=== PATIENT | female | born 1945 ===

== ENCOUNTER → 2020-05-08 14:45 | Outpatient (BNVA) | payer MEDICARE, OTHER, SELFPAY | PROVIDERS: PCP Internal Medicine; Visit Provider Physician Assistant | DX: K59.09 Other constipation (principal); Z78.9 Other specified health status | CPT/HCPCS: Q3014 ==

== ENCOUNTER 2020-07-05 09:37 | Day surgery (SDC) | payer MEDICARE, OTHER, SELFPAY ==
[2020-06-28 16:50] VITALS: BMI 30.9
--- NOTE | 2020-07-04 12:11 | HO.ANESPROP2 ---
Documented by User: Nellie Alvarado 07/04/20 12:12 HPI - Anesthesia Eval Consult details Narrative: 75yo F for Colonoscopy PMFSH Active Problems Active Problems: All Active Problems (Updated 06/28/20 @ 16:45 by Susan Cristina) Poor historian (Acute) Right shoulder pain (Acute) Left hip pain (Acute) Right elbow pain (Acute) Hypovitaminosis D (Acute) Chronic constipation (Acute) Past Medical History Medical History Abdominal gas pain Chronic constipation Headache Hypovitaminosis D Left hip pain Low back pain Right elbow pain Right shoulder pain Seasonal allergies Family History Family History Father Throat cancer Mother Cancer of unknown origin Surgical History Surgical History Hx of cataract extraction Hx of colonoscopy Social History Social History Smoking Status: Never smoker Use of substances other than those prescribed or required for medical reasons: No Advance Directives: No Advance Directives Information Provided: No Advance Directives on File: No Current occupational status: disabled Meds Allergies Allergy/AdvReac Type Severity Reaction Status Date / Time apple [Apple] Allergy Severe THROAT Verified 06/28/20 16:46 SWELLING pear [Pear] Allergy Severe THROAT Verified 06/28/20 16:46 SWELLING banana [BANANA] Allergy Unknown HIVES,THROAT Verified 06/28/20 16:46 SWELLING latex Allergy Rash Verified 06/28/20 16:46 fruits Allergy Unknown anaphylaxis Uncoded 06/28/20 16:46 nuts Allergy Unknown anaphylaxis Uncoded 06/28/20 16:46 Home Medications Medication Instructions Recorded Confirmed Last Taken Type acetaminophen 650 mg 650 mg PO Q8H PRN 05/22/20 06/28/20 Unknown History tablet,extended release cetirizine 10 mg tablet 10 mg PO DAILY PRN 05/22/20 06/28/20 Unknown History cholecalciferol (vitamin D3) 50 50 mcg PO DAILY 05/22/20 06/28/20 Unknown History mcg (2,000 unit) tablet clotrimazole-betamethasone 1 appl TOPICAL BID 05/22/20 05/22/20 Unknown History %-0.05 % topical cream conjugated estrogens 0.625 mg/gram 0 mg VAGINAL 05/22/20 05/22/20 Unknown History vaginal cream diclofenac sodium 1 % topical gel 2 g TOPICAL QID 05/22/20 05/22/20 Unknown History fknkxfsk-pzmikya-iwdw-lutein tablet 1 tab PO .once a day tab 05/22/20 06/28/20 Unknown History oxyquinoline 0.025 %-sodium lauryl ea VAGINAL 2XW 05/22/20 05/22/20 Unknown History sulfate 0.01 % vaginal gel Exam Exam Date and Time: July 04, 2020 121 Height,Weight and Vital Signs: Height 4 ft 9 in Weight 64.864 kg Assessment and Plan Assessment Anesthesia Assessment: Chart Reviewed Documented by User: Joie Gonzalez 07/05/20 10:20 [facility] Past Medical History Medical History Abdominal gas pain Chronic constipation Headache Hypovitaminosis D Left hip pain Low back pain Right elbow pain Right shoulder pain Seasonal allergies Family History Family History Father Throat cancer Mother Cancer of unknown origin Family history of problems with anesthesia: No Surgical History Surgical History Hx of cataract extraction Hx of colonoscopy History of Problems with Anesthesia: No Social History Social History Smoking Status: Never smoker Use of substances other than those prescribed or required for medical reasons: No Advance Directives: No Advance Directives Information Provided: No Advance Directives on File: No Current occupational status: disabled Meds Allergies Allergy/AdvReac Type Severity Reaction Status Date / Time apple [Apple] Allergy Severe THROAT Verified 06/28/20 16:46 SWELLING pear [Pear] Allergy Severe THROAT Verified 06/28/20 16:46 SWELLING banana [BANANA] Allergy Unknown HIVES,THROAT Verified 06/28/20 16:46 SWELLING latex Allergy Rash Verified 06/28/20 16:46 fruits Allergy Unknown anaphylaxis Uncoded 06/28/20 16:46 nuts Allergy Unknown anaphylaxis Uncoded 06/28/20 16:46 Home Medications Medication Instructions Recorded Confirmed Last Taken Type acetaminophen 650 mg 650 mg PO Q8H PRN 05/22/20 06/28/20 Unknown History tablet,extended release cetirizine 10 mg tablet 10 mg PO DAILY PRN 05/22/20 06/28/20 Unknown History cholecalciferol (vitamin D3) 50 50 mcg PO DAILY 05/22/20 06/28/20 Unknown History mcg (2,000 unit) tablet clotrimazole-betamethasone 1 appl TOPICAL BID 05/22/20 05/22/20 Unknown History %-0.05 % topical cream conjugated estrogens 0.625 mg/gram 0 mg VAGINAL 05/22/20 05/22/20 Unknown History vaginal cream diclofenac sodium 1 % topical gel 2 g TOPICAL QID 05/22/20 05/22/20 Unknown History bqlafdxf-leobfgr-koiq-lutein tablet 1 tab PO .once a day tab 05/22/20 06/28/20 Unknown History oxyquinoline 0.025 %-sodium lauryl ea VAGINAL 2XW 05/22/20 05/22/20 Unknown History sulfate 0.01 % vaginal gel Exam Height,Weight and Vital Signs: Vital Signs Temp Pulse Resp BP Pulse Ox 07/05/20 09:45 98.6 F 80 18 112/59 L 98 Airway Mallampati Class: II TM Dist: >3cm Neck ROM: Full Heart: RRR Lungs: CTAB Assessment and Plan Assessment Anesthesia Assessment: Anesthesia Plan Discussed and Chart Reviewed Final Anesthetic Review NPO: Yes ASA Class: II Final Preanesthetic Review: No Changes in Pt Med Stat, Meds/Allgs Chart Reviewed, Consent Obtained/Reviewed and Anes Risks/Benef Reviewed Patient Risk: Low Procedure Risk: Low Assessment/Block/Sedation in SS: Assess/Block/Sedation-SS Anesthetic Plan Anesthetic Plan: MAC: Disposition: Standard PACU
[2020-07-05 09:45] VITALS: BP 112/59; PULSE 80; RESP 18; TEMP 37; O2SAT 98
[2020-07-05] MEDS: Lactated Ringers 1,000 ML 100 ML IVCONT (10:02)
--- NOTE | 2020-07-05 10:18 | MHC.SHP ---
Pre-Procedural Eval Section B Chief Complaint: chronic constipation Relevant Family History (Specify if Yes): No Relevant Social History: None Present Medications: see Short Stay Collaborative assessment Medical History: Significant History (Abdominal gas pain Chronic constipation Headache Hypovitaminosis D Left hip pain Low back pain Right elbow pain Right shoulder pain Seasonal allergies) History of Previous Operations: Relevant previous surgery/procedure and date(s) (Hx of cataract extraction Hx of colonoscopy) Allergies: Allergies Allergy/AdvReac Type Severity Reaction Status Date / Time apple [Apple] Allergy Severe THROAT Verified 06/28/20 16:46 SWELLING pear [Pear] Allergy Severe THROAT Verified 06/28/20 16:46 SWELLING banana [BANANA] Allergy Unknown HIVES,THROAT Verified 06/28/20 16:46 SWELLING latex Allergy Rash Verified 06/28/20 16:46 fruits Allergy Unknown anaphylaxis Uncoded 06/28/20 16:46 nuts Allergy Unknown anaphylaxis Uncoded 06/28/20 16:46 Review of Systems Sugical H&P ROS: Negative: Constitution, Cardiovascular, Respiratory, Neurological, Psychiatric, Hem-Onc, Allergic/Immunologic, Gastrointestinal, Genitourinary, Musculoskeletal, Integumentary, Endocrine and Eyes/Ears/Nose/Throat Exam Surgical H&P Exam: Normal: HEENT, Normal: Heart, Normal: Lungs, Normal: Extremities, Normal: Abdomen, Normal: Skin and Normal: Neurological Plan Diagnosis/Plan: Unchanged I have reviewed the history and physical and performed a pertinent physical examination on my patient. No changes have occurred unless specified.
--- NOTE | 2020-07-05 10:18 | PM.OP ---
Brief Operative Note Date of Service: 07/05/20 Pre-op diagnosis: constipation, rectal bleeding Post-op diagnosis: same Procedure: see op note Surgeon: Dalton Trejo MD Anesthesia: MAC Estimated blood loss (mL): 0 Condition: stable Disposition: PACU
--- NOTE | 2020-07-05 10:19 | W.PM.OPN ---
Operative Note Operative Note Date of Service: 07/05/20 Narrative: Operative Information Procedure Description: Colonoscopy COLONOSCOPY Instrument: Olympus variable stiffness pediatric scope 190L Colonoscopy Monitoring: Vital signs and clinical assessment, continuous EKG monitoring, Pulse oximetry, Carbon Dioxide monitoring and blood pressure monitoring were done throughout the procedure. Colon withdrawal time was 10 minutes. Procedure: The patient was placed in the left lateral decubitis position and pre-procedure medications were administered. After a digital rectal examination of the ano-rectum, the video colonoscope was inserted into the rectum and advanced through the colon to the cecum/TI. The colonoscope was slowly withdrawn in a retrograde panoramic fashion and the colon mucosa was carefully examined including a retroflexed view of the rectum. Findings and interventions are described below. Procedure Difficulty: moderate due to tight colon Findings: Terminal Ileum-normal Cecum:normal Ascending Colon: normal Transverse Colon -normal Descending Colon:normal Sigmoid Colon: few small diverticula seen Rectum: Retroflexion with moderate sized internal hemorrhoids, grade I Anorectum - normal Colon preparation: Davison Bowel Preparation Scale Right colon; 3 Transverse colon: 3 Left colon; 3 (0 = Unprepared colon segment with mucosa not seen due to solid stool that cannot be cleared. 1 = Portion of mucosa of the colon segment seen, but other areas of the colon segment not well seen due to staining, residual stool and/or opaque liquid. 2 = Minor amount of residual staining, small fragments of stool and/or opaque liquid, but mucosa of colon segment seen well. 3 = Entire mucosa of colon segment seen well with no residual staining, small fragments of stool or opaque liquid) Impression and Post Procedure Diagnosis: internal hemorrhoids mild diverticulosis Plan: High fiber diet leaflet Avoid straining at stool, epsom salts and sitz bath, anusol supps or cream as needed Repeat Colonoscopy in 10 years if health allows or earlier if clinically indicated if constipation is ongoing then recommend sitz marker study to check for slow colonic transit and anal rectal manometry to r/o pelvic floor dysfunction Above findings were reviewed with the patient and relevant handouts were provided if indicated.
[2020-07-05 11:05] VITALS: BP 116/63; PULSE 88; RESP 22; TEMP 36.2; O2SAT 96
[2020-07-05 11:33] VITALS: BP 119/56; PULSE 81; RESP 17; TEMP 36.2; O2SAT 96
== END 2020-07-05 12:00 | disposition home or self-care (01) ==
PROVIDERS: PCP Internal Medicine; Visit Provider Internal Medicine Gastroenterology
PROC: 0DJD8ZZ Inspection of Lower Intestinal Tract, Via Natural or Artificial Opening Endoscopic (ICD-10-PCS; CPT 45378; principal; 2020-07-05 10:20)
DX: K59.09 Other constipation (principal); K57.30 Diverticulosis of large intestine without perforation or abscess without bleeding; K64.0 First degree hemorrhoids; R10.9 Unspecified abdominal pain; E55.9 Vitamin D deficiency, unspecified; Z79.899 Other long term (current) drug therapy; Z87.891 Personal history of nicotine dependence
CPT/HCPCS: 45378

== ENCOUNTER 2020-07-17 10:03 | Outpatient (REF) | payer MEDICARE, OTHER, SELFPAY ==
--- NOTE | ~2020-07-17 | XR_ITS ---
EXAMINATION: RIGHT SHOULDER AND LEFT HIP X-RAYS CLINICAL INFORMATION: Pain COMPARISON: None TECHNIQUE: 4 views of the right shoulder and 2 views of the left hip FINDINGS: Right shoulder: Bone alignment is normal. No fracture or dislocation is seen. The glenohumeral joint is normal. There is arthritis at the acromioclavicular joint. Soft tissues are unremarkable. Left hip: Bone alignment is normal. No fracture or dislocation is seen. There is arthritis at the left hip joint with joint space narrowing and osteophyte formation. Soft tissues are unremarkable. XR/XR hip LT min 2V IMPRESSION: Right shoulder: Arthritis at the acromioclavicular joint. Left hip: Arthritis.
--- NOTE | ~2020-07-17 | XR_ITS ---
EXAMINATION: XR ELBOW, RIGHT CLINICAL INFORMATION: Pain COMPARISON: None TECHNIQUE: AP, lateral, and oblique views of the right elbow. FINDINGS: Bone alignment is normal. No fracture or dislocation is seen. The joint spaces are normal. There is are small soft tissue calcifications or ossifications adjacent to the medial and lateral humeral epicondyles. XR/XR elbow RT 2V IMPRESSION: No fracture, dislocation or acute joint effusion seen. Small soft tissue calcifications or ossifications adjacent to the posterolateral humeral epicondyles.
--- NOTE | ~2020-07-17 | XR_ITS ---
EXAMINATION: RIGHT SHOULDER AND LEFT HIP X-RAYS CLINICAL INFORMATION: Pain COMPARISON: None TECHNIQUE: 4 views of the right shoulder and 2 views of the left hip FINDINGS: Right shoulder: Bone alignment is normal. No fracture or dislocation is seen. The glenohumeral joint is normal. There is arthritis at the acromioclavicular joint. Soft tissues are unremarkable. Left hip: Bone alignment is normal. No fracture or dislocation is seen. There is arthritis at the left hip joint with joint space narrowing and osteophyte formation. Soft tissues are unremarkable. XR/XR shoulder RT min 2V IMPRESSION: Right shoulder: Arthritis at the acromioclavicular joint. Left hip: Arthritis.
[2020-07-21 13:31] LABS: Vitamin D 25-OH, D2 8 ng/mL; Vitamin D 25-OH, D3 21 ng/mL; Vitamin D 25-OH, Total 29 ng/mL (30-100)
== END 2020-07-17 10:04 | disposition home or self-care (01) ==
LOC: HO.LAB 10:03
PROVIDERS: PCP Internal Medicine; Visit Provider Internal Medicine
DX: M25.521 Pain in right elbow (principal); M25.552 Pain in left hip; M25.511 Pain in right shoulder; E55.9 Vitamin D deficiency, unspecified
CPT/HCPCS: 36415; 73030; 73070; 73502; 82306

== ENCOUNTER 2021-01-10 10:07 | Outpatient (REF) | payer MEDICARE, OTHER, SELFPAY | END 2021-01-10 10:08 | disposition home or self-care (01) | LOC: HO.LAB 10:07 | PROVIDERS: PCP Internal Medicine; Visit Provider Internal Medicine | DX: Z20.822 Contact with and (suspected) exposure to COVID-19 (principal) | CPT/HCPCS: C9803; U0003; U0005 ==

== ENCOUNTER 2021-02-14 11:32 | Outpatient (REF) | payer MEDICARE, OTHER, SELFPAY ==
--- NOTE | ~2021-02-14 | MM_ITS ---
EXAMINATION: MM SCREENING DIGITAL BREAST TOMOSYNTHESIS, BILATERAL CLINICAL INFORMATION: Screening. Asymptomatic. The lifetime risk of breast cancer based on the Tyrer-Cuzick Model is 2.0%. COMPARISON: Mammography: January 11, 2020 and studies dating back to April 15, 2012 TECHNIQUE: Digital breast tomosynthesis is performed in both the craniocaudal and mediolateral oblique views along with computer-aided detection (CAD). Synthesized 2D images are generated from the tomosynthesis. FINDINGS: There are scattered areas of fibroglandular density (ACR BI-RADS breast composition Category b). There are no significant masses, abnormal calcifications, or other abnormalities. MM/MM tomosynthesis screening BI IMPRESSION: There are no significant changes from prior study. ASSESSMENT: BI-RADS 1: Negative RECOMMENDATION: Routine annual mammography screening. This patient's information was entered into a reminder system with a target due date for their next mammogram.
== END 2021-02-14 11:33 | disposition home or self-care (01) ==
LOC: HO.MAMMO 11:32
PROVIDERS: Visit Provider Internal Medicine
DX: Z12.31 Encounter for screening mammogram for malignant neoplasm of breast (principal)
CPT/HCPCS: 77063; 77067

== ENCOUNTER 2021-04-17 12:39 | Outpatient (REF) | payer MEDICARE, MEDICAID, SELFPAY ==
[2021-04-17 16:16] LABS: COVID-19 Test Negative (Negative); IDNOW Serial# 55D5AD1C
== END 2021-04-17 12:40 | disposition home or self-care (01) ==
LOC: HO.LAB 12:39
PROVIDERS: Visit Provider Internal Medicine
DX: Z20.822 Contact with and (suspected) exposure to COVID-19 (principal)
CPT/HCPCS: 36415; 87635; C9803

== ENCOUNTER 2021-05-27 10:23 | Outpatient (REF) | payer MEDICARE, SELFPAY ==
[2021-05-27 12:15] LABS: Alanine Aminotransferase 13 U/L (0-31); Alkaline Phosphatase 99 U/L (39-117); Anion Gap 10 (12-20); Aspartate Amino Transferase 17 U/L (5-31); Bilirubin Total 0.7 mg/dL (0.0-1.0); Blood Urea Nitrogen 13 mg/dL (9-16); Calcium 9.6 mg/dL (8.4-10.2); Carbon Dioxide 28 mmol/L (22-29); Chloride 107 mmol/L (96-108); Cholesterol 196 mg/dL; Estimated Glomerular Filt Rate > 60; Glucose Fasting 107 mg/dL (60-99); HDL Cholesterol 42 mg/dL; LDL Cholesterol Calculated 110 mg/dl; Potassium 4.4 mmol/L (3.3-5.1); Sodium 141 mmol/L (135-145); Total Protein 7.5 g/dL (6.5-8.0); Triglycerides 220 mg/dL
== END 2021-05-27 10:24 | disposition home or self-care (01) ==
LOC: HO.LAB 10:23
PROVIDERS: PCP Internal Medicine; Visit Provider Internal Medicine
DX: Z00.00 Encounter for general adult medical examination without abnormal findings (principal); E78.5 Hyperlipidemia, unspecified
CPT/HCPCS: 36415; 80053; 80061

== ENCOUNTER 2021-06-12 08:29 | Outpatient (REF) | payer MEDICARE, SELFPAY ==
--- NOTE | ~2021-06-12 | MM_ITS ---
EXAMINATION: BONE DENSITOMETRY CLINICAL INDICATION: Menopause. COMPARISON: Previous BD dated 05/25/2018 and baseline BD dated 10/30/2006. TECHNIQUE: Using a [employer] DXA System (software version: 13.1) manufactured by [employer], dual-energy x-ray absorptiometry was performed of the lumbar spine and left hip. The images are of good technical quality. Summary results are attached. FINDINGS: AP SPINE L1-L4: Current: BMD 1.042 g/cm2, Z-score 0.6, T-score -1.1, osteopenia, 0.5% increase from previous, 0.4% increase from baseline (<5% change is not significant). Prior: BMD 1.037 g/cm2. Baseline: BMD 1.038 g/cm2. LEFT FEMUR, NECK: Current: BMD 0.741 g/cm2, Z-score -0.3, T-score -2.1, osteopenia. Prior: BMD 0.799 g/cm2. Baseline: BMD 0.788 g/cm2. LEFT FEMUR, TOTAL: Current: BMD 0.881 g/cm2, Z-score 0.7, T-score -1.0, normal, 3.5% decrease from previous, 3.6% decrease from baseline (<5% change is not significant). Prior: BMD 0.913 g/cm2. Baseline: BMD 0.914 g/cm2. IDENTIFIED RISK FACTORS: Menopause. HISTORY OF FRACTURE: None listed. MEDICATIONS: Calcium, vitamin D. MM/XR DEXA axial skeleton IMPRESSION: 1. DIAGNOSIS: Osteopenia based on the lowest T-score value of -2.1 in the femoral neck applying World Health Organization criteria. 2. 10-YEAR FRACTURE RISK PREDICTION, FRAX: Major osteoporotic fracture (clinical spine, forearm, hip or shoulder) 7.7%. Hip fracture 2.0%. 3. Treatment Recommendations: NOF guidelines recommend consideration for treatment in postmenopausal women and men age 50 and older presenting with the following: -A hip or vertebral (clinical or morphometric) fracture. -T-score less than or equal to -2.5 at the femoral neck or spine after appropriate evaluation to exclude secondary causes. -Low bone mass at the hip or spine and a 10-year fracture probability by FRAX of greater than or equal to 3% for hip fracture or greater than or equal to 20% for major osteoporotic fracture based on the [place] adapted WHO algorithm. 4. Other Recommendations: All treatment decisions require clinical judgment and consideration of individual patient factors, including patient preferences, comorbidities, previous drug use, risk factors not captured in the FRAX model (e.g. frailty, falls, vitamin D deficiency, increased bone turnover, interval significant decline in bone density) and possible under or overestimation of fracture risk by FRAX. Additional medical evaluation for secondary cause of low bone mineral density may be appropriate. FUTURE SCAN RECOMMENDATION: People with diagnosed cases of osteoporosis or at high risk for fracture should have regular bone mineral density tests. For patients eligible for Medicare, routine testing is allowed once every 2 years. The testing frequency can be increased to one year for patients who have rapidly progressing disease, those who are receiving or discontinuing medical therapy to restore bone mass, or have additional risk factors.
== END 2021-06-12 08:30 | disposition home or self-care (01) ==
LOC: HO.MAMMO 08:29
PROVIDERS: PCP Internal Medicine; Visit Provider Internal Medicine
DX: Z13.820 Encounter for screening for osteoporosis (principal); M85.80 Other specified disorders of bone density and structure, unspecified site; Z78.0 Asymptomatic menopausal state; Z79.899 Other long term (current) drug therapy
CPT/HCPCS: 77080

== ENCOUNTER 2022-02-07 10:12 | Outpatient (REF) | payer MEDICARE, SELFPAY ==
[2022-02-07 11:32] LABS: Alanine Aminotransferase 12 U/L (0-31); Albumin Level 4.1 g/dL (3.5-5.0); Alkaline Phosphatase 94 U/L (39-117); Anion Gap 15 (12-20); Aspartate Amino Transferase 19 U/L (5-31); Bilirubin Total 0.6 mg/dL (0.0-1.0); Blood Urea Nitrogen 18 mg/dL (9-16); Calcium 9.6 mg/dL (8.4-10.2); Carbon Dioxide 26 mmol/L (22-29); Chloride 107 mmol/L (96-108); Cholesterol 191 mg/dL; Estimated Glomerular Filt Rate > 60; Glucose Fasting 127 mg/dL (60-99); HDL Cholesterol 46 mg/dL; LDL Cholesterol Calculated 110 mg/dl; Potassium 4.2 mmol/L (3.3-5.1); Sodium 144 mmol/L (135-145); Total Protein 7.4 g/dL (6.5-8.0); Triglycerides 176 mg/dL
== END 2022-02-07 10:13 | disposition home or self-care (01) ==
LOC: HO.LAB 10:12
PROVIDERS: PCP Internal Medicine; Visit Provider Internal Medicine
DX: E78.5 Hyperlipidemia, unspecified (principal); L98.9 Disorder of the skin and subcutaneous tissue, unspecified; E55.9 Vitamin D deficiency, unspecified
CPT/HCPCS: 36415; 80053; 80061; 82306

== ENCOUNTER 2022-02-17 12:03 | Outpatient (REF) | payer MEDICARE, SELFPAY ==
--- NOTE | ~2022-02-17 | MM_ITS ---
EXAMINATION: MM SCREENING DIGITAL BREAST TOMOSYNTHESIS, BILATERAL CLINICAL INFORMATION: Screening. Asymptomatic. The lifetime risk of breast cancer based on the Tyrer-Cuzick Model is under 3%. COMPARISON: Mammography: 02/14/2021, 01/11/2020, 01/05/2019, 01/07/2018 TECHNIQUE: Digital breast tomosynthesis is performed in both the craniocaudal and mediolateral oblique views along with computer-aided detection (CAD). Synthesized 2D images are generated from the tomosynthesis. FINDINGS: There are scattered areas of fibroglandular density (ACR BI-RADS breast composition Category b). Parenchymal pattern is similar to prior studies. Scattered asymmetries are stable including the posterior outer right breast. There is no developing density or interval architectural abnormality or mass or abnormal calcifications. The axilla and skin contours are unremarkable. No significant changes. MM/MM tomosynthesis screening BI IMPRESSION: No mammographic evidence of malignancy. ASSESSMENT: BI-RADS 2: Benign RECOMMENDATION: Routine annual mammography screening. This patient's information was entered into a reminder system with a target due date for their next mammogram.
== END 2022-02-17 12:04 | disposition home or self-care (01) ==
LOC: HO.MAMMO 12:03
PROVIDERS: PCP Internal Medicine; Visit Provider Internal Medicine
DX: Z12.31 Encounter for screening mammogram for malignant neoplasm of breast (principal)
CPT/HCPCS: 77063; 77067

== ENCOUNTER 2022-05-06 08:00 | Outpatient (REF) | payer OTHER, SELFPAY ==
[2022-05-06 09:19] LABS: Alanine Aminotransferase 16 U/L (0-31); Albumin Level 3.9 g/dL (3.5-5.0); Alkaline Phosphatase 106 U/L (39-117); Anion Gap 12 (12-20); Aspartate Amino Transferase 16 U/L (5-31); Bilirubin Total 0.3 mg/dL (0.0-1.0); Blood Urea Nitrogen 18 mg/dL (9-16); Calcium 9.2 mg/dL (8.4-10.2); Carbon Dioxide 26 mmol/L (22-29); Chloride 109 mmol/L (96-108); Cholesterol 166 mg/dL; Estimated Glomerular Filt Rate > 60; Glucose Fasting 103 mg/dL (60-99); HDL Cholesterol 37 mg/dL; LDL Cholesterol Calculated 85 mg/dl; Potassium 4.2 mmol/L (3.3-5.1); Sodium 143 mmol/L (135-145); Total Protein 7.2 g/dL (6.5-8.0); Triglycerides 220 mg/dL
[2022-05-06 09:35] LABS: Vitamin D 25-OH Total 31.6 ng/mL (>30)
== END 2022-05-06 08:01 | disposition home or self-care (01) ==
LOC: HO.LAB 08:00
PROVIDERS: PCP Internal Medicine; Visit Provider Internal Medicine
DX: E55.9 Vitamin D deficiency, unspecified (principal); M85.80 Other specified disorders of bone density and structure, unspecified site; E78.2 Mixed hyperlipidemia
CPT/HCPCS: 36415; 80053; 80061; 82306

== ENCOUNTER 2022-08-28 10:16 | Outpatient (REF) | payer MEDICARE, SELFPAY | END 2022-08-28 10:17 | disposition home or self-care (01) | LOC: HO.SH 10:16 | PROVIDERS: Visit Provider Internal Medicine | DX: Z01.118 Encounter for examination of ears and hearing with other abnormal findings (principal); H90.3 Sensorineural hearing loss, bilateral | CPT/HCPCS: 92557; 92567 ==

== ENCOUNTER 2022-12-24 08:05 | Outpatient (AMB) | payer MEDICARE, SELFPAY ==
[2022-12-24 08:14] VITALS: BP 118/62; BMI 29.6
--- NOTE | 2022-12-24 08:14 | MHC.PC.OV ---
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 Accompanied by: Self / Same As Patient Allergies apple [Apple] Allergy (Severe, Verified 12/24/22 08:31) THROAT SWELLING pear [Pear] Allergy (Severe, Verified 12/24/22 08:31) THROAT SWELLING banana [BANANA] Allergy (Intermediate, Verified 12/24/22 08:31) HIVES,THROAT SWELLING latex Allergy (Intermediate, Verified 12/24/22 08:31) Rash nystatin Allergy (Intermediate, Verified 12/24/22 08:31) swelling nuts Allergy (Severe, Uncoded 12/24/22 08:31) anaphylaxis fruits Allergy (Intermediate, Uncoded 12/24/22 08:31) anaphylaxis Medication List - Last Reconciled 12/24/22 by Chela Mansfield MD acetaminophen ER 650 mg PO Q8H PRN 30 days calcium carbonate 1,200 mg (2 x 600 mg calcium (1,500 mg)) PO DAILY 90 days cetirizine 10 mg PO DAILY PRN 90 days cholecalciferol (vitamin D3) 25 mcg PO DAILY 90 days clotrimazole-betamethasone 1-0.05 % 1 appl topical BID diclofenac sodium 1% 2 grams topical QID 30 days docusate sodium (Colace) 200 mg (2 x 100 mg) PO BEDTIME hydroxyzine HCl 25 mg PO BEDTIME 30 days magnesium 250 mg PO DAILY 90 days melatonin 5 mg PO BEDTIME PRN 90 days mirabegron ER (Myrbetriq) 25 mg PO DAILY 90 days ucucjrfs-uezkajm-morx-lutein 1 tab PO .once a day nystatin 1 appl topical DAILY 2 weeks oxyquinoline-sod.lauryl sulfat 0.025-0.01 % 1 ea vaginal 2XW 30 days polyethylene glycol 3350 (Miralax) 17 grams PO DAILY Tobacco use date assessed: 05/28/22 Fall risk assessment: No Falls in past year Last assessed Fall Risk: 12/24/22 Dental Screening Dental Screen Date: 12/24/22 Did you have a dental visit in the last 12 months?: No Did you have a dental problem in the last 6 months where you did not have access to dental care?: No Was dental information given to patient?: Patient has dentist HPI HPI Comments History of Present Illness Details This is a 77-year-old female with chronic constipation that complains of lumbar pain, left knee pain and voice tremor that has been present for years. Chronic constipation stable with medications. She denies any fever, bowel or bladder incontinence. Lumbar pain does not radiate to the legs. Left knee pain aggravated by standing up and walking. Has full active range of motion. No chest pain or shortness of breath. [facility] Medical History (Updated 12/24/22 @ 09:27 by Chela Mansfield MD) Abdominal gas pain Chronic constipation Headache Hypovitaminosis D Left hip pain Low back pain Physical exam Postmenopausal Right elbow pain Right shoulder pain Seasonal allergies Surgical History Hx of cataract extraction Hx of colonoscopy Family History Father Throat cancer Mother Cancer of unknown origin Social History Household Members Other:: alone Housing: Apartment Alcohol intake: current Alcohol intake frequency: holidays/special occasions only Alcohol type: wine and hard liquor Patient Tobacco Use Status: Never used Tobacco e-Cigarette/Vaping Use: Never Used Second Hand Smoke Exposure: No service: No Current occupational status: disabled Cognitive needs: No Hearing needs: Yes Vision needs: Yes Questionnaire Thrive Questionnaire Date Thrive assessed: 05/28/22 SUSI-7 AMB Questionnaire SUSI-7 Date SUSI - 7 assessed: 05/28/22 Source: Developed by Drs. Jeronimo De Leon, Joy Dominguez, Adonis Seth and colleagues, with an educational kristal from [employer]. Review of Systems Const All systems reviewed & are unremarkable except as noted in HPI and below Eyes Reports no additional complaints, Denies change in vision and Denies other visual disturbances Card Denies chest pain at rest, Denies chest pain with activity, Denies edema, Denies irregular heart rhythm, Denies claudication, Denies dyspnea, Denies dyspnea on exertion, Denies orthopnea, Denies paroxysmal nocturnal dyspnea and Denies slow heart rate Resp Denies cough, Denies dyspnea and Denies dyspnea on exertion GI Denies abdominal pain, Denies change in bowel habits, Denies excessive flatus, Denies nausea and Denies vomiting Denies urinary incontinence, Denies urinary hesitancy and Denies urinary urgency Musc Denies abnormal gait, Denies atrophy, Denies deformity and Denies limited range of motion Skin/Breast Denies bleeding lesions, Denies changing lesions and Denies rash Neuro Denies abnormal gait and Denies lack of coordination Physical exam (Primary Care) Vital Signs: Last Vital Signs BP 118/62 12/24/22 08:14 BMI result Body Mass Index 29.6 Tobacco/Smoking Status: Tobacco use Status Tobacco use date assessed 05/28/22 12/24/22 08:21 Patient Tobacco Use Status Never used Tobacco 12/24/22 08:21 e-Cigarette/Vaping Use Never Used 12/24/22 08:21 Thrive Assessment: Date of Thrive Assessment Date Thrive assessed 05/28/22 12/24/22 08:21 Eyes General: appearance normal, both eyes and all related structures Eyelids: Yes eyelids normal Conjunctivae: conjunctivae normal Neck Neck: Yes normal visual inspection and Yes supple Resp Effort & Inspection: normal respiratory effort Auscultation: clear to auscultation bilaterally Cardio Jugular venous distension: no JVD Rate: regular rate Rhythm: regular rhythm Heart sounds: S1 normal heart sound present and S2 normal heart sound present Extrem General: Yes full ROM Assessment and Plan Assessment & Plan (1) Chronic constipation: Comment: Pleasant 75-year-old female follows up after recent colonoscopy no polyps. She is very happy. Reinforced importance of High-fiber diet, as well as consistent bowel regimen colace q.h.s., MiraLax We reviewed procedure report avoid straining. hemorrhoidal cream that has been effective. Asymptomatic screening colonoscopy 10 years Encouraged to call questions or concerns Code(s): K59.09 - Other constipation Plan: Continue docusate as needed. (2) Voice tremor: Code(s): R49.8 - Other voice and resonance disorders Plan: Referred to speech therapy. Or ready saw ENT which did laryngoscopy and was normal. (3) Lumbar pain: Code(s): M54.50 - Low back pain, unspecified Plan: X-ray ordered. (4) Left knee pain: Code(s): M25.562 - Pain in left knee Plan: X-ray of the knee order. Orders: Orders XR knee LT 2V Today M25.562 - Pain in left knee XR lumbar spine 2-3V Today M54.50 - Low back pain, unspecified XR KUB Today N23 - Unspecified renal colic Referrals Speech and Hearing Referral R49.8 - Other voice and resonance disorders Medications: New carbamide peroxide 6.5% (Murine Ear) 5 drps otic (ear) left DAILY 4 days 15 mL 0RF Changed From bquzyzpj-xlnnwtu-irii-lutein 1 tab PO .once a day To cxrwicvj-xjffgkd-uvzk-lutein 1 tab PO .once a day 90 days 90 tabs 3RF Refilled acetaminophen ER 650 mg PO Q8H 30 days PRN 90 tabs 1RF Pain cetirizine 10 mg PO DAILY 90 days PRN 90 tabs 0RF Allergy Symptoms cholecalciferol (vitamin D3) 25 mcg PO DAILY 90 days 90 caps 1RF M85.80 - Other specified disorders of bone density and structure, unspecified site docusate sodium (Colace) 200 mg (2 x 100 mg) PO BEDTIME 60 caps 5RF magnesium 250 mg PO DAILY 90 days 90 tabs 0RF melatonin 5 mg PO BEDTIME 90 days PRN 90 tabs 0RF sleep mirabegron ER (Myrbetriq) 25 mg PO DAILY 90 days 90 tabs 1RF polyethylene glycol 3350 (Miralax) 17 grams PO DAILY 510 grams 2RF Coding Level of Care Code Est Pt Level 4 (63525) Diagnoses Chronic constipation K59.09 Voice tremor R49.8 Lumbar pain M54.50 Left knee pain M25.562 Time Spent (min) 21
== END 2022-12-24 08:50 | disposition home or self-care (01) ==
PROVIDERS: PCP Internal Medicine; Visit Provider Internal Medicine
DX: K59.09 Other constipation (principal); R49.8 Other voice and resonance disorders; M54.50 Low back pain, unspecified; M25.562 Pain in left knee
CPT/HCPCS: 99214

== ENCOUNTER 2022-12-24 08:57 | Outpatient (REF) | payer OTHER, SELFPAY ==
--- NOTE | ~2022-12-24 | XR_ITS ---
EXAMINATION: XR LUMBAR SPINE XR KIDNEY, URETER AND BLADDER XR LEFT KNEE CLINICAL INDICATION: Low back pain, abdominal pain and left knee pain. COMPARISON: Left knee 05/25/2018. TECHNIQUE: Lumbar spine 3 views. Kidney, ureter and bladder 2 views. Left knee 2 views. FINDINGS: LUMBAR SPINE: There is normal lumbar lordosis. The vertebral heights, alignment and the disc heights are normal. There is no visible acute fracture, dislocation or lytic process seen. There is mild ventral spondylosis of the superior endplate L3 and L4 vertebra. No aggressive lytic or sclerotic process seen. SI joints are symmetrical and normal. KIDNEY, URETER AND BLADDER: No radiopaque calculi seen. The bowel gas pattern is nonspecific. No organomegaly. No gross bony abnormality. LEFT KNEE: There is mild loss of medial and patellofemoral compartment joint space. No loose bodies, joint effusion or bony erosive changes. No fracture or dislocation. XR/XR lumbar spine 2-3V IMPRESSION: 1. Unremarkable lumbar spine exam except for mild ventral spondylosis at L3 and L4 vertebra. No visible acute fracture, dislocation or lytic process seen. 2. Unremarkable left knee exam. 3. Unremarkable kidney, ureter and bladder.
--- NOTE | ~2022-12-24 | XR_ITS ---
EXAMINATION: XR LUMBAR SPINE XR KIDNEY, URETER AND BLADDER XR LEFT KNEE CLINICAL INDICATION: Low back pain, abdominal pain and left knee pain. COMPARISON: Left knee 05/25/2018. TECHNIQUE: Lumbar spine 3 views. Kidney, ureter and bladder 2 views. Left knee 2 views. FINDINGS: LUMBAR SPINE: There is normal lumbar lordosis. The vertebral heights, alignment and the disc heights are normal. There is no visible acute fracture, dislocation or lytic process seen. There is mild ventral spondylosis of the superior endplate L3 and L4 vertebra. No aggressive lytic or sclerotic process seen. SI joints are symmetrical and normal. KIDNEY, URETER AND BLADDER: No radiopaque calculi seen. The bowel gas pattern is nonspecific. No organomegaly. No gross bony abnormality. LEFT KNEE: There is mild loss of medial and patellofemoral compartment joint space. No loose bodies, joint effusion or bony erosive changes. No fracture or dislocation. XR/XR knee LT 2V IMPRESSION: 1. Unremarkable lumbar spine exam except for mild ventral spondylosis at L3 and L4 vertebra. No visible acute fracture, dislocation or lytic process seen. 2. Unremarkable left knee exam. 3. Unremarkable kidney, ureter and bladder.
--- NOTE | ~2022-12-24 | XR_ITS ---
EXAMINATION: XR LUMBAR SPINE XR KIDNEY, URETER AND BLADDER XR LEFT KNEE CLINICAL INDICATION: Low back pain, abdominal pain and left knee pain. COMPARISON: Left knee 05/25/2018. TECHNIQUE: Lumbar spine 3 views. Kidney, ureter and bladder 2 views. Left knee 2 views. FINDINGS: LUMBAR SPINE: There is normal lumbar lordosis. The vertebral heights, alignment and the disc heights are normal. There is no visible acute fracture, dislocation or lytic process seen. There is mild ventral spondylosis of the superior endplate L3 and L4 vertebra. No aggressive lytic or sclerotic process seen. SI joints are symmetrical and normal. KIDNEY, URETER AND BLADDER: No radiopaque calculi seen. The bowel gas pattern is nonspecific. No organomegaly. No gross bony abnormality. LEFT KNEE: There is mild loss of medial and patellofemoral compartment joint space. No loose bodies, joint effusion or bony erosive changes. No fracture or dislocation. XR/XR KUB IMPRESSION: 1. Unremarkable lumbar spine exam except for mild ventral spondylosis at L3 and L4 vertebra. No visible acute fracture, dislocation or lytic process seen. 2. Unremarkable left knee exam. 3. Unremarkable kidney, ureter and bladder.
== END 2022-12-24 08:58 | disposition home or self-care (01) ==
LOC: HO.XRAY 08:57
PROVIDERS: PCP Internal Medicine; Visit Provider Internal Medicine
DX: M54.50 Low back pain, unspecified (principal); M25.562 Pain in left knee; N23 Unspecified renal colic
CPT/HCPCS: 72100; 73560; 74018

== ENCOUNTER 2023-01-08 15:47 | Outpatient (AMB) | payer OTHER, SELFPAY ==
--- NOTE | 2023-01-08 15:55 | MHC.PC.OV ---
Vital Signs 01/08/23 15:58 Height 4 ft 9 in Weight 137 lb BMI 29.6 BP 120/58 L Blood Pressure Location Lt brachial Position Sitting Intake Visit Reasons: hoarse voice Intake Note: Patient here for follow up Hoarse voice, cough, phlegm, left side low back pain, ? 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 Accompanied by: Self / Same As Patient Allergies apple [Apple] Allergy (Severe, Verified 01/08/23 16:12) THROAT SWELLING pear [Pear] Allergy (Severe, Verified 01/08/23 16:12) THROAT SWELLING banana [BANANA] Allergy (Intermediate, Verified 01/08/23 16:12) HIVES,THROAT SWELLING latex Allergy (Intermediate, Verified 01/08/23 16:12) Rash nystatin Allergy (Intermediate, Verified 01/08/23 16:12) swelling nuts Allergy (Severe, Uncoded 01/08/23 16:12) anaphylaxis fruits Allergy (Intermediate, Uncoded 01/08/23 16:12) anaphylaxis Medication List - Last Reconciled 01/08/23 by Chela Mansfield MD acetaminophen ER 650 mg PO Q8H PRN 30 days calcium carbonate 1,200 mg (2 x 600 mg calcium (1,500 mg)) PO DAILY 90 days carbamide peroxide 6.5% (Murine Ear) 5 drps otic (ear) left DAILY 4 days cetirizine 10 mg PO DAILY PRN 90 days cholecalciferol (vitamin D3) 25 mcg PO DAILY 90 days clotrimazole-betamethasone 1-0.05 % 1 appl topical BID diclofenac sodium 1% 2 grams topical QID 30 days docusate sodium (Colace) 200 mg (2 x 100 mg) PO BEDTIME hydroxyzine HCl 25 mg PO BEDTIME 30 days magnesium 250 mg PO DAILY 90 days melatonin 5 mg PO BEDTIME PRN 90 days mirabegron ER (Myrbetriq) 25 mg PO DAILY 90 days dxqvlmgc-anadyqs-gvay-lutein 1 tab PO .once a day 90 days nystatin 1 appl topical DAILY 2 weeks oxyquinoline-sod.lauryl sulfat 0.025-0.01 % 1 ea vaginal 2XW 30 days polyethylene glycol 3350 (Miralax) 17 grams PO DAILY Tobacco use date assessed: 05/28/22 Fall risk assessment: No Falls in past year Last assessed Fall Risk: 01/08/23 Dental Screening Dental Screen Date: 01/08/23 Did you have a dental visit in the last 12 months?: No Did you have a dental problem in the last 6 months where you did not have access to dental care?: No Was dental information given to patient?: Patient has dentist HPI HPI Comments History of Present Illness Details This is a 77-year-old female with chronic constipation, urge urinary incontinence and chronic lumbar pain that comes today complaining of productive cough that has been present for about 10 days. Started with a common cold and cough persisted. Feels markedly improved. Constipation stable with medications. Incontinence well controlled with [employer]. On Tylenol for lumbar pain as needed. [facility] Medical History (Updated 01/08/23 @ 16:30 by Chela Mansfield MD) Postmenopausal Physical exam Headache Low back pain Seasonal allergies Abdominal gas pain Right shoulder pain Left hip pain Right elbow pain Hypovitaminosis D Chronic constipation Surgical History Hx of colonoscopy Hx of cataract extraction Family History Father Throat cancer Mother Cancer of unknown origin Social History Household Members Other:: alone Housing: Apartment Alcohol intake: current Alcohol intake frequency: holidays/special occasions only Alcohol type: wine and hard liquor Patient Tobacco Use Status: Never used Tobacco e-Cigarette/Vaping Use: Never Used Second Hand Smoke Exposure: No service: No Current occupational status: disabled Cognitive needs: No Hearing needs: Yes Vision needs: Yes Questionnaire Thrive Questionnaire Date Thrive assessed: 05/28/22 SUSI-7 AMB Questionnaire SUSI-7 Date SUSI - 7 assessed: 05/28/22 Source: Developed by Drs. Jeronimo De Leon, Joy Dominguez, Adonis Seth and colleagues, with an educational kristal from [employer]. Review of Systems Const All systems reviewed & are unremarkable except as noted in HPI and below Eyes Reports no additional complaints, Denies change in vision and Denies other visual disturbances Card Denies chest pain at rest, Denies chest pain with activity, Denies edema, Denies irregular heart rhythm, Denies claudication, Denies dyspnea, Denies dyspnea on exertion, Denies orthopnea, Denies paroxysmal nocturnal dyspnea and Denies slow heart rate Resp Denies cough, Denies dyspnea and Denies dyspnea on exertion GI Denies abdominal pain, Denies change in bowel habits, Reports constipation, Denies excessive flatus, Denies nausea and Denies vomiting Reports urinary incontinence, Denies urinary hesitancy and Denies urinary urgency Musc Denies abnormal gait, Reports back pain, Denies atrophy, Denies deformity and Denies limited range of motion Skin/Breast Denies bleeding lesions, Denies changing lesions and Denies rash Neuro Denies abnormal gait and Denies lack of coordination Physical exam (Primary Care) Vital Signs: Last Vital Signs BP 120/58 L 01/08/23 15:58 BMI result Body Mass Index 29.6 Tobacco/Smoking Status: Tobacco use Status Tobacco use date assessed 05/28/22 01/08/23 15:57 Patient Tobacco Use Status Never used Tobacco 01/08/23 15:57 e-Cigarette/Vaping Use Never Used 01/08/23 15:57 Thrive Assessment: Date of Thrive Assessment Date Thrive assessed 05/28/22 01/08/23 15:57 Eyes General: appearance normal, both eyes and all related structures Eyelids: Yes eyelids normal Conjunctivae: conjunctivae normal Neck Neck: Yes normal visual inspection and Yes supple Resp Effort & Inspection: normal respiratory effort Auscultation: clear to auscultation bilaterally Cardio Jugular venous distension: no JVD Rate: regular rate Rhythm: regular rhythm Heart sounds: S1 normal heart sound present and S2 normal heart sound present Extrem General: Yes full ROM Assessment and Plan Assessment & Plan (1) Common cold: Code(s): J00 - Acute nasopharyngitis [common cold] Plan: Start benzonatate (2) Urge urinary incontinence: Code(s): N39.41 - Urge incontinence Plan: Continue Myrbetriq. (3) Chronic constipation: Comment: Pleasant 75-year-old female follows up after recent colonoscopy no polyps. She is very happy. Reinforced importance of High-fiber diet, as well as consistent bowel regimen colace q.h.s., MiraLax We reviewed procedure report avoid straining. hemorrhoidal cream that has been effective. Asymptomatic screening colonoscopy 10 years Encouraged to call questions or concerns Code(s): K59.09 - Other constipation Plan: Continue Colace as needed. (4) Lumbar pain: Code(s): M54.50 - Low back pain, unspecified Plan: Continue Tylenol as needed. Medications: New benzonatate 100 mg PO BID 5 days PRN 10 caps 0RF cough Discontinued hydroxyzine HCl Discontinued Reason: Patient Completed Course 25 mg PO BEDTIME 30 days 30 tabs 0RF Coding Level of Care Code Est Pt Level 4 (63478) Diagnoses Common cold J00 Urge urinary incontinence N39.41 Chronic constipation K59.09 Lumbar pain M54.50 Time Spent (min) 24
[2023-01-08 15:58] VITALS: BP 120/58; BMI 29.6
== END 2023-01-08 16:22 | disposition home or self-care (01) ==
PROVIDERS: PCP Internal Medicine; Visit Provider Internal Medicine
DX: J00 Acute nasopharyngitis [common cold] (principal); N39.41 Urge incontinence; K59.09 Other constipation; M54.50 Low back pain, unspecified
CPT/HCPCS: 99214

== ENCOUNTER 2023-03-02 10:21 | Outpatient (REF) | payer OTHER, SELFPAY | END 2023-03-02 10:22 | disposition home or self-care (01) | LOC: HO.MAMMO 10:21 | PROVIDERS: PCP Internal Medicine; Visit Provider Internal Medicine | DX: Z12.31 Encounter for screening mammogram for malignant neoplasm of breast (principal) | CPT/HCPCS: 77063; 77067 ==

== ENCOUNTER → 2023-03-02 11:15 | Outpatient (BNV) | payer OTHER, SELFPAY | PROVIDERS: PCP Internal Medicine; Visit Provider Radiology Diagnostic Radiology | DX: Z12.31 Encounter for screening mammogram for malignant neoplasm of breast (principal) | CPT/HCPCS: 77063; 77067 ==

== ENCOUNTER 2023-06-29 08:19 | Outpatient (AMB) | payer MEDICARE, SELFPAY ==
--- NOTE | 2023-06-29 08:25 | A.OFFPC_ITS ---
Vital Signs 06/29/23 08:28 Height 4 ft 9 in Weight 140 lb BMI 30.3 BP 120/68 Blood Pressure Location Lt brachial Position Sitting Intake Visit Reasons: Annual Exam Intake Note: Patient here for an annual physical exam, c/o toe pain right foot, ? 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 Accompanied by: Self / Same As Patient Allergies apple [Apple] Allergy (Severe, Verified 06/29/23 08:41) THROAT SWELLING pear [Pear] Allergy (Severe, Verified 06/29/23 08:41) THROAT SWELLING banana [BANANA] Allergy (Intermediate, Verified 06/29/23 08:41) HIVES,THROAT SWELLING latex Allergy (Intermediate, Verified 06/29/23 08:41) Rash nystatin Allergy (Intermediate, Verified 06/29/23 08:41) swelling nuts Allergy (Severe, Uncoded 06/29/23 08:41) anaphylaxis fruits Allergy (Intermediate, Uncoded 06/29/23 08:41) anaphylaxis Medication List - Last Reconciled 06/29/23 by Chela Mansfield MD acetaminophen ER 650 mg PO Q8H PRN 30 days benzonatate 100 mg PO BID PRN 5 days calcium carbonate 1,200 mg (2 x 600 mg calcium (1,500 mg)) PO DAILY 90 days cetirizine 10 mg PO DAILY PRN 90 days cholecalciferol (vitamin D3) 25 mcg PO DAILY 90 days clotrimazole-betamethasone 1-0.05 % 1 appl topical BID diclofenac sodium 1% 2 grams topical QID 30 days docusate sodium (Colace) 200 mg (2 x 100 mg) PO BEDTIME epinephrine (EpiPen) 0.3 mg (0.3 mL) IM Q4H PRN 30 days magnesium 250 mg PO DAILY 90 days melatonin 5 mg PO BEDTIME PRN 90 days mirabegron ER (Myrbetriq) 25 mg PO DAILY 90 days cjgtvzdw-vnxbsfm-dgot-lutein 1 tab PO .once a day 90 days nystatin 1 appl topical DAILY 2 weeks oxyquinoline-sod.lauryl sulfat 0.025-0.01 % 1 ea vaginal 2XW 30 days polyethylene glycol 3350 (Miralax) 17 grams PO DAILY Tobacco use date assessed: 06/29/23 Fall risk assessment: No Falls in past year Last assessed Fall Risk: 06/29/23 Dental Screening Dental Screen Date: 06/29/23 Did you have a dental visit in the last 12 months?: Yes Did you have a dental problem in the last 6 months where you did not have access to dental care?: No Was dental information given to patient?: Patient has dentist HPI HPI Comments History of Present Illness Details This is a 78-year-old female that comes for her physical exam. Last mammogram was 2022. Last bone density was 2021 and will be repeated. Complains of bilateral leg pain aggravated by activity. Had an ankle brachial index done by healthcare workers from her insurance that was 0.71 and will be referred to vascular surgery. Also has external hemorrhoids that are bothering her. [facility] Medical History Postmenopausal Physical exam Headache Low back pain Seasonal allergies Abdominal gas pain Right shoulder pain Left hip pain Right elbow pain Hypovitaminosis D Chronic constipation Surgical History History of tooth extraction Hx of colonoscopy Hx of cataract extraction Family History Father Throat cancer Mother Cancer of unknown origin Social History Household Members Other:: alone Housing: Apartment Alcohol intake: current Alcohol intake frequency: holidays/special occasions only Alcohol type: wine and hard liquor Patient Tobacco Use Status: Never used Tobacco e-Cigarette/Vaping Use: Never Used Second Hand Smoke Exposure: No service: No Current occupational status: disabled Cognitive needs: No Hearing needs: Yes Vision needs: Yes Questionnaire PHQ-9 Over the last 2 weeks, how often have you been bothered by any of the following problems? 1. Little interest or pleasure in doing things: not at all 2. Feeling down, depressed, or hopeless: not at all 3. Trouble falling or staying asleep, or sleeping too much: not at all 4. Feeling tired or having little energy: not at all 5. Poor appetite or overeating: not at all 6. Feeling bad about yourself - or that you are a failure or have let yourself or your family down: not at all 7. Trouble concentrating on things, such as reading the newspaper or watching television: not at all 8. Moving or speaking so slowly that other people could have noticed. Or the opposite - being so fidgety or restless that you have been moving around a lot more than usual: not at all 9. Thoughts that you would be better off or of hurting yourself in some way: not at all Total score: 0 Depression Screening Interpretation: Negative Depression Screening Done: Yes 10403 - PHQ-9 Billing: Yes Source: Developed by Drs. Jeronimo De Leon, Joy Dominguez, Adonis Seth and colleagues, with an educational kristal from [employer]. Thrive Questionnaire Date Thrive assessed: 06/29/23 I am a: Patient What is your living situation today?: I have a steady place to live Within the past 12 months, did the food you bought not last and you didn't have the money to get more?: Never true Within the past 12 months, did you worry whether your food would run out before you got money to buy more?: Never true Do you have trouble paying for medicines?: No Do you have trouble getting transportation to medical appointments?: No Do you have trouble paying your heating and electricity bill?: No Do you have trouble taking care of your child, family member or friend?: No Do you have trouble with day-to-day activities such as bathing, preparing meals, shopping, managing finances, etc.?: No Are you currently unemployed and looking for a job?: No Are you interested in more education?: No Please select the resources that you would like help with: None Currently or been in a relationship where the following occur: no concerns reported THRIVE Score: 0 AUDIT C Alcohol Use Questionnaire (AUDIT-C) 1. How often do you have a drink containing alcohol?: Monthly or less 2. How many drinks containing alcohol do you have on a typical day when you are drinking?: 1 or 2 3. How often do you have six or more drinks on one occasion?: Never Total Score: 1 Score Reviewed/Action Taken: No SUSI-7 AMB Questionnaire SUSI-7 Date SUSI - 7 assessed: 06/29/23 Feeling nervous, anxious, or on edge: 0 = Not at all Not being able to stop or control worryin = Not at all Worrying too much about different things: 0 = Not at all Trouble relaxin = Not at all Being so restless that it is hard to sit still: 0 = Not at all Becoming easily annoyed or irritable: 0 = Not at all Feeling afraid as if something awful might happen: 0 = Not at all Total SUSI-7 score (0-4 normal; 5-9 mild; 10-14 moderate; 15-21 severe): 0 Source: Developed by Drs. Jeronimo De Leon, Joy Dominguez, Adonis Seth and colleagues, with an educational kristal from [employer]. SUSI-7 Assessment Billing SUSI-7 Assessment Tool: SUSI-7 Assessment 68290 Review of Systems Const All systems reviewed & are unremarkable except as noted in HPI and below Eyes Reports no additional complaints, Denies change in vision and Denies other visual disturbances Card Denies chest pain at rest, Denies chest pain with activity, Denies edema, Denies irregular heart rhythm, Denies claudication, Denies dyspnea, Denies dyspnea on exertion, Denies orthopnea, Denies paroxysmal nocturnal dyspnea and Denies slow heart rate Resp Denies cough, Denies dyspnea and Denies dyspnea on exertion GI Denies abdominal pain, Denies change in bowel habits, Denies excessive flatus, Denies nausea and Denies vomiting Denies urinary incontinence, Denies urinary hesitancy and Denies urinary urgency Musc Denies abnormal gait, Denies atrophy, Denies deformity and Denies limited range of motion Skin/Breast Denies bleeding lesions, Denies changing lesions and Denies rash Neuro Denies abnormal gait and Denies lack of coordination Physical exam (Primary Care) Vital Signs: Last Vital Signs BP 120/68 06/29/23 08:28 BMI result Body Mass Index 30.3 Tobacco/Smoking Status: Tobacco use Status Tobacco use date assessed 06/29/23 06/29/23 08:38 Patient Tobacco Use Status Never used Tobacco 06/29/23 08:38 e-Cigarette/Vaping Use Never Used 06/29/23 08:38 PHQ-9: PHQ-9 Score PHQ-9: Total score 0 06/29/23 08:38 Depression Screening Interpretation: Negative Thrive Assessment: Date of Thrive Assessment Date Thrive assessed 06/29/23 06/29/23 08:38 Currently or been in a relationship where the following occur: no concerns reported Const Orientation/consciousness: patient oriented x3 HENMT Head: Yes normal to inspection, Yes normocephalic and Yes atraumatic Ears: external ears normal Eyes General: appearance normal, both eyes and all related structures Eyelids: Yes eyelids normal Conjunctivae: conjunctivae normal Neck Neck: Yes normal visual inspection and Yes supple Resp Effort & Inspection: normal respiratory effort Auscultation: clear to auscultation bilaterally Cardio Jugular venous distension: no JVD Rate: regular rate Rhythm: regular rhythm Heart sounds: S1 normal heart sound present and S2 normal heart sound present GI Inspection: Yes normal to inspection Palpation (GI): Soft to palpation and nontender Auscultation: normal bowel sounds Rectal Exam - Female: External hemorrhoid(s) present Skin General skin exam: no rashes or lesions noted Neuro General: patient oriented x3 and no focal motor deficits Extrem General: Yes full ROM Psych Appearance: grossly normal Assessment and Plan Assessment & Plan (1) Physical exam: Code(s): Z00.00 - Encounter for general adult medical examination without abnormal findings Plan: Repeat in a year. Orders: Orders XR DEXA axial skeleton Today M85.80 - Other specified disorders of bone density and structure, unspecified site, N95.9 - Unspecified menopausal and perimenopausal disorder Lipid Panel Today E78.2 - Mixed hyperlipidemia, E78.5 - Hyperlipidemia, unspecified Comprehensive [place]. Panel Fast Today Z00.00 - Encounter for general adult medical examination without abnormal findings Referrals General Surgery Referral K64.9 - Unspecified hemorrhoids Vascular Surgery Referral R09.89 - Other specified symptoms and signs involving the circulatory and respiratory systems Coding Level of Care Code Est Pt Prev Care >65y(61773) Diagnoses Physical exam Z00.00 Additional Codes SUSI-7 Assessment Billing - SUSI-7 Assessment Tool: SUSI-7 Assessment 01642 ([id number]) Time Spent (min) 32
[2023-06-29 08:28] VITALS: BP 120/68; BMI 30.3
== END 2023-06-29 08:59 | disposition home or self-care (01) ==
PROVIDERS: Visit Provider Internal Medicine
DX: Z00.00 Encounter for general adult medical examination without abnormal findings (principal)
CPT/HCPCS: 99397

== ENCOUNTER 2023-06-29 09:16 | Outpatient (REF) | payer OTHER, SELFPAY ==
[2023-06-29 10:37] LABS: Appearance Urine Cloudy; Color Urine Dark Yellow; Glucose Urine UA Negative (Negative); Leukocyte Esterase Urine Small (1+) (Negative); Nitrite Urine Negative (Negative); PH 5.5 (5.0-9.0); Specific Gravity - Urine 1.025 (1.005-1.025); UMIC TRIGGER UACC YES; Urine Blood Negative (Negative); Urine Ketones Negative (Negative); Urine Protein Negative (Neg-Trace)
[2023-06-29 10:53] LABS: Bacteria Urine Trace (None Seen); Hyaline Casts Urine 0-2 /LPF (0-2); RBC Urine 0-2 /HPF (0-2); UACC Culture Trigger YES
[2023-06-29 11:42] LABS: Alanine Aminotransferase 15 U/L (0-31); Albumin Level 3.9 g/dL (3.5-5.0); Alkaline Phosphatase 100 U/L (39-117); Anion Gap 13 (12-20); Aspartate Amino Transferase 19 U/L (5-31); Bilirubin Total 0.5 mg/dL (0.0-1.0); Blood Urea Nitrogen 17 mg/dL (9-16); Calcium 9.3 mg/dL (8.4-10.2); Carbon Dioxide 26 mmol/L (22-29); Chloride 107 mmol/L (96-108); Cholesterol 178 mg/dL (<200); Estimated Glomerular Filt Rate > 60; Glucose Fasting 104 mg/dL (60-99); HDL Cholesterol 47 mg/dL (>40); LDL Cholesterol Calculated 94 mg/dL (<100); Potassium 3.7 mmol/L (3.3-5.1); Sodium 142 mmol/L (135-145); Total Protein 7.3 g/dL (6.5-8.0); Triglycerides 189 mg/dL (<150)
== END 2023-06-29 09:17 | disposition home or self-care (01) ==
LOC: HO.LAB 09:16
PROVIDERS: PCP Internal Medicine; Visit Provider Internal Medicine
DX: Z00.00 Encounter for general adult medical examination without abnormal findings (principal); E78.2 Mixed hyperlipidemia; R30.0 Dysuria
CPT/HCPCS: 36415; 80053; 80061; 81001; 87086

== ENCOUNTER 2023-07-09 08:53 | Outpatient (AMB) | payer OTHER, SELFPAY ==
--- NOTE | 2023-07-09 09:00 | MHC.OFFVIS ---
Intake Vital Signs 07/09/23 09:08 Height 4 ft 9 in Weight 141 lb BMI 30.5 BP 124/60 Blood Pressure Location Lt brachial Position Sitting Pulse 82 Intake Visit Reasons: Hemorrhoids Intake Note: Patient referred by PCP Dr. Gustavo Mansfield for external hemorrhoids. Patient c/o: starting to become bothersome. Constipation under control with colace, miralax. Patient not sure when last colonoscopy. 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 Accompanied by: daughter Mattie Resendez Allergies apple [Apple] Allergy (Severe, Verified 07/09/23 09:02) THROAT SWELLING pear [Pear] Allergy (Severe, Verified 07/09/23 09:02) THROAT SWELLING banana [BANANA] Allergy (Intermediate, Verified 07/09/23 09:02) HIVES,THROAT SWELLING latex Allergy (Intermediate, Verified 07/09/23 09:02) Rash nystatin Allergy (Intermediate, Verified 07/09/23 09:02) swelling nuts Allergy (Severe, Uncoded 07/09/23 09:02) anaphylaxis fruits Allergy (Intermediate, Uncoded 07/09/23 09:02) anaphylaxis Medication List - Last Reconciled 07/09/23 by Idris Carey MD acetaminophen ER 650 mg PO Q8H PRN 30 days calcium carbonate 1,200 mg (2 x 600 mg calcium (1,500 mg)) PO DAILY 90 days cetirizine 10 mg PO DAILY PRN 90 days cholecalciferol (vitamin D3) 25 mcg PO DAILY 90 days clotrimazole-betamethasone 1-0.05 % 1 appl topical BID diclofenac sodium 1% 2 grams topical QID 30 days docusate sodium (Colace) 200 mg (2 x 100 mg) PO BEDTIME epinephrine (EpiPen) 0.3 mg (0.3 mL) IM Q4H PRN 30 days magnesium 250 mg PO DAILY 90 days melatonin 5 mg PO BEDTIME PRN 90 days mirabegron ER (Myrbetriq) 25 mg PO DAILY 90 days ohkzevjl-cgrigmc-dqao-lutein 1 tab PO .once a day 90 days nystatin 1 appl topical DAILY 2 weeks oxyquinoline-sod.lauryl sulfat 0.025-0.01 % 1 ea vaginal 2XW 30 days polyethylene glycol 3350 (Miralax) 17 grams PO DAILY HPI Hemorrhoids HPI Details 78F referred for hemorrhoids. She says she has known that she has hemorrhoids for years now. However, the past few weeks, she felt that her hemorrhoids seemed to be bigger. She denies any bleeding, pain or swelling but states that these can be uncomfortable. She admits to being chronically constipated. She was seen recently by her primary care physician and was referred to me. [facility] Medical History (Updated 07/09/23 @ 09:36 by Idris Carey MD) Internal and external thrombosed hemorrhoids Postmenopausal Physical exam Headache Low back pain Seasonal allergies Abdominal gas pain Right shoulder pain Left hip pain Right elbow pain Hypovitaminosis D Chronic constipation Surgical History History of tooth extraction Hx of colonoscopy Hx of cataract extraction Family History Father Throat cancer Mother Cancer of unknown origin Social History Household Members Other:: alone Housing: Apartment Alcohol intake: current Alcohol intake frequency: holidays/special occasions only Alcohol type: wine and hard liquor Patient Tobacco Use Status: Never used Tobacco e-Cigarette/Vaping Use: Never Used Second Hand Smoke Exposure: No service: No Current occupational status: disabled Cognitive needs: No Hearing needs: Yes Vision needs: Yes Review of Systems Const Denies chills and Denies fever(s) Card Denies chest pain, Denies dyspnea and Denies dyspnea on exertion Resp Denies cough, Denies dyspnea and Denies dyspnea on exertion GI Denies hematochezia, Denies change in bowel habits and Reports constipation Denies hematuria Musc Denies back pain and Denies limited range of motion Neuro Denies focal weakness and Denies convulsions Psych Denies depression and Denies mood swings Physical Exam Vital Signs: Last Vital Signs Pulse 82 07/09/23 09:08 BP 124/60 07/09/23 09:08 BMI result Body Mass Index 30.5 Const General: comfortable and no acute distress Orientation/consciousness: patient oriented x3 Neck Neck: Yes no lymphadenopathy Resp Auscultation: clear to auscultation bilaterally Cardio Rhythm: regular rhythm GI Other: Rectal exam shows external hemorrhoids, left and right, non bulky but moderate-sized, 1 external hemorrhoidal column on the left seems to have recent thrombosis, nontender, anoscopy done Palpation (GI): Soft to palpation, nontender and no guarding Neuro General: patient oriented x3 Office Procedures Anoscopy She was in jacknife position. The anoscope was gently inserted. A full exam of the anal canal was done. She had mixed internal and external hemorrhoids on the left and right. One external hemorrhoid appears rto have a recent thrombosis. There was no fissure or ulcer; no induration or bleeding or any lesion seen [id number] Assessment & Plan Assessment & Plan (1) Internal and external thrombosed hemorrhoids: Code(s): K64.5 - Perianal venous thrombosis; K64.8 - Other hemorrhoids Plan: She has internal and external hemorrhoids. One of these appears to have been recently thrombosed. I did offer her the option of hemorrhoidectomy. I explained the technique of the procedure as well as the risks, benefits and alternatives. She says she is not interested in surgery. She does not feel the hemorrhoids are significantly symptomatic. I will prescibe her Colace and Metamucil for constipation. She is welcome to [facility] as needed. Coding Level of Care Code New Pt Level 3 (70417) Diagnoses Internal and external thrombosed hemorrhoids K64.5; K64.8 CPT Codes Details - CPT: 11790-Hnxkevkt ([id number])
[2023-07-09 09:08] VITALS: BP 124/60; PULSE 82; BMI 30.5
== END 2023-07-09 09:14 | disposition home or self-care (01) ==
PROVIDERS: PCP Internal Medicine; Referring Provider Internal Medicine; Visit Provider Surgery
DX: K64.5 Perianal venous thrombosis (principal); K64.8 Other hemorrhoids
CPT/HCPCS: 46600; 99203

== ENCOUNTER → 2023-07-09 08:53 | Outpatient (BNVA) | payer OTHER, SELFPAY | PROVIDERS: PCP Internal Medicine; Referring Provider Internal Medicine; Visit Provider Surgery | DX: K64.5 Perianal venous thrombosis (principal); K64.8 Other hemorrhoids | CPT/HCPCS: 46600; 99202 ==

== ENCOUNTER 2023-08-20 09:09 | Outpatient (AMB) | payer OTHER, MEDICAID, SELFPAY ==
--- NOTE | 2023-08-20 09:10 | A.OFFVIS_ITS ---
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 States she has swelling and cramping in both her legs. States she had a nurse come to her home who checked her pulses in her feet. States when they were touching the heels of her feet she did not feel anything. Dr Chen's notes states the patient had an ROMAIN of 0.71. She is not diabetic and is not a smoker. Accompanied by: Self / Same As Patient Allergies apple [Apple] Allergy (Severe, Verified 08/20/23 09:18) THROAT SWELLING pear [Pear] Allergy (Severe, Verified 08/20/23 09:18) THROAT SWELLING banana [BANANA] Allergy (Intermediate, Verified 08/20/23 09:18) HIVES,THROAT SWELLING latex Allergy (Intermediate, Verified 08/20/23 09:18) Rash nystatin Allergy (Intermediate, Verified 08/20/23 09:18) swelling nuts Allergy (Severe, Uncoded 07/09/23 09:02) anaphylaxis fruits Allergy (Intermediate, Uncoded 07/09/23 09:02) anaphylaxis HPI HPI RUG CLEANER HAND Claudication: Details: Very pleasant 78-year-old female presents for evaluation regarding peripheral vascular disease. She has been complaining of lower extremity pain and it has been more of a persistent pain. It is not related to ambulation. She also does have complaints of back pain and lower extremity pain that has been persistent throughout the day. She now presents for evaluation. Of note she has had an insurance evaluation which was performed and demonstrated an ankle-brachial index of 0.71. She was concerned about that and now presents to us for evaluation. Of note she has a nonsmoker nondiabetic. [facility] Medical History Internal and external thrombosed hemorrhoids Postmenopausal Physical exam Headache Low back pain Seasonal allergies Abdominal gas pain Right shoulder pain Left hip pain Right elbow pain Hypovitaminosis D Chronic constipation Surgical History History of tooth extraction Hx of colonoscopy Hx of cataract extraction Family History Father Throat cancer Mother Cancer of unknown origin Social History Household Members Other:: alone Housing: Apartment Alcohol intake: current Alcohol intake frequency: holidays/special occasions only Alcohol type: wine and hard liquor Patient Tobacco Use Status: Never used Tobacco e-Cigarette/Vaping Use: Never Used Second Hand Smoke Exposure: No service: No Current occupational status: disabled Cognitive needs: No Hearing needs: Yes Vision needs: Yes Review of Systems Const All systems reviewed & are unremarkable except as noted in HPI and below Reports no additional complaints ENT Reports Normal hearing present Card Denies chest pain, Denies chest pain at rest, Denies chest pain with activity and Denies pedal edema Resp Denies cough GI Denies abdominal pain Musc Denies abnormal gait, Denies muscle cramps and Denies radiating pain into limb Skin/Breast Denies skin ulcer and Denies wounds Neuro Reports Normal hearing present and Denies abnormal gait Psych Reports no additional complaints Physical Exam Const General: cooperative, healthy appearing and comfortable Orientation/consciousness: oriented to person, oriented to place and oriented to time HEENT Head: Yes normal to inspection Neck Neck: Yes normal visual inspection Carotids: no bruits Chest Chest palpation & inspection: normal inspection of the chest Resp Effort & Inspection: normal respiratory effort and able to speak in complete sentences Auscultation: clear to auscultation bilaterally, no crackles, no rales, no rhonchi and no wheezes Cardio Other: Palpable bilateral dorsalis pedis pulse Rate: regular rate Rhythm: regular rhythm Heart sounds: S1 normal heart sound present and S2 normal heart sound present Bruits: no carotid bruits Peripheral pulses: Peripheral pulses 2+ throughout GI Inspection: Yes normal to inspection Skin Wounds: no wounds Hair: normal Neuro General: oriented to person, oriented to place and oriented to time Cranial nerves: Yes CN's II-XII intact bilaterally and Yes Normal hearing present Cognition (Neuro): normal cognition Motor exam (neuro): 5/5 motor strength present throughout Extrem Other: venous exam: No significant superficial varicosities or spider telangiectasias, minimal edema General: No clubbing, No cyanosis and No edema Psych Appearance: grossly normal Mental Status: mental status grossly normal Speech and movement: Normal speech and movement present Assessment & Plan Assessment & Plan (1) PAD (peripheral artery disease): Code(s): I73.9 - Peripheral vascular disease, unspecified Category: Medical Plan: In short patient has lower extremity pain. Unclear what the true etiology of this is. She does have palpable arterial pulses but with this ankle-brachial index I would like to reconfirm this. I have taken the liberty of ordering noninvasive testing. 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 I do believe there is a neurogenic component of this. We will ensure that this is negative from a vascular standpoint and if so may benefit from a pain management evaluation. Thank you for allowing us to assist in her care. Orders: Orders US arterial duplex LE 1 Week I73.9 - Peripheral vascular disease, unspecified Coding Level of Care Code New Pt Level 4 (37814) Diagnoses PAD (peripheral artery disease) I73.9
== END 2023-08-20 09:37 | disposition home or self-care (01) ==
PROVIDERS: PCP Internal Medicine; Visit Provider Surgery Vascular Surgery
DX: I73.9 Peripheral vascular disease, unspecified (principal)
CPT/HCPCS: 99203; 99213

== ENCOUNTER → 2023-08-20 09:09 | Outpatient (BNVA) | payer OTHER, MEDICAID, SELFPAY | PROVIDERS: PCP Internal Medicine; Visit Provider Surgery Vascular Surgery | DX: I73.9 Peripheral vascular disease, unspecified (principal) | CPT/HCPCS: 99202 ==

== ENCOUNTER 2023-09-03 10:43 | Outpatient (REF) | payer OTHER, SELFPAY ==
--- NOTE | ~2023-09-03 | US_ITS ---
EXAMINATION: NONINVASIVE ASSESSMENT OF THE ARTERIES OF BOTH LOWER EXTREMITIES INCLUDING PVR EXAM AND BILATERAL LOWER EXTREMITY DUPLEX CLINICAL INFORMATION: Peripheral vascular disease COMPARISON: None TECHNIQUE: Ankle pulse volume recordings, ankle pressure measurements and ankle brachial indices were obtained of the lower extremity arterial system bilaterally in addition to duplex Doppler techniques with wave form analysis and measurement of velocities in the common femoral, profunda femoral, superficial femoral, popliteal, tibial and peroneal arteries. The study was performed only at rest. FINDINGS: RIGHT LEG 1. Right Ankle-Brachial Index: 1.15 (higher of the DP/PT) >0.97-1.25 = normal - no significant arterial disease 0.75-0.96 = mild peripheral arterial disease 0.5-0.74 = moderate peripheral arterial disease <0.50 = severe peripheral arterial disease <0.30 = critical arterial disease 2. Segmental Pressures (mmHg): Brachial: 124 Ankle: PT 143, DP 142 3. PVR Waveforms: Ankle: Unremarkable 4. Direct Duplex: Common femoral artery: 108.7 cm/s, Multiphasic Profunda femoris artery: 58.8 cm/s, Multiphasic Superficial femoral artery (proximal): 94.4 cm/s, Multiphasic Superficial femoral artery (mid): 90.8 cm/s, Multiphasic Superficial femoral artery (distal): 91.4 cm/s, Multiphasic Proximal Popliteal artery: 64.8 cm/s, Multiphasic Distal popliteal artery: 82 cm/s, Multiphasic Mid posterior tibial artery: 110.1 cm/s, Multiphasic. Waveform distally is monophasic with peak systolic velocity 19.4 cm/s. Peroneal artery: 41.3 cm/s, Multiphasic LEFT LE. Left Ankle-Brachial Index: 1.08 (higher of the DP/PT) >0.97-1.25 = normal - no significant arterial disease 0.75-0.96 = mild peripheral arterial disease 0.5-0.74 = moderate peripheral arterial disease <0.50 = severe peripheral arterial disease <0.30 = critical arterial disease 2. Segmental Pressures: Brachial: 113 Ankle: PT 134, DP 134 3. PVR Waveforms: Ankle: Unremarkable 4. Direct Duplex: Common femoral artery: 118.6 cm/s, Multiphasic Profunda femoris artery: 54.3 cm/s, Multiphasic Superficial femoral artery (proximal): 83.6 cm/s, Multiphasic Superficial femoral artery (mid): 93.1 cm/s, Multiphasic Superficial femoral artery (distal): 88 cm/s, Multiphasic Proximal Popliteal artery: 67 cm/s, Multiphasic Distal popliteal artery: 70.3 cm/s, Multiphasic Mid posterior tibial artery: The vessels quite small and difficult to obtain Doppler waveforms. At the proximal aspect of the posterior tibial artery peak systolic velocity is 16.9 cm/s and the waveform is multiphasic. At the midportion of the vessel the waveform becomes monophasic. There is a collateral vessel at this level with a multiphasic waveform. Peroneal artery: 30.3 cm/s, Multiphasic US/US arterial duplex LE BI IMPRESSION: Ankle-brachial index is 1.15 on the right. There is monophasic waveform within the distal aspect of the right posterior tibial artery, though otherwise there is normal multiphasic flow throughout the lower extremity. Ankle-brachial index is 1.08 on the left. On ultrasound evaluation of the posterior tibial artery is somewhat limited and there are monophasic waveforms distally, otherwise there is normal multiphasic flow throughout the lower extremity.
== END 2023-09-03 10:44 | disposition home or self-care (01) ==
LOC: HO.US 10:43
PROVIDERS: PCP Internal Medicine; Visit Provider Surgery Vascular Surgery
DX: I73.9 Peripheral vascular disease, unspecified (principal)
CPT/HCPCS: 93923; 93925

== ENCOUNTER 2023-09-29 09:48 | Outpatient (AMB) | payer OTHER, SELFPAY ==
--- NOTE | 2023-09-29 09:56 | MHC.OFFVIS ---
Intake Visit Reasons: f/u s/p ART US BLE 09/03/23 Intake Note: Patient presents for follow up arterial US performed on 09/03/23. Patient states she is experiencing some tingling in her feet , especially at night. Patient also adeline her legs have been getting tired. Accompanied by: Self / Same As Patient Allergies apple [Apple] Allergy (Severe, Verified 09/29/23 09:58) THROAT SWELLING pear [Pear] Allergy (Severe, Verified 09/29/23 09:58) THROAT SWELLING banana [BANANA] Allergy (Intermediate, Verified 09/29/23 09:58) HIVES,THROAT SWELLING latex Allergy (Intermediate, Verified 09/29/23 09:58) Rash nystatin Allergy (Intermediate, Verified 09/29/23 09:58) swelling nuts Allergy (Severe, Uncoded 07/09/23 09:02) anaphylaxis fruits Allergy (Intermediate, Uncoded 07/09/23 09:02) anaphylaxis HPI HPI f/u s/p ART US BLE 09/03/23: Details: Very pleasant 78-year-old female presents for follow-up regarding peripheral vascular disease. Workup began after a insurance and evaluation demonstrated an ROMAIN of 0.71. She has been complaining of lower extremity pain but she reports that it may be related to her back issues. She is a nonsmoker nondiabetic. She now presents for follow-up with noninvasive testing. [facility] Medical History Internal and external thrombosed hemorrhoids Postmenopausal Physical exam Headache Low back pain Seasonal allergies Abdominal gas pain Right shoulder pain Left hip pain Right elbow pain Hypovitaminosis D Chronic constipation Surgical History History of tooth extraction Hx of colonoscopy Hx of cataract extraction Family History Father Throat cancer Mother Cancer of unknown origin Social History Household Members Other:: alone Housing: Apartment Alcohol intake: current Alcohol intake frequency: holidays/special occasions only Alcohol type: wine and hard liquor Patient Tobacco Use Status: Never used Tobacco e-Cigarette/Vaping Use: Never Used Second Hand Smoke Exposure: No service: No Current occupational status: disabled Cognitive needs: No Hearing needs: Yes Vision needs: Yes Review of Systems Const All systems reviewed & are unremarkable except as noted in HPI and below Reports no additional complaints ENT Reports Normal hearing present Card Denies chest pain, Denies chest pain at rest, Denies chest pain with activity and Denies pedal edema Resp Denies cough GI Denies abdominal pain Musc Denies abnormal gait, Denies muscle cramps and Denies radiating pain into limb Skin/Breast Denies skin ulcer and Denies wounds Neuro Reports Normal hearing present and Denies abnormal gait Psych Reports no additional complaints Physical Exam Const General: cooperative, healthy appearing and comfortable Orientation/consciousness: oriented to person, oriented to place and oriented to time HEENT Head: Yes normal to inspection Neck Neck: Yes normal visual inspection Carotids: no bruits Chest Chest palpation & inspection: normal inspection of the chest Resp Effort & Inspection: normal respiratory effort and able to speak in complete sentences Auscultation: clear to auscultation bilaterally, no crackles, no rales, no rhonchi and no wheezes Cardio Other: Bilateral palpable dorsalis pedis pulse Rate: regular rate Rhythm: regular rhythm Heart sounds: S1 normal heart sound present and S2 normal heart sound present Bruits: no carotid bruits Peripheral pulses: Peripheral pulses 2+ throughout GI Inspection: Yes normal to inspection Skin Wounds: no wounds Hair: normal Neuro General: oriented to person, oriented to place and oriented to time Cranial nerves: Yes CN's II-XII intact bilaterally and Yes Normal hearing present Cognition (Neuro): normal cognition Motor exam (neuro): 5/5 motor strength present throughout Extrem Other: venous exam: No significant superficial varicosities or spider telangiectasias, minimal edema General: No clubbing, No cyanosis and No edema Psych Appearance: grossly normal Mental Status: mental status grossly normal Speech and movement: Normal speech and movement present Results Reviewed Results Reviewed: Noninvasive arterial testing dated 09/03/2023 demonstrates ROMAIN on the right of 1.15 and on the left of 1.08. Written report and images were reviewed. Assessment & Plan Assessment & Plan (1) PAD (peripheral artery disease): Code(s): I73.9 - Peripheral vascular disease, unspecified Category: Medical Plan: In short patient has normal arterial status. She does have palpable pulses and arterial testing was within normal limits. I do believe that insurance testing was a bit of an over read. We did discuss routine risk factor modification and she will follow up with us on an as-needed basis. Thank you for allowing us to assist in her care Coding Level of Care Code Est Pt Level 4 (34961) Diagnoses PAD (peripheral artery disease) I73.9
== END 2023-09-29 10:19 | disposition home or self-care (01) ==
PROVIDERS: PCP Internal Medicine; Visit Provider Surgery Vascular Surgery
DX: I73.9 Peripheral vascular disease, unspecified (principal)
CPT/HCPCS: 99213

== ENCOUNTER → 2023-09-29 09:48 | Outpatient (BNVA) | payer OTHER, SELFPAY | PROVIDERS: PCP Internal Medicine; Visit Provider Surgery Vascular Surgery | DX: I73.9 Peripheral vascular disease, unspecified (principal) | CPT/HCPCS: 99212 ==

== ENCOUNTER 2023-11-04 08:00 | Outpatient (REF) | payer OTHER, SELFPAY | END 2023-11-04 08:01 | disposition home or self-care (01) | LOC: HO.SH 08:00 | PROVIDERS: Visit Provider Internal Medicine | DX: Z01.118 Encounter for examination of ears and hearing with other abnormal findings (principal); H90.3 Sensorineural hearing loss, bilateral | CPT/HCPCS: 92552; 92556 ==

== ENCOUNTER 2023-11-04 08:48 | Outpatient (AMB) | payer OTHER, SELFPAY ==
[2023-11-04 08:49] VITALS: BP 126/70; BMI 29.6
--- NOTE | 2023-11-04 08:49 | A.OFFPC_ITS ---
Vital Signs 11/04/23 08:49 Height 4 ft 9 in Weight 137 lb BMI 29.6 BP 126/70 Blood Pressure Location Lt brachial Position Sitting Intake Visit Reasons: pain left leg Intake Note: Patient here c/o left side abdominal/ flank pain, left leg pain Epic Willow Analyst Required: No Accompanied by: Self / Same As Patient Allergies apple [Apple] Allergy (Severe, Verified 11/04/23 08:59) THROAT SWELLING pear [Pear] Allergy (Severe, Verified 11/04/23 08:59) THROAT SWELLING banana [BANANA] Allergy (Intermediate, Verified 11/04/23 08:59) HIVES,THROAT SWELLING latex Allergy (Intermediate, Verified 11/04/23 08:59) Rash nystatin Allergy (Intermediate, Verified 11/04/23 08:59) swelling nuts Allergy (Severe, Uncoded 11/04/23 08:59) anaphylaxis fruits Allergy (Intermediate, Uncoded 11/04/23 08:59) anaphylaxis Medication List - Last Reconciled 11/04/23 by Chela Mansfield MD acetaminophen ER 650 mg PO Q8H PRN 30 days calcium carbonate 1,200 mg (2 x 600 mg calcium (1,500 mg)) PO DAILY 90 days cetirizine 10 mg PO DAILY PRN 90 days cholecalciferol (vitamin D3) 25 mcg PO DAILY 90 days clotrimazole-betamethasone 1-0.05 % 1 appl topical BID diclofenac sodium 1% 2 grams topical QID 30 days docusate sodium (Colace) 200 mg (2 x 100 mg) PO BEDTIME epinephrine (EpiPen) 0.3 mg (0.3 mL) IM Q4H PRN 30 days magnesium 250 mg PO DAILY 90 days melatonin 5 mg PO BEDTIME PRN 90 days mirabegron ER (Myrbetriq) 25 mg PO DAILY 90 days xtvucgwb-kbgitpk-ffir-lutein 1 tab PO .once a day 90 days nirmatrelvir-ritonavir 300 mg (150 mg x 2)-100 mg (Paxlovid) 3 ea PO PER PKG DIR 5 days nystatin 1 appl topical DAILY 2 weeks oxyquinoline-sod.lauryl sulfat 0.025-0.01 % 1 ea vaginal 2XW 30 days polyethylene glycol 3350 (Miralax) 17 grams PO DAILY psyllium husk (Metamucil) 1 tbsp PO DAILY Tobacco use date assessed: 06/29/23 Fall risk assessment: No Falls in past year Last assessed Fall Risk: 11/04/23 Dental Screening Dental Screen Date: 06/29/23 HPI HPI Comments History of Present Illness Details This is a 78 year old female with chronic constipation and low vitamin D that comes today complaining of left leg pain that started 2 weeks ago while she was walking. The pain is still present. She also has left sciatica and would like referral to pain management. Constipation stable with medications. On Vitamin D supplements for his low vitamin D. [facility] Medical History (Updated 11/04/23 @ 09:08 by Chela Mansfield MD) Internal and external thrombosed hemorrhoids Postmenopausal Physical exam Headache Low back pain Seasonal allergies Abdominal gas pain Right shoulder pain Left hip pain Right elbow pain Hypovitaminosis D Chronic constipation Surgical History History of tooth extraction Hx of colonoscopy Hx of cataract extraction Family History Father Throat cancer Mother Cancer of unknown origin Social History Household Members Other:: alone Housing: Apartment Alcohol intake: current Alcohol intake frequency: holidays/special occasions only Alcohol type: wine and hard liquor Patient Tobacco Use Status: Never used Tobacco e-Cigarette/Vaping Use: Never Used Second Hand Smoke Exposure: No service: No Current occupational status: disabled Cognitive needs: No Hearing needs: Yes Vision needs: Yes Questionnaire Thrive Questionnaire Date Thrive assessed: 06/29/23 SUSI-7 AMB Questionnaire SUSI-7 Date SUSI - 7 assessed: 06/29/23 Source: Developed by Drs. Jeronimo De Leon, Joy Dominguez, Adonis Seth and colleagues, with an educational kristal from [employer]. Review of Systems Const All systems reviewed & are unremarkable except as noted in HPI and below Card Denies chest pain at rest, Denies chest pain with activity, Denies edema, Denies irregular heart rhythm, Denies claudication, Denies dyspnea, Denies dyspnea on exertion, Denies orthopnea, Denies paroxysmal nocturnal dyspnea and Denies slow heart rate Resp Denies cough, Denies dyspnea and Denies dyspnea on exertion GI Denies abdominal pain, Denies change in bowel habits, Denies excessive flatus, Denies nausea and Denies vomiting Denies urinary incontinence, Denies urinary hesitancy and Denies urinary urgency Neuro Denies behavioral changes and Denies lack of coordination Psych Denies behavioral changes Physical exam (Primary Care) Vital Signs: Last Vital Signs BP 126/70 11/04/23 08:49 BMI result Body Mass Index 29.6 BMI Assessment/Plan discussion: High BMI High, discussed plan: lifestyle, weight reduction, dietary and physical activity Tobacco/Smoking Status: Tobacco use Status Tobacco use date assessed 06/29/23 11/04/23 08:53 Patient Tobacco Use Status Never used Tobacco 11/04/23 08:53 e-Cigarette/Vaping Use Never Used 11/04/23 08:53 Thrive Assessment: Date of Thrive Assessment Date Thrive assessed 06/29/23 11/04/23 08:53 Resp Effort & Inspection: normal respiratory effort Auscultation: clear to auscultation bilaterally Cardio Jugular venous distension: no JVD Rate: regular rate Rhythm: regular rhythm Heart sounds: S1 normal heart sound present and S2 normal heart sound present Back/Spine/Pelvis Thoracic/Lumbar Spine: straight leg raise positive left at 60 degrees Extrem General: Yes full ROM Assessment and Plan Assessment & Plan (1) Left sided sciatica: Code(s): M54.32 - Sciatica, left side Plan: Referred to pain management. (2) Left leg pain: Code(s): M79.605 - Pain in left leg Plan: Ultrasound ordered to rule out DVT. (3) Chronic constipation: Comment: Pleasant 75-year-old female follows up after recent colonoscopy no polyps. She is very happy. Reinforced importance of High-fiber diet, as well as consistent bowel regimen colace q.h.s., MiraLax We reviewed procedure report avoid straining. hemorrhoidal cream that has been effective. Asymptomatic screening colonoscopy 10 years Encouraged to call questions or concerns Code(s): K59.09 - Other constipation Plan: Continue MiraLax as needed. (4) Hypovitaminosis D: Code(s): E55.9 - Vitamin D deficiency, unspecified Plan: Continue vitamin-D supplements. Orders: Orders US venous duplex LE LT Today M79.605 - Pain in left leg Referrals Pain Management Referral M54.32 - Sciatica, left side Medications: New aspirin 81 mg PO DAILY 90 tabs 0RF 90 days Refilled nirmatrelvir-ritonavir 300 mg (150 mg x 2)-100 mg (Paxlovid) 3 ea PO PER PKG DIR 30 ea 0RF 5 days Coding Level of Care Code Est Pt Level 4 (71071) Complex EM visit Add On G2211 Diagnoses Left sided sciatica M54.32 Left leg pain M79.605 Chronic constipation K59.09 Hypovitaminosis D E55.9 Time Spent (min) 22
== END 2023-11-04 09:10 | disposition home or self-care (01) ==
PROVIDERS: PCP Internal Medicine; Visit Provider Internal Medicine
DX: M54.32 Sciatica, left side (principal); M79.605 Pain in left leg; K59.09 Other constipation; E55.9 Vitamin D deficiency, unspecified
CPT/HCPCS: 99214; G2211

== ENCOUNTER 2023-11-04 09:37 | Outpatient (REF) | payer OTHER, SELFPAY ==
--- NOTE | ~2023-11-04 | US_ITS ---
EXAMINATION: US VENOUS ULTRASOUND WITH DOPPLER LOWER EXTREMITY, LEFT CLINICAL INFORMATION: Left lower extremity pain. COMPARISON: None available. TECHNIQUE: Ultrasound of the deep veins is performed from the hip to the calf with compression sonography and color and pulse Doppler assessment. Spectral analysis with color-flow imaging is performed. FINDINGS: There is normal venous compression and respiratory variation and augmented flow. The visualized common femoral vein, superficial femoral vein, profunda femoral vein, popliteal vein, and the trifurcation region shows no evidence of deep venous thrombosis. If the patient's symptoms persist, followup ultrasound in 5 days 7 days might be of value to exclude proximal propagation from a non-visualized calf vein. Benign-appearing left groin lymph node measures 1.7 x 0.7 x 2.2 cm. US/US venous duplex LE LT IMPRESSION: No DVT demonstrated in the left lower extremity.
== END 2023-11-04 09:38 | disposition home or self-care (01) ==
LOC: HO.US 09:37
PROVIDERS: PCP Internal Medicine; Visit Provider Internal Medicine
DX: M79.605 Pain in left leg (principal)
CPT/HCPCS: 93971

== ENCOUNTER 2023-11-11 10:08 | Outpatient (AMB) | payer OTHER, SELFPAY ==
--- NOTE | 2023-11-11 10:12 | MHC.OFFVIS ---
Vital Signs 11/11/23 10:13 Height 4 ft 9 in Weight 137 lb BMI 29.6 BP 112/56 L Blood Pressure Location Rt brachial Position Sitting Pulse 82 Pulse Source Pulse Oximeter Pulse Oximetry (%) 97 Oxygen Delivery Method Room Air Intake Visit Reasons: Left Sciatica Allergies apple [Apple] Allergy (Severe, Verified 11/11/23 10:16) THROAT SWELLING pear [Pear] Allergy (Severe, Verified 11/11/23 10:16) THROAT SWELLING banana [BANANA] Allergy (Intermediate, Verified 11/11/23 10:16) HIVES,THROAT SWELLING latex Allergy (Intermediate, Verified 11/11/23 10:16) Rash nystatin Allergy (Intermediate, Verified 11/11/23 10:16) swelling nuts Allergy (Severe, Uncoded 11/11/23 10:16) anaphylaxis fruits Allergy (Intermediate, Uncoded 11/11/23 10:16) anaphylaxis Medication List - Last Reconciled 11/11/23 by Paris Serna acetaminophen ER 650 mg PO Q8H PRN 30 days aspirin 81 mg PO DAILY 90 days calcium carbonate 1,200 mg (2 x 600 mg calcium (1,500 mg)) PO DAILY 90 days cetirizine 10 mg PO DAILY PRN 90 days cholecalciferol (vitamin D3) 25 mcg PO DAILY 90 days clotrimazole-betamethasone 1-0.05 % 1 appl topical BID diclofenac sodium 1% 2 grams topical QID 30 days docusate sodium (Colace) 200 mg (2 x 100 mg) PO BEDTIME epinephrine (EpiPen) 0.3 mg (0.3 mL) IM Q4H PRN 30 days magnesium 250 mg PO DAILY 90 days melatonin 5 mg PO BEDTIME PRN 90 days mirabegron ER (Myrbetriq) 25 mg PO DAILY 90 days dkbxeznl-deijfeg-pbnp-lutein 1 tab PO .once a day 90 days nirmatrelvir-ritonavir 300 mg (150 mg x 2)-100 mg (Paxlovid) 3 ea PO PER PKG DIR 5 days nystatin 1 appl topical DAILY 2 weeks oxyquinoline-sod.lauryl sulfat 0.025-0.01 % 1 ea vaginal 2XW 30 days polyethylene glycol 3350 (Miralax) 17 grams PO DAILY psyllium husk (Metamucil) 1 tbsp PO DAILY HPI Comments Details: Jennifer is a very pleasant 78-year-old female who presents to the office today for evaluation and management of her chronic lower back pain Reports she has been suffering with this pain for many years. Denies injury, trauma, fall. Bilateral lower back pain with radiation down the left leg to the level of the foot Pain is worse with forward flexion. Exacerbated by activity, though she is unable to detail specific activities that worsen her pain Pain today is rated as an 8/10, constant. She has been taking Tylenol as prescribed by her primary care doctor also using topical nonsteroidal anti-inflammatory cream. Endorses some improvement with Tylenol but that is short lived and then the pain returns. No recent attempts at physical therapy, chiropractor, acupuncture, massage or injections. She had an x-ray December of 2022, results as per below. This was reviewed with the patient today Denies red flag symptoms including new loss of bowel, bladder or saddle anesthesia In terms of muscle damage condition is described as aching, throbbing, shooting Pain is negatively impacting patient's enjoyment of life, general activity, sleep, ability to perform activities of daily living Denies current use of alcohol, tobacco, nicotine or illicit substances. Denies implantable devices, pacemaker defibrillator Denies current use of anticoagulants PFSH Medical History Internal and external thrombosed hemorrhoids Postmenopausal Physical exam Headache Low back pain Seasonal allergies Abdominal gas pain Right shoulder pain Left hip pain Right elbow pain Hypovitaminosis D Chronic constipation Surgical History History of tooth extraction Hx of colonoscopy Hx of cataract extraction Family History Father Throat cancer Mother Cancer of unknown origin Social History Household Members Other:: alone Housing: Apartment Alcohol intake: current Alcohol intake frequency: holidays/special occasions only Alcohol type: wine and hard liquor Patient Tobacco Use Status: Never used Tobacco e-Cigarette/Vaping Use: Never Used Second Hand Smoke Exposure: No service: No Current occupational status: disabled Cognitive needs: No Hearing needs: Yes Vision needs: Yes Review of Systems Const All systems reviewed & are unremarkable except as noted in HPI and below Physical Exam Vital Signs: Last Vital Signs Pulse 82 11/11/23 10:13 BP 112/56 L 11/11/23 10:13 Pulse Ox 97 11/11/23 10:13 Oxygen Delivery Method Room Air 11/11/23 10:13 BMI result Body Mass Index 29.6 General: awake, alert, oriented. Answers questions appropriately. Fully engaged in examination. Skin: warm, dry, intact HEENT: Normocephalic. Hearing intact. Cardiac: External chest normal in appearance. Respiratory: No cough, audible wheezing or stridor. Abdomen: without gross distension. MS: No obvious swelling or deformities. Able to stand on bilateral tiptoes and bilateral heels.? Able to transition from sit to stand unassisted. Ambulates with bilaterally normal heel strike and toe off Limited range of motion, pain with flexion to 60 degrees, extension to 10 degrees Bilateral lower extremity strength 5/5 SLR positive on the left Negative footdrop, negative clonus Nontender over bilateral PSIS Tenderness to palpation over midline lumbar vertebrae and lumbar paraspinal muscles Facet loading positive Neurological: Oriented to person, place, time and situation. Thought process intact. No gait abnormalities appreciated. Psychiatric: Appropriate mood and affect. Good judgment and insight. Results Reviewed Results Reviewed: 12/24/2022 XR/XR lumbar spine 2-3V LUMBAR SPINE: There is normal lumbar lordosis. The vertebral heights, alignment and the disc heights are normal. There is no visible acute fracture, dislocation or lytic process seen. There is mild ventral spondylosis of the superior endplate L3 and L4 vertebra. No aggressive lytic or sclerotic process seen. SI joints are symmetrical and normal. KIDNEY, URETER AND BLADDER: No radiopaque calculi seen. The bowel gas pattern is nonspecific. No organomegaly. No gross bony abnormality. LEFT KNEE: There is mild loss of medial and patellofemoral compartment joint space. No loose bodies, joint effusion or bony erosive changes. No fracture or dislocation. IMPRESSION: 1. Unremarkable lumbar spine exam except for mild ventral spondylosis at L3 and L4 vertebra. No visible acute fracture, dislocation or lytic process seen. 2. Unremarkable left knee exam. 3. Unremarkable kidney, ureter and bladder. Assessment & Plan Assessment & Plan (1) Lumbar pain: Code(s): M54.50 - Low back pain, unspecified Category: Medical (2) Lumbar radiculopathy: Code(s): M54.16 - Radiculopathy, lumbar region Category: Medical Plan Jennifer is a very pleasant 78-year-old female who presented to the office today for evaluation management of her chronic lower back pain History, physical exam provocative testing consistent with lumbar spondylosis and lumbar radiculopathy Order placed for PT and treat MRI ordered to evaluate for neural compromise Continue with Tylenol as prescribed by PCP All questions and concerns were answered, patient agrees with the plan. Follow up after PT/MRI, sooner if needed Orders: Orders PT Evaluation and Treatment Today M54.50 - Low back pain, unspecified MR lumbar spine wo con Today M54.16 - Radiculopathy, lumbar region Coding Level of Care Code New Pt Level 4 (20088) Diagnoses Lumbar pain M54.50 Lumbar radiculopathy M54.16
[2023-11-11 10:13] VITALS: BP 112/56; PULSE 82; O2SAT 97; BMI 29.6
== END 2023-11-11 10:51 | disposition home or self-care (01) ==
PROVIDERS: PCP Internal Medicine; Visit Provider Registered Nurse Emergency
DX: M54.50 Low back pain, unspecified (principal); M54.16 Radiculopathy, lumbar region
CPT/HCPCS: 99203

== ENCOUNTER → 2023-11-11 10:08 | Outpatient (BNVA) | payer OTHER, SELFPAY | PROVIDERS: PCP Internal Medicine; Visit Provider Registered Nurse Emergency | DX: M54.50 Low back pain, unspecified (principal); M54.16 Radiculopathy, lumbar region | CPT/HCPCS: 99202 ==

== ENCOUNTER 2023-12-16 15:59 | Outpatient (REF) | payer OTHER, SELFPAY ==
--- NOTE | ~2023-12-16 | MR_ITS ---
EXAMINATION: MR LUMBAR SPINE WITHOUT CONTRAST CLINICAL INFORMATION: Lumbar radiculopathy. Bilateral lower extremity pain and numbness. COMPARISON: Lumbar spine radiographs 12/24/2022. TECHNIQUE: MRI of the lumbar spine was obtained using routine sequences without contrast. FINDINGS: Alignment is normal. Vertebral body heights are preserved. No acute bone marrow signal changes. There is disc desiccation at multiple levels without substantial loss of intervertebral disc height. The tip of the conus medullaris is located at L1. No mass effect on the conus. Visualized distal cord signal intensity is normal. At L1-L2 the annular contour is normal. No canal stenosis. No mass effect on the traversing or foraminal nerve root. At L2-L3 there is a bulging disc. Bilateral facet degenerative changes. No canal stenosis. No mass effect on the traversing or foraminal nerve roots. At L3-L4 there is a bulging disc. Bilateral facet degenerative change. No canal stenosis. No mass effect on the traversing or foraminal nerve roots. At L4-L5 there is a bulging disc. Bilateral facet degenerative change. Mild canal stenosis. Subarticular zone narrowing causes displacement and possible compression of the left traversing L5 nerve roots. No foraminal nerve root compression. At L5-S1 there is a slightly bulging disc. Bilateral facet degenerative changes. No mass effect on the traversing or foraminal nerve roots. Limited visualization of the retroperitoneal anatomy reveals no abnormal finding. Psoas and paraspinal muscle groups are symmetric. MR/MR lumbar spine wo con IMPRESSION: There is multilevel degenerative spondylosis of the lumbar spine. Mild canal stenosis at L4-L5. Subarticular zone narrowing at this level causes displacement and possible compression of the left traversing L5 nerve roots. Otherwise no substantial mass effect on the traversing or foraminal nerve roots elsewhere within the lumbar spine. Electronically signed by: Jeronimo Franco MD 12/31/2023 05:33 PM EDT RP
== END 2023-12-16 16:00 | disposition home or self-care (01) ==
LOC: HO.MRI 15:59
PROVIDERS: PCP Internal Medicine; Visit Provider Registered Nurse Emergency
DX: M54.16 Radiculopathy, lumbar region (principal)
CPT/HCPCS: 72148

== ENCOUNTER 2024-01-11 09:19 | Outpatient (AMB) | payer OTHER, SELFPAY ==
--- NOTE | 2024-01-11 09:51 | HO.SPINEOV ---
Intake Visit Reasons: Back pain Intake Note: Ms. Elvin Welch is here today c/o low back pain radiating down left hip, abdomen and leg. MRI done @ [facility]. Religion Instructor Required: Yes Allergies apple [Apple] Allergy (Severe, Verified 11/11/23 10:16) THROAT SWELLING pear [Pear] Allergy (Severe, Verified 11/11/23 10:16) THROAT SWELLING banana [BANANA] Allergy (Intermediate, Verified 11/11/23 10:16) HIVES,THROAT SWELLING latex Allergy (Intermediate, Verified 11/11/23 10:16) Rash nystatin Allergy (Intermediate, Verified 11/11/23 10:16) swelling nuts Allergy (Severe, Uncoded 11/11/23 10:16) anaphylaxis fruits Allergy (Intermediate, Uncoded 11/11/23 10:16) anaphylaxis Assessment & Plan Assessment & Plan (1) Lumbar spinal stenosis: Code(s): M48.061 - Spinal stenosis, lumbar region without neurogenic claudication Category: Medical Plan Dear colleague, Thank you for referring Jennifer to our office today. She is a pleasant 78-year-old female comes in today with a chief complaint of low back pain and intermittent shooting pains into her bilateral lower extremities. She states that her left lower extremity is worse than her right. When describing the shooting pain she states that it starts in her left hip, goes over her left lateral thigh, into the left anterior knee, and terminates near her left anterior calf. She reports that this has been ongoing for the last 10 years, but seems to have worsened over the course of the last year. She reports that this pain is worse when walking, and rarely occurs when sitting. She denies any burning/numbness/tingling associated with this pain. She reports that she is still fairly functional and is able to go out to the store, complete her grocery shopping, and walk unassisted. She does feel that her overall ability to ambulate is somewhat limited, and finds herself stopping to rest due to pain more often than she previously has. She has not attempted physical therapy, has not seen a chiropractor, has not attempted acupuncture, and has not had cortisone injections as of yet. She does take [id number] Tylenol / ibuprofen, and has attempted pain gels/creams. PMH: Peripheral artery disease, hemorrhoids, presbycusis, chronic constipation, impaired glucose tolerance, bilateral cataracts. Social hx: The patient does not smoke, reports no substance use. Medications: Metamucil, MiraLax, Myrbetriq, melatonin, magnesium, docusate, diclofenac gel, vitamin D3, cetirizine calcium carbonate, aspirin, Tylenol. Allergies: Apples, pears, bananas, latex, nystatin, nuts. Physical exam: The patient has 5/5 strength in her upper and lower extremities. She has no significant sensational deficits on exam. She is able to ambulate well and rises from a seated position with the assistance of her chair. (-) bilateral straight leg raise, (-) clonus, (-) Parsons's. Imaging review: MRI of the lumbar spine completed here at [facility] shows moderate bilateral foraminal stenosis at L4-5. Impression: Jennifer is a pleasant 78-year-old female who comes in today with a chief complaint of low back pain with intermittent shooting pains into her bilateral lower extremities, left worse than right. She reports this has been ongoing for the past 10 years and she has not attempted much conservative treatment for it. I would recommend she attempt a course of physical therapy and see if that is able to work out some of the mobility related issue she is currently having. Her next step after physical therapy would be to see someone from pain management to discuss the possibility of further conservative measures. Only if this were to significantly worsened to the point where she is having his sincerely difficult time with ambulation and needing extra support such as a shopping cart and/or walker/cane in order to ambulate with this become a neurosurgical issue requiring intervention. At this time I believe she should continue to pursue conservative measures. Thank you for allowing us to care for your patient. The total time spent with this visit with this patient was 45 minutes reviewing history, physical exam, MRI imaging review, and implementation of treatment plan or further diagnostic testing Ernesto Polanco MD,PhD [facility] Orders: Orders PT Evaluation and Treatment Today M48.061 - Spinal stenosis, lumbar region without neurogenic claudication Coding Level of Care Code New Pt Level 4 (35969) Diagnoses Lumbar spinal stenosis M48.061
== END 2024-01-11 10:39 | disposition home or self-care (01) ==
PROVIDERS: PCP Internal Medicine; Referring Provider Internal Medicine; Visit Provider Physician Assistant
DX: M48.061 Spinal stenosis, lumbar region without neurogenic claudication (principal)
CPT/HCPCS: 99204

== ENCOUNTER → 2024-01-11 09:19 | Outpatient (BNVA) | payer OTHER, SELFPAY | PROVIDERS: PCP Internal Medicine; Visit Provider Physician Assistant | DX: M48.061 Spinal stenosis, lumbar region without neurogenic claudication (principal) | CPT/HCPCS: 99202 ==

== ENCOUNTER 2024-01-15 09:29 | Outpatient (AMB) | payer OTHER, SELFPAY ==
[2024-01-15 09:35] VITALS: BP 115/58; PULSE 81; O2SAT 98; BMI 29.2
--- NOTE | 2024-01-15 09:35 | MHC.OFFVIS ---
Vital Signs 01/15/24 09:35 Height 4 ft 9 in Weight 135 lb BMI 29.2 BP 115/58 L Blood Pressure Location Lt brachial Position Sitting Pulse 81 Pulse Source Pulse Oximeter Pulse Oximetry (%) 98 Oxygen Delivery Method Room Air Intake Visit Reasons: Discuss MRI results Allergies apple [Apple] Allergy (Severe, Verified 11/11/23 10:16) THROAT SWELLING pear [Pear] Allergy (Severe, Verified 11/11/23 10:16) THROAT SWELLING banana [BANANA] Allergy (Intermediate, Verified 11/11/23 10:16) HIVES,THROAT SWELLING latex Allergy (Intermediate, Verified 11/11/23 10:16) Rash nystatin Allergy (Intermediate, Verified 11/11/23 10:16) swelling nuts Allergy (Severe, Uncoded 11/11/23 10:16) anaphylaxis fruits Allergy (Intermediate, Uncoded 11/11/23 10:16) anaphylaxis HPI Comments Details: Jennifer presents back to the office today for follow-up, review recent MRI. Visit was completed with physical therapy manager Lauren #[id number] MRI reviewed, results as per below Continues with left lower back pain with radiation down the left leg Pain today is rated as a 1/10. She does state that it gets worse at times and last night was a 6/10 Currently taking Tylenol with minimal improvement She has just started physical therapy Prior: Jennifer is a very pleasant 78-year-old female who presents to the office today for evaluation and management of her chronic lower back pain Reports she has been suffering with this pain for many years. Denies injury, trauma, fall. Bilateral lower back pain with radiation down the left leg to the level of the foot Pain is worse with forward flexion. Exacerbated by activity, though she is unable to detail specific activities that worsen her pain Pain today is rated as an 8/10, constant. She has been taking Tylenol as prescribed by her primary care doctor also using topical nonsteroidal anti-inflammatory cream. Endorses some improvement with Tylenol but that is short lived and then the pain returns. No recent attempts at physical therapy, chiropractor, acupuncture, massage or injections. She had an x-ray December of 2022, results as per below. This was reviewed with the patient today Denies red flag symptoms including new loss of bowel, bladder or saddle anesthesia In terms of muscle damage condition is described as aching, throbbing, shooting Pain is negatively impacting patient's enjoyment of life, general activity, sleep, ability to perform activities of daily living Denies current use of alcohol, tobacco, nicotine or illicit substances. Denies implantable devices, pacemaker defibrillator Denies current use of anticoagulants [facility] Medical History Internal and external thrombosed hemorrhoids Postmenopausal Physical exam Headache Low back pain Seasonal allergies Abdominal gas pain Right shoulder pain Left hip pain Right elbow pain Hypovitaminosis D Chronic constipation Surgical History History of tooth extraction Hx of colonoscopy Hx of cataract extraction Family History Father Throat cancer Mother Cancer of unknown origin Social History Household Members Other:: alone Housing: Apartment Alcohol intake: current Alcohol intake frequency: holidays/special occasions only Alcohol type: wine and hard liquor Patient Tobacco Use Status: Never used Tobacco e-Cigarette/Vaping Use: Never Used Second Hand Smoke Exposure: No service: No Current occupational status: disabled Cognitive needs: No Hearing needs: Yes Vision needs: Yes Review of Systems Const All systems reviewed & are unremarkable except as noted in HPI and below Physical Exam Vital Signs: Last Vital Signs Pulse 81 01/15/24 09:35 BP 115/58 L 01/15/24 09:35 Pulse Ox 98 01/15/24 09:35 Oxygen Delivery Method Room Air 01/15/24 09:35 BMI result Body Mass Index 29.2 General: awake, alert, oriented. Answers questions appropriately. Fully engaged in examination. Skin: warm, dry, intact HEENT: Normocephalic. Hearing intact. Cardiac: External chest normal in appearance. Respiratory: No cough, audible wheezing or stridor. Abdomen: without gross distension. MS: No obvious swelling or deformities. Able to stand on bilateral tiptoes and bilateral heels.? Able to transition from sit to stand unassisted. Ambulates with bilaterally normal heel strike and toe off Bilateral lower extremity strength 5/5 SLR positive on the left Negative footdrop, negative clonus Neurological: Oriented to person, place, time and situation. Thought process intact. No gait abnormalities appreciated. Psychiatric: Appropriate mood and affect. Good judgment and insight. Results Reviewed Results Reviewed: 11/2023 MR/MR lumbar spine wo con FINDINGS: Alignment is normal. Vertebral body heights are preserved. No acute bone marrow signal changes. There is disc desiccation at multiple levels without substantial loss of intervertebral disc height. The tip of the conus medullaris is located at L1. No mass effect on the conus. Visualized distal cord signal intensity is normal. At L1-L2 the annular contour is normal. No canal stenosis. No mass effect on the traversing or foraminal nerve root. At L2-L3 there is a bulging disc. Bilateral facet degenerative changes. No canal stenosis. No mass effect on the traversing or foraminal nerve roots. At L3-L4 there is a bulging disc. Bilateral facet degenerative change. No canal stenosis. No mass effect on the traversing or foraminal nerve roots. At L4-L5 there is a bulging disc. Bilateral facet degenerative change. Mild canal stenosis. Subarticular zone narrowing causes displacement and possible compression of the left traversing L5 nerve roots. No foraminal nerve root compression. At L5-S1 there is a slightly bulging disc. Bilateral facet degenerative changes. No mass effect on the traversing or foraminal nerve roots. Limited visualization of the retroperitoneal anatomy reveals no abnormal finding. Psoas and paraspinal muscle groups are symmetric. IMPRESSION: There is multilevel degenerative spondylosis of the lumbar spine. Mild canal stenosis at L4-L5. Subarticular zone narrowing at this level causes displacement and possible compression of the left traversing L5 nerve roots. Otherwise no substantial mass effect on the traversing or foraminal nerve roots elsewhere within the lumbar spine. 12/24/2022 XR/XR lumbar spine 2-3V LUMBAR SPINE: There is normal lumbar lordosis. The vertebral heights, alignment and the disc heights are normal. There is no visible acute fracture, dislocation or lytic process seen. There is mild ventral spondylosis of the superior endplate L3 and L4 vertebra. No aggressive lytic or sclerotic process seen. SI joints are symmetrical and normal. KIDNEY, URETER AND BLADDER: No radiopaque calculi seen. The bowel gas pattern is nonspecific. No organomegaly. No gross bony abnormality. LEFT KNEE: There is mild loss of medial and patellofemoral compartment joint space. No loose bodies, joint effusion or bony erosive changes. No fracture or dislocation. IMPRESSION: 1. Unremarkable lumbar spine exam except for mild ventral spondylosis at L3 and L4 vertebra. No visible acute fracture, dislocation or lytic process seen. 2. Unremarkable left knee exam. 3. Unremarkable kidney, ureter and bladder. Assessment & Plan Assessment & Plan (1) Lumbar pain: Code(s): M54.50 - Low back pain, unspecified Category: Medical (2) Lumbar radiculopathy: Code(s): M54.16 - Radiculopathy, lumbar region Category: Medical Plan Jennifer is a very pleasant 78-year-old female who presented to the office today for follow up, reviewed recent MRI MRI reviewed, results as per above Continue with plan for physical therapy Continue with Tylenol as prescribed. New prescription for methocarbamol 500 mg p.o. twice daily as needed. Patient advised on cautions for use Patient will try physical therapy, if no improvement will plan for fluoroscopy guided left L4-5 transforaminal epidural steroid injection with local anesthetic. All questions and concerns were answered, patient agrees with the plan. Follow up after PT, sooner if needed Medications: New methocarbamol No driving while taking this medication. Do no take with alcohol or other [employer] Depressants 500 mg PO BID PRN 60 tabs 0RF muscle spasm Coding Level of Care Code Est Pt Level 3 (09019) Complex EM visit Add On G2211 Diagnoses Lumbar pain M54.50 Lumbar radiculopathy M54.16
== END 2024-01-15 09:59 | disposition home or self-care (01) ==
PROVIDERS: PCP Internal Medicine; Visit Provider Registered Nurse Emergency
DX: M54.50 Low back pain, unspecified (principal); M54.16 Radiculopathy, lumbar region
CPT/HCPCS: 99213; G2211

== ENCOUNTER → 2024-01-15 09:29 | Outpatient (BNVA) | payer OTHER, SELFPAY | PROVIDERS: PCP Internal Medicine; Visit Provider Registered Nurse Emergency | DX: M54.50 Low back pain, unspecified (principal); M54.16 Radiculopathy, lumbar region | CPT/HCPCS: 99212 ==

== ENCOUNTER 2024-01-18 13:04 | Emergency (ER) | payer OTHER, SELFPAY ==
--- NOTE | ~2024-01-18 | CT_ITS ---
EXAMINATION: CT HEAD WITHOUT CONTRAST CT CERVICAL SPINE WITHOUT CONTRAST CLINICAL INFORMATION: Head strike. COMPARISON: CT head March 01, 2014 TECHNIQUE: Imaging was performed from the skull base to vertex without intravenous administration of contrast. In addition, helical noncontrast CT imaging was acquired through the cervical spine and source images were reviewed along with axial reconstructions and sagittal and coronal MPRs. [This CT examination was performed using dose optimization techniques as appropriate, variously including the following: *Automated exposure control *Adjustment of mA and/or kV according to patient size (this includes techniques or standardized protocols for targeted exams where dose is matched to indication/reason for exam; i.e. extremities or head) *Use of iterative reconstruction technique] DLP: 1003 mGy-cm FINDINGS: HEAD: No intracranial mass, hemorrhage, or midline shift is visualized. The ventricles and sulci are proportional. No extra-axial collections are identified. The paranasal sinuses and mastoid air cells are well aerated. CERVICAL SPINE: There is no evidence of acute cervical spine fracture. Vertebral bodies remain normal in height. Cervical vertebrae have normal alignment. There is multilevel degenerative spondylosis of the cervical spine with disc height narrowing and endplate spurs and facet joint arthrosis No pre- or paravertebral soft tissue abnormality is identified. Limited assessment of the lung apices is unremarkable. CT/CT cervical spine wo IV con IMPRESSION: 1. No acute intracranial pathology. 2. No CT evidence of acute cervical spine fracture or traumatic subluxation Electronically signed by: Obdulio Terry MD 01/18/2024 04:16 PM EDT
--- NOTE | ~2024-01-18 | XR_ITS ---
EXAMINATION: XR WRIST, RIGHT CLINICAL INFORMATION: Wrist swelling COMPARISON: None available. TECHNIQUE: PA, lateral, and oblique views of the right wrist. FINDINGS: The bones and soft tissues are normal. No fracture. Alignment is anatomic with normal joint spaces. No erosions or abnormal soft tissue calcifications. XR/XR wrist RT min 3V IMPRESSION: Normal right wrist. Electronically signed by: Isabella Lorenz MD 01/18/2024 06:08 PM EDT
--- NOTE | ~2024-01-18 | XR_ITS ---
EXAMINATION: XR SHOULDER, RIGHT CLINICAL INFORMATION: Fall, head strike? COMPARISON: None available. TECHNIQUE: AP external rotation, Grashey, scapular Y, and axillary views of the right shoulder. FINDINGS: There is mild acromioclavicular osteoarthritis. Glenohumeral joint is well preserved. No fracture. Alignment is anatomic. Soft tissues are normal with no abnormal calcifications. 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 Electronically signed by: Isabella Lorenz MD 01/18/2024 06:14 PM EDT
--- NOTE | ~2024-01-18 | CT_ITS ---
EXAMINATION: CT HEAD WITHOUT CONTRAST CT CERVICAL SPINE WITHOUT CONTRAST CLINICAL INFORMATION: Head strike. COMPARISON: CT head March 01, 2014 TECHNIQUE: Imaging was performed from the skull base to vertex without intravenous administration of contrast. In addition, helical noncontrast CT imaging was acquired through the cervical spine and source images were reviewed along with axial reconstructions and sagittal and coronal MPRs. [This CT examination was performed using dose optimization techniques as appropriate, variously including the following: *Automated exposure control *Adjustment of mA and/or kV according to patient size (this includes techniques or standardized protocols for targeted exams where dose is matched to indication/reason for exam; i.e. extremities or head) *Use of iterative reconstruction technique] DLP: 1003 mGy-cm FINDINGS: HEAD: No intracranial mass, hemorrhage, or midline shift is visualized. The ventricles and sulci are proportional. No extra-axial collections are identified. The paranasal sinuses and mastoid air cells are well aerated. CERVICAL SPINE: There is no evidence of acute cervical spine fracture. Vertebral bodies remain normal in height. Cervical vertebrae have normal alignment. There is multilevel degenerative spondylosis of the cervical spine with disc height narrowing and endplate spurs and facet joint arthrosis No pre- or paravertebral soft tissue abnormality is identified. Limited assessment of the lung apices is unremarkable. CT/CT head/brain wo IV con IMPRESSION: 1. No acute intracranial pathology. 2. No CT evidence of acute cervical spine fracture or traumatic subluxation Electronically signed by: Obdulio Terry MD 01/18/2024 04:16 PM EDT
[2024-01-18 13:20] VITALS: BP 150/66; PULSE 77; O2SAT 98
[2024-01-18 13:57] VITALS: BP 123/56; PULSE 73; RESP 18; TEMP 36.5; O2SAT 97; BMI 28.6
--- NOTE | 2024-01-18 14:38 | ED.FALL ---
HPI - Fall General Chief Complaint: Fall Stated Complaint: FALL 1 1/2 FT FROM LADDER,R SHOULDER PAIN,+CCOLLAR Time Seen by Provider: 01/18/24 13:16 Source: patient, family, EMS, RN notes reviewed and old records reviewed Mode of arrival: EMS History of Present Illness ED Provider: Zoila Wadsworth PA-C HPI Narrative: 78-year-old Martiniquais-speaking female with a past medical history chronic constipation, bladder pessary, presenting to the ED via EMS c/o right-sided head/facial pain, right-sided neck pain, right shoulder/wrist pain s/p mechanical trip and fall off step ladder onto right side [employer]. Unknown head trauma. Admits to taking ASA. Denies symptoms prior to fall including lightheadedness/dizziness, CP/SOB. Denies numbness, tingling. Also reports mild burning. Patient concerned about pessary Related Data Previous Rx's ?Medication ?Instructions ?Recorded diclofenac sodium 1 % topical gel 2 g topical QID 30 days #100 grams 05/28/22 oxyquinoline 0.025 %-sodium lauryl 1 ea vaginal 2XW 30 days #113.4 05/28/22 sulfate 0.01 % vaginal gel grams nystatin 100,000 unit/gram topical 1 appl topical DAILY 2 weeks #30 06/23/22 cream grams docusate sodium 100 mg capsule 200 mg (2 x 100 mg) PO BEDTIME #60 12/24/22 (Colace) caps melatonin 5 mg tablet 5 mg PO BEDTIME PRN sleep 90 days 12/24/22 #90 tabs ewglizhy-isbyoso-cfhd-lutein tablet 1 tab PO .once a day 90 days #90 12/24/22 tabs cholecalciferol (vitamin D3) 25 25 mcg PO DAILY 90 days #90 caps 02/08/23 mcg (1,000 unit) capsule epinephrine 0.3 mg/0.3 mL 0.3 mg (0.3 mL) IM Q4H PRN 04/12/23 injection, auto-injector (EpiPen) anaphylaxis 30 days #2 ea polyethylene glycol 3350 17 17 g PO DAILY #510 grams 04/12/23 gram/dose oral powder (Miralax) psyllium husk 3.4 gram/5.4 gram 1 tbsp PO DAILY #660 grams 07/09/23 oral powder (Metamucil) calcium carbonate 1,200 mg (2 x 600 mg calcium 10/11/23 (1,500 mg)) PO DAILY 90 days #180 tabs mirabegron 25 mg tablet,extended 25 mg PO DAILY 90 days #90 tabs 10/11/23 release 24 hr (Myrbetriq) acetaminophen 650 mg 650 mg PO Q8H PRN Pain 30 days #90 10/21/23 tablet,extended release tabs magnesium 250 mg tablet 250 mg PO DAILY 90 days #90 tabs 10/22/23 aspirin 81 mg tablet,delayed 81 mg PO DAILY 90 days #90 tabs 11/04/23 release nirmatrelvir 300 mg (150 mg 3 ea PO PER PKG DIR 5 days #30 ea 11/04/23 x2)-ritonavir 100 mg tablet,dose pack (Paxlovid) clotrimazole-betamethasone 1 1 appl topical BID #15 grams 11/16/23 %-0.05 % topical cream cetirizine 10 mg tablet 10 mg PO DAILY PRN Allergy 12/22/23 Symptoms 90 days #90 tabs methocarbamol 500 mg tablet 500 mg PO BID PRN muscle spasm #60 01/15/24 tabs Allergies Allergy/AdvReac Type Severity Reaction Status Date / Time apple [Apple] Allergy Severe THROAT Verified 01/18/24 14:01 SWELLING pear [Pear] Allergy Severe THROAT Verified 01/18/24 14:01 SWELLING banana [BANANA] Allergy Intermediate HIVES,THROAT Verified 01/18/24 14:01 SWELLING latex Allergy Intermediate Rash Verified 01/18/24 14:01 nystatin Allergy Intermediate swelling Verified 01/18/24 14:01 nuts Allergy Severe anaphylaxis Uncoded 11/11/23 10:16 fruits Allergy Intermediate anaphylaxis Uncoded 11/11/23 10:16 Review of Systems Review of Systems: Yes all other systems are reviewed and are negative Constitutional: Constitutional: Reports as per HPI Neurologic: Denies Abnormal speech present PMFSH Past Medical History Attestation statement: The following information was validated with the patient. Source: old records reviewed Medical History Internal and external thrombosed hemorrhoids Postmenopausal Physical exam Headache Low back pain Seasonal allergies Abdominal gas pain Right shoulder pain Left hip pain Right elbow pain Hypovitaminosis D Chronic constipation Surgical History History of tooth extraction Hx of colonoscopy Hx of cataract extraction Family History Family History Father Throat cancer Mother Cancer of unknown origin Social History Social History Household Members Other:: alone Housing: Apartment Alcohol intake: current Alcohol intake frequency: holidays/special occasions only Alcohol type: wine and hard liquor Patient Tobacco Use Status: Never used Tobacco e-Cigarette/Vaping Use: Never Used Second Hand Smoke Exposure: No Advance Directives: No Advance Directives Information Provided: No Do you have a plan to hurt others: No Plan service: No Current occupational status: disabled Cognitive needs: No Hearing needs: Yes Vision needs: Yes Physical Exam Vital Signs: Vital Signs: Last Vital Signs Temp 98.3 F 01/18/24 17:58 Pulse 74 01/18/24 17:58 Resp 16 01/18/24 17:58 BP 126/57 L 01/18/24 17:58 Pulse Ox 100 01/18/24 17:58 O2 Del Method Room Air 01/18/24 17:58 BMI result Body Mass Index 28.6 Const: General: cooperative, healthy appearing and no acute distress Orientation/consciousness: patient oriented x3 Limitations: no limitations HEENT: Head: Yes normal to inspection, Yes atraumatic, No Huang's sign and No raccoon eyes Ears: hearing grossly normal bilaterally General nose exam: Normal external nose present Face and sinus: Yes normal facial exam Mouth: Normal oral and palatal mucosa present Throat: Yes posterior oropharynx normal, Yes uvula midline, No uvula laterally displaced and No uvular edema Eyes: General: appearance normal, both eyes and all related structures Pupils: Equal, round and reactive pupils present EOM: EOMs intact bilaterally Neck: Other: C-collar in place. No midline spinous tenderness Neck: Yes normal visual inspection, Yes no meningeal signs and No anterior neck swelling Chest: Chest palpation & inspection: normal inspection of the chest, no crepitus and no tenderness Resp: Effort & Inspection: normal respiratory effort and no respiratory distress Cardio: Rate: regular rate Heart sounds: S1 normal heart sound present and S2 normal heart sound present GI: Inspection: Yes normal to inspection Palpation (GI): Soft to palpation, nontender, no guarding and not rigid : General: Yes no CVA tenderness Back/Spine/Pelvis: Other: No midline cervical/thoracic/lumbar spinous tenderness/step-off or deformity Back: no CVA tenderness Skin: Rashes: no rashes Wounds: no wounds Neuro: General: patient oriented x3, tone normal, moves all extremities, no meningeal signs, no focal motor deficits and CN's II-XI intact bilaterally Cranial nerves: Yes CN's II-XII intact bilaterally and Yes Equal, round and reactive pupils present Cognition (Neuro): normal cognition Speech: No Abnormal speech present Motor exam (neuro): 5/5 motor strength present throughout Extrem: Other: Right shoulder without appreciable deformity. Mild tenderness to palpation. Full range of motion intact. Neurovascular intact distally. Right wrist with minimal swelling. No erythema. Nontender. No snuffbox tenderness General: Yes normal to inspection Course Course Course Narrative: 1821--CT head/brain wo IV con/CT cervical spine wo IV con IMPRESSION: 1. No acute intracranial pathology. 2. No CT evidence of acute cervical spine fracture or traumatic subluxation XR wrist RT min 3V IMPRESSION: Normal right wrist. 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 -1835--On re-evaluation patient noticed linear erythematous scratches/ nontender, nonblanching ?Petechiae to LUE. Will obtain labs including coags -1899--ED care transferred to [facility] pending labs and re-evaluation Medical Decision Making Medical Decision Making MDM Narrative: 78-year-old Martiniquais-speaking female with a past medical history chronic constipation, bladder pessary, presenting to the ED via EMS c/o right-sided head/facial pain, right-sided neck pain, right shoulder/wrist pain s/p mechanical trip and fall off step ladder onto right side [employer]. On exam vital signs stable, NAD, nontoxic appearing, no midline spinous tenderness. No focal neuro deficits. + mild right shoulder tenderness, and wrist swelling. Concern for ICH vs fractures vs MSK pain/strain. Abdomen soft/nontender. Lower suspicion for pessary complication with mechanical fall. Plan: CT's, XR's, UA Please refer to course for remaining clinical decision making, interpretation of labs/imaging results, and discussions with consultants and/or family members. Differential Diagnosis Differential Diagnoses: The differential diagnosis associated with the presentation includes As above Admission/Observation Consideration of admission/observation: Escalation of care including admission/observation considered Lab Data MDM Lab Attestation statement: I reviewed the patient's lab results. 01/18/24 18:46 01/18/24 18:46 Labs: Lab Results 01/18/24 01/18/24 Range/Units 14:43 18:46 WBC 7.0 (4.8-10.8) X10*3/uL RBC 4.43 (4.20-5.50) X10*6/uL Hgb 13.5 (12.0-16.0) g/dl Hct 40.0 (37.0-47.0) % MCV 90.3 (80.0-98.0) fL MCH 30.5 (27.0-33.0) pg MCHC 33.8 (31.0-35.0) g/dl RDW 12.3 (11.0-16.0) % Plt Count 243 (160-400) X10*3/uL MPV 9.7 (9.4-12.3) fL Immature Gran % (Auto) 0.3 (0.0-0.4) % Neut % (Auto) 57.5 (45-73) % Lymph % (Auto) 32.5 (20-40) % King % (Auto) 7.5 (2-11) % Eos % (Auto) 1.9 (0-4) % Baso % (Auto) 0.3 (0-2) % Lymph # (Auto) 2.3 (1.2-4.9) X10*3/uL King # (Auto) 0.5 (0.1-1.2) X10*3/uL Eos # (Auto) 0.1 (0.0-0.4) X10*3/uL Baso # (Auto) 0.0 (0.0-0.2) X10*3/uL Abs Immat Gran (auto) 0.02 (0.00-0.03) X10*3/uL Absolute Neuts (auto) 4.0 (2.0-8.3) x10*3/uL Absolute Nucleated RBC 0.000 (0.0-0.012) X10*3/uL Nucleated RBC % (auto) 0.0 (0.0-0.2) /100WBC PT 11.4 (10.9-12.4) SEC INR 1.0 (0.9-1.1) APTT 31.2 (26.0-36.8) SEC Sodium 143 (135-145) mmol/L Potassium 3.8 (3.3-5.1) mmol/L Chloride 108 (96-108) mmol/L Carbon Dioxide 24 (22-29) mmol/L Anion Gap 15 (12-20) BUN 11 (9-16) mg/dL Creatinine 0.75 (0.5-1.4) mg/dL Estim Creat Clear Calc 51.9 Estimated GFR > 60 Random Glucose 134 H (60-115) mg/dL Calcium 9.3 (8.4-10.2) mg/dL Urine Color Yellow Urine Appearance Clear Urine pH 7.0 (5.0-9.0) Ur Specific [place] <= 1.005 (1.005-1.025) Urine Protein Negative (Neg-Trace) mg/dL Urine Glucose (UA) Negative (Negative) mg/dL Urine Ketones Negative (Negative) mg/dL Urine Blood Negative (Negative) Urine Nitrite Negative (Negative) Ur Leukocyte Esterase Trace H (Negative) Urine RBC 0-2 (0-2) /HPF Urine WBC 0-5 (0-5) /HPF Ur Squamous Epith Cells 0-2 (0-2) /HPF Urine Bacteria None Seen (None Seen) Hyaline Casts 0-2 (0-2) /LPF Independent Interpretation I performed an independent interpretation of an: Plain X-Ray and CT Scan Radiology Impression Discussion of test interpretation with radiology: I have reviewed the radiologist's reading. Independent Historian Clinical information obtained from an independent historian. History obtained from or confirmed by: EMS and Other (daughter) External Record Review External record reviewed: Inpatient record, Office record, Outpatient record, Prior outpatient labs, Prior outpatient radiology, Primary care record and Outside ED record Tests considered The following testing was considered but not selected: As above Prescription Management I considered prescription management with: Pain Medication Chronic Conditions Patient?s care impacted by: Other (PAD) Discharge Plan Discharge Clinical Impression: Head injury, Neck pain, Acute shoulder pain Patient Disposition: Home, Self-Care Instructions: Arthralgia (ED), Neck Pain (ED) Additional Instructions: Your CT scans and x-rays are reassuring Your blood work was also reassuring Your urine is not infected Please have close follow-up with her doctor It is normal for you to feel sore. Ice painful areas. Take Tylenol for pain If symptoms persist or worsen you constant worsening headache, lightheadedness/dizziness, chest pain/shortness of breath or weakness return to the ED Prescriptions: No Action cholecalciferol (vitamin D3) 25 mcg (1,000 unit) capsule 25 mcg PO DAILY 90 Days Qty: 90 1RF polyethylene glycol 3350 [Miralax] 17 gram/dose powder 17 g PO DAILY Qty: 510 2RF epinephrine [EpiPen] 0.3 mg/0.3 mL auto-injector 0.3 mg IM Q4H PRN (Reason: anaphylaxis) 30 Days Qty: 2 1RF calcium carbonate 600 mg calcium (1,500 mg) tablet 1,200 mg PO DAILY 90 Days Qty: 180 1RF Myrbetriq 25 mg tablet extended release 24 hr 25 mg PO DAILY 90 Days Qty: 90 1RF acetaminophen 650 mg tablet extended release 650 mg PO Q8H PRN (Reason: Pain) 30 Days Qty: 90 1RF magnesium 250 mg tablet 250 mg PO DAILY 90 Days Qty: 90 0RF clotrimazole-betamethasone 1-0.05 % cream 1 appl topical BID Qty: 15 0RF cetirizine 10 mg tablet 10 mg PO DAILY PRN (Reason: Allergy Symptoms) 90 Days Qty: 90 0RF nystatin 100,000 unit/gram cream 1 appl topical DAILY 14 Days Qty: 30 0RF diclofenac sodium 1 % gel 2 g topical QID 30 Days Qty: 100 0RF oxyquinoline-sod.lauryl sulfat 0.025-0.01 % gel 1 ea vaginal 2XW 30 Days Qty: 113.4 0RF Paxlovid 300 mg (150 mg x 2)-100 mg tablets,dose pack 3 ea PO PER PKG DIR 5 Days Qty: 30 0RF aspirin 81 mg tablet,delayed release (DR/EC) 81 mg PO DAILY 90 Days Qty: 90 0RF docusate sodium [Colace] 100 mg capsule 200 mg PO BEDTIME Qty: 60 5RF melatonin 5 mg tablet 5 mg PO BEDTIME PRN (Reason: sleep) 90 Days Qty: 90 0RF scbkcfcj-utmlmef-wxxb-lutein Tablet 1 tab PO .once a day 90 Days Qty: 90 3RF Metamucil 3.4 gram/5.4 gram powder 1 tbsp PO DAILY Qty: 660 2RF Rx Instructions: mix into at least 8 oz of water or juice before administering methocarbamol 500 mg tablet 500 mg PO BID PRN (Reason: muscle spasm) Qty: 60 0RF Rx Instructions: No driving while taking this medication. 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
[2024-01-18 14:48] LABS: Appearance Urine Clear; Color Urine Yellow; Glucose Urine UA Negative (Negative); Leukocyte Esterase Urine Trace (Negative); Nitrite Urine Negative (Negative); Specific Gravity - Urine <= 1.005 (1.005-1.025); UMIC TRIGGER UACC YES; Urine Blood Negative (Negative); Urine Ketones Negative (Negative); Urine Protein Negative (Neg-Trace)
[2024-01-18 14:55] LABS: Bacteria Urine None Seen (None Seen); Hyaline Casts Urine 0-2 /LPF (0-2); RBC Urine 0-2 /HPF (0-2); Squamous Epithelial Cell Urine 0-2 /HPF (0-2); WBC Urine 0-5 /HPF (0-5)
[2024-01-18 17:58] VITALS: BP 126/57; PULSE 74; RESP 16; TEMP 36.8; O2SAT 100
[2024-01-18 18:53] LABS: MANUAL DIFF FLAG NO
[2024-01-18 19:13] LABS: Anion Gap 15 (12-20); Blood Urea Nitrogen 11 mg/dL (9-16); Calcium 9.3 mg/dL (8.4-10.2); Carbon Dioxide 24 mmol/L (22-29); Chloride 108 mmol/L (96-108); Creatinine Clr Calc Pharmacy 51.9; Estimated Glomerular Filt Rate > 60; Glucose Random 134 mg/dL (60-115); Potassium 3.8 mmol/L (3.3-5.1); Sodium 143 mmol/L (135-145)
[2024-01-18 19:15] LABS: Basophils Percent Auto 0.3 % (0-2); Eosinophils Absolute Auto 0.1 X10*3/uL (0.0-0.4); Eosinophils Percent Auto 1.9 % (0-4); Hemoglobin 13.5 g/dl (12.0-16.0); Imm Gran Abs Auto 0.02 X10*3/uL (0.00-0.03); Imm Gran Pct Auto 0.3 % (0.0-0.4); Lymphocytes Absolute Auto 2.3 X10*3/uL (1.2-4.9); Lymphocytes Percent Auto 32.5 % (20-40); Mean Corpuscular HGB Conc 33.8 g/dl (31.0-35.0); Mean Corpuscular Hemoglobin 30.5 pg (27.0-33.0); Mean Corpuscular Volume 90.3 fL (80.0-98.0); Mean Platelet Volume 9.7 fL (9.4-12.3); Monocytes Absolute Auto 0.5 X10*3/uL (0.1-1.2); Monocytes Percent Auto 7.5 % (2-11); Neutrophils Percent Auto 57.5 % (45-73); Platelet Count 243 X10*3/uL (160-400); Red Blood Count 4.43 X10*6/uL (4.20-5.50); Red Cell Distribution Width 12.3 % (11.0-16.0)
[2024-01-18 19:22] LABS: Prothrombin Time 11.4 SEC (10.9-12.4)
[2024-01-18 19:25] LABS: Partial Thromboplastin Time 31.2 SEC (26.0-36.8)
[2024-01-18 19:52] VITALS: BP 126/57; PULSE 74; RESP 16; TEMP 36.8; O2SAT 100
== END 2024-01-18 19:52 | disposition home or self-care (01) ==
PROVIDERS: Physician Assistant; Emergency Provider Emergency Medicine; PCP Internal Medicine
DX: S09.90XA Unspecified injury of head, initial encounter (principal); W11.XXXA Fall on and from ladder, initial encounter; M54.2 Cervicalgia; M25.511 Pain in right shoulder; E78.2 Mixed hyperlipidemia; E55.9 Vitamin D deficiency, unspecified; I73.9 Peripheral vascular disease, unspecified; Y93.9 Activity, unspecified; Y92.039 Unspecified place in apartment as the place of occurrence of the external cause; Y99.9 Unspecified external cause status; Z79.899 Other long term (current) drug therapy
CPT/HCPCS: 36415; 70450; 72125; 73030; 73110; 80048; 81001; 85025; 85610; 85730; 99283; 99284

== ENCOUNTER 2024-01-29 07:37 | Outpatient (AMB) | payer OTHER, SELFPAY ==
--- NOTE | 2024-01-29 08:02 | A.OFFPC_ITS ---
Vital Signs 01/29/24 08:03 Height 4 ft 9 in Weight 135 lb BMI 29.2 BP 92/58 L Blood Pressure Location Lt brachial Position Sitting Pulse 72 Pulse Source Pulse Oximeter Pulse Oximetry (%) 97 Oxygen Delivery Method Room Air Intake Visit Reasons: [facility] 01/17 FALL Veterinary Technology Instructor Required: Yes Veterinary Technology Instructor Language: Kinyarwanda Allergies apple [Apple] Allergy (Severe, Verified 01/29/24 08:03) THROAT SWELLING pear [Pear] Allergy (Severe, Verified 01/29/24 08:03) THROAT SWELLING banana [BANANA] Allergy (Intermediate, Verified 01/29/24 08:03) HIVES,THROAT SWELLING latex Allergy (Intermediate, Verified 01/29/24 08:03) Rash nystatin Allergy (Intermediate, Verified 01/29/24 08:03) swelling nuts Allergy (Severe, Uncoded 01/29/24 08:03) anaphylaxis fruits Allergy (Intermediate, Uncoded 01/29/24 08:03) anaphylaxis Tobacco use date assessed: 06/29/23 Fall risk assessment: 1 Fall in past year Last assessed Fall Risk: 01/29/24 Dental Screening Dental Screen Date: 06/29/23 HPI HPI Comments History of Present Illness Details 78 y/o female patient presents to the in today for EDF. She was admitted at [facility] on 01/18/24 and discharged home on the same day. She had suffered a Fall at home and was c/o right sided body (head, face. shoulder and lower back) pain. Imaging was negative. [facility] Medical History Internal and external thrombosed hemorrhoids Postmenopausal Physical exam Headache Low back pain Seasonal allergies Abdominal gas pain Right shoulder pain Left hip pain Right elbow pain Hypovitaminosis D Chronic constipation Surgical History History of tooth extraction Hx of colonoscopy Hx of cataract extraction Family History Father Throat cancer Mother Cancer of unknown origin Social History Household Members Other:: alone Housing: Apartment Alcohol intake: current Alcohol intake frequency: holidays/special occasions only Alcohol type: wine and hard liquor Patient Tobacco Use Status: Never used Tobacco Tobacco use type: Cigarette e-Cigarette/Vaping Use: Never Used Second Hand Smoke Exposure: No service: No Current occupational status: disabled Cognitive needs: No Hearing needs: Yes Vision needs: Yes Questionnaire PHQ-9 Over the last 2 weeks, how often have you been bothered by any of the following problems? 1. Little interest or pleasure in doing things: not at all 2. Feeling down, depressed, or hopeless: not at all 3. Trouble falling or staying asleep, or sleeping too much: not at all 4. Feeling tired or having little energy: not at all 5. Poor appetite or overeating: not at all 6. Feeling bad about yourself - or that you are a failure or have let yourself or your family down: not at all 7. Trouble concentrating on things, such as reading the newspaper or watching television: not at all 8. Moving or speaking so slowly that other people could have noticed. Or the opposite - being so fidgety or restless that you have been moving around a lot more than usual: not at all 9. Thoughts that you would be better off or of hurting yourself in some way: not at all Total score: 0 Depression Screening Interpretation: Negative Depression Screening Done: Yes 10674 - PHQ-9 Billing: Yes Source: Developed by Drs. Jeronimo De Leon, Adonis Mills and colleagues, with an educational kristal from [employer]. Thrive Questionnaire Date Thrive assessed: 06/29/23 AUDIT C Alcohol Use Questionnaire (AUDIT-C) 1. How often do you have a drink containing alcohol?: Monthly or less 2. How many drinks containing alcohol do you have on a typical day when you are drinking?: 1 or 2 3. How often do you have six or more drinks on one occasion?: Never Total Score: 1 Score Reviewed/Action Taken: No SUSI-7 AMB Questionnaire SUSI-7 Date SUSI - 7 assessed: 06/29/23 Source: Developed by Drs. Jeronimo De Leon, Adonis Mills and colleagues, with an educational kristal from [employer]. Review of Systems Const All systems reviewed & are unremarkable except as noted in HPI and below Physical exam (Primary Care) Vital Signs: Last Vital Signs Pulse 72 01/29/24 08:03 BP 92/58 L 01/29/24 08:03 Pulse Ox 97 01/29/24 08:03 Oxygen Delivery Method Room Air 01/29/24 08:03 BMI result Body Mass Index 29.2 Tobacco/Smoking Status: Tobacco use Status Tobacco use date assessed 06/29/23 01/29/24 08:09 Patient Tobacco Use Status Never used Tobacco 01/29/24 08:09 Tobacco use type Cigarette 01/29/24 08:09 e-Cigarette/Vaping Use Never Used 01/29/24 08:09 PHQ-9: PHQ-9 Score PHQ-9: Total score 0 01/29/24 08:09 Depression Screening Interpretation: Negative Thrive Assessment: Date of Thrive Assessment Date Thrive assessed 06/29/23 01/29/24 08:09 Const General: cooperative and no acute distress Nutritional Appearance: overweight Orientation/consciousness: patient oriented x3 HENMT Head: Yes normocephalic Resp Effort & Inspection: normal respiratory effort Cardio Heart sounds: S1 normal heart sound present and S2 normal heart sound present Back/Spine/Pelvis Back: back tenderness Thoracic/Lumbar Spine: thoraco-lumbar ROM normal and lumbar spinal tenderness Neuro General: patient oriented x3, gait normal and moves all extremities Extrem General: Yes normal to inspection and Yes full ROM Psych Speech and movement: Normal speech and movement present Coding Level of Care Code Est Pt Level 4 (21028) Diagnoses Chronic midline low back pain without sciatica M54.50; G89.29 Chronicity: chronic Back pain laterality: midline Time Spent (min) 20 Comment Spent reviewing hospital notes. Assessment & Plan Assessment & Plan (1) Lumbago without sciatica: Code(s): M54.50 - Low back pain, unspecified Qualifiers: Chronicity: chronic Back pain laterality: midline Qualified Code(s): M54.50 - Low back pain, unspecified; G89.29 - Other chronic pain Plan: Acetaminophen for pain relief. Ordered Lido patch for pain relief. F/U with PCP. Medications: New lidocaine 5% leave on most painful area for up to 12 hrs 1 patch topical DAILY 30 ea 0RF G89.29 - Other chronic pain, M54.50 - Low back pain, unspecified
[2024-01-29 08:03] VITALS: BP 92/58; PULSE 72; O2SAT 97; BMI 29.2
== END 2024-01-29 08:28 | disposition home or self-care (01) ==
PROVIDERS: PCP Internal Medicine; Visit Provider Nurse Practitioner Family
DX: M54.50 Low back pain, unspecified (principal); G89.29 Other chronic pain

== ENCOUNTER → 2024-01-29 07:37 | Outpatient (BNVA) | payer OTHER, SELFPAY | PROVIDERS: PCP Internal Medicine; Visit Provider Nurse Practitioner Family | DX: M54.50 Low back pain, unspecified (principal); G89.29 Other chronic pain | CPT/HCPCS: 96127; 99212 ==

== ENCOUNTER 2024-02-17 11:00 | Outpatient (RCR) | payer OTHER, SELFPAY ==
--- NOTE | 2024-01-27 11:12 | MHC.PT.EP ---
[facility] [place] [facility] [place] [facility] [place] Office [address] [phone] F: [phone] F: [phone] F: [phone] F: [phone] Physical Therapy Plan of Care Date of Evaluation: 01/27/24 Date of Surgery: Diagnosis: spinal stenosis, lumbar region without neurogenic claudication Assessment: 78 y/o very pleasant female referred to PT with spinal stenosis of lumbar region, worse at L4-5 region. States she is able to do everything but with pain such as grocery store, cooking, cleaning, walking, ADL's. Some days she is able to walk 45 minutes and other days 15 minutes. Of note, she fell 2 weeks ago and pain has improved since then. Examination shows decreased lumbar AROM, decreased hip AROM, decreased LE strength, tenderness to palpate L lumbar region, and impaired gait pattern. S/s consistent with lumbar derangement. Pt would prefer to come 1x/week Frequency and Duration: The patient will be seen 1x/week for 5 weeks Short Term Goals: 3 weeks I with HEP Care Home Goals: 5 weeks I with hEP and self management of sx Pt will be able to ambulate >30 minutes iwth pain < 310 Pt will be able to don L socks/shoe wiht pain < 3/10 Treatment Plan: Modalities to reduce pain, spasms and effusion. Manual therapy to restore motion and function. Therapeutic exercise to improve strength and flexibility. Neuromuscular re-education for posture and balance. Therapeutic activities to return to functional activities of daily living. Electronically signed by: Candice Devi PT Please sign and return to therapist. Thank you for your referral.
--- NOTE | 2024-02-17 12:17 | MHC.PT.DC ---
[facility] [place] [facility] [place] [facility] [place] [facility] [address] Mitesh Monge [address] [phone] F: [phone] F: [phone] F: [phone] F: [phone] Physical Therapy Discharge Report Diagnosis: spinal stenosis, lumbar region without neurogenic claudication Date of Surgery: Date of Evaluation: 01/27/24 Date of Discharge: 02/17/24 Treatments to Date: 5 Cancellations to Date: 0 No Shows to Date: 0 Discharge Status: Achieved Goals Improved Function Independent with HEP Discharge Summary: Pt reports good and bad days, but overall pain is less than before. SHe can walk 20-30minutes at this time before it is too sore. At this time, she reports feeling ready to be done with PT and will continue with HEP Electronically signed by: Candice Devi PT Please sign and return to therapist. Thank you for your referral.
== END 2024-02-17 12:18 | disposition home or self-care (01) ==
LOC: HO.PT 11:00
PROVIDERS: PCP Internal Medicine; Visit Provider Physician Assistant
DX: M48.061 Spinal stenosis, lumbar region without neurogenic claudication (principal)
CPT/HCPCS: 97110; 97162

== ENCOUNTER 2024-03-04 10:04 | Outpatient (REF) | payer OTHER, SELFPAY ==
--- NOTE | ~2024-03-04 | MM_ITS ---
EXAMINATION: BONE DENSITOMETRY CLINICAL INDICATION: Unspecified menopausal and perimenopausal disorder. COMPARISON: Previous BD dated 06/12/2021 and baseline BD dated 10/30/2006. TECHNIQUE: Using a [employer] DXA System (software version: 13.1) manufactured by [employer], dual-energy x-ray absorptiometry was performed of the lumbar spine and left hip. The images are of good technical quality. Summary results are attached. FINDINGS: LEFT FEMUR, NECK: Current: BMD 0.782 g/cm2, Z-score 0.2, T-score -1.8, osteopenia. Prior: BMD 0.741 g/cm2. Baseline: BMD 0.788 g/cm2. LEFT FEMUR, TOTAL: Current: BMD 0.903 g/cm2, Z-score 1.1, T-score -0.8, normal, 2.5% increase from previous, 1.2% decrease from baseline (<5% change is not significant). Prior: BMD 0.881 g/cm2. Baseline: BMD 0.914 g/cm2. AP SPINE L1-L3 (excluding L4): The data of L1-L4 has been changed to exclude the L4 vertebral body, because degenerative changes at this level may cause overestimation of lumbar spine density. Current: BMD 1.020 g/cm2, Z-score 0.7, T-score -1.3, osteopenia, 0.3% increase from previous, 1.9% decrease from baseline (<5% change is not significant). Prior: BMD 1.017 g/cm2. Baseline: BMD 1.040 g/cm2. IDENTIFIED RISK FACTORS: Early menopause, secondary osteoporosis. HISTORY OF FRACTURE: None listed. MEDICATIONS: Calcium supplements or multivitamin, vitamin D. MM/XR DEXA axial skeleton IMPRESSION: 1. DIAGNOSIS: Osteopenia based on the lowest T-score value of -1.8 in the femoral neck applying World Health Organization criteria. 2. 10-YEAR FRACTURE RISK PREDICTION, FRAX: Major osteoporotic fracture (clinical spine, forearm, hip or shoulder) 7.9%. Hip fracture 2.0%. 3. Treatment Recommendations: NOF guidelines recommend consideration for treatment in postmenopausal women and men age 50 and older presenting with the following: -A hip or vertebral (clinical or morphometric) fracture. -T-score less than or equal to -2.5 at the femoral neck or spine after appropriate evaluation to exclude secondary causes. -Low bone mass at the hip or spine and a 10-year fracture probability by FRAX of greater than or equal to 3% for hip fracture or greater than or equal to 20% for major osteoporotic fracture based on the [place] adapted WHO algorithm. 4. Other Recommendations: All treatment decisions require clinical judgment and consideration of individual patient factors, including patient preferences, comorbidities, previous drug use, risk factors not captured in the FRAX model (e.g. frailty, falls, vitamin D deficiency, increased bone turnover, interval significant decline in bone density) and possible under or overestimation of fracture risk by FRAX. Additional medical evaluation for secondary cause of low bone mineral density may be appropriate. FUTURE SCAN RECOMMENDATION: People with diagnosed cases of osteoporosis or at high risk for fracture should have regular bone mineral density tests. For patients eligible for Medicare, routine testing is allowed once every 2 years. The testing frequency can be increased to one year for patients who have rapidly progressing disease, those who are receiving or discontinuing medical therapy to restore bone mass, or have additional risk factors. Electronically signed by: Rafael Leos MD 03/04/2024 02:12 PM [facility]
--- NOTE | ~2024-03-04 | MM_ITS ---
EXAMINATION: MM SCREENING DIGITAL BREAST TOMOSYNTHESIS, BILATERAL CLINICAL INFORMATION: Screening. Asymptomatic. COMPARISON: Mammography: Comparison is made with available priors TECHNIQUE: Digital breast mammography with tomosynthesis is performed in both the craniocaudal and mediolateral oblique views along with computer-aided detection (CAD). FINDINGS: There are scattered areas of fibroglandular density (ACR BI-RADS breast composition Category b). Focal asymmetry upper outer right breast stable dating back to 2019. There are no significant masses, abnormal calcifications, or other abnormalities. MM/MM tomosynthesis screening BI IMPRESSION: No mammographic evidence of malignancy. ASSESSMENT: BI-RADS BI-RADS 2 - Benign Findings RECOMMENDATION: Routine annual mammography screening. 1 year F/U This examination should not preclude the clinical evaluation of a suspicious palpable abnormality. This patient's information was entered into a reminder system with a target due date for their next mammogram. Electronically signed by: Inessa Arita DO 03/15/2024 10:57 AM [facility]
== END 2024-03-04 10:05 | disposition home or self-care (01) ==
LOC: HO.MAMMO 10:04
PROVIDERS: PCP Internal Medicine; Visit Provider Internal Medicine
DX: Z12.31 Encounter for screening mammogram for malignant neoplasm of breast (principal); Z13.820 Encounter for screening for osteoporosis; Z78.0 Asymptomatic menopausal state; M85.80 Other specified disorders of bone density and structure, unspecified site
CPT/HCPCS: 77063; 77067; 77080

== ENCOUNTER → 2024-03-04 11:15 | Outpatient (BNV) | payer OTHER, SELFPAY | PROVIDERS: PCP Internal Medicine; Visit Provider Internal Medicine | DX: Z12.31 Encounter for screening mammogram for malignant neoplasm of breast (principal) | CPT/HCPCS: 77063; 77067 ==

== ENCOUNTER 2024-04-29 15:31 | Outpatient (REF) | payer OTHER, SELFPAY ==
[2024-05-02 09:19] LABS: TS Negative Control Passed; TS Panel A 2; TS Panel B 0; TS Positive Control Passed; TSpotTB Negative (Negative)
== END 2024-04-29 15:32 | disposition home or self-care (01) ==
LOC: HO.LAB 15:31
PROVIDERS: PCP Internal Medicine; Visit Provider Internal Medicine
DX: Z11.1 Encounter for screening for respiratory tuberculosis (principal)
CPT/HCPCS: 36415; 86481

== ENCOUNTER 2024-07-04 07:56 | Outpatient (AMB) | payer OTHER, SELFPAY ==
--- NOTE | 2024-07-04 08:31 | MHC.PC.OV ---
Vital Signs 07/04/24 08:32 Height 4 ft 9 in Weight 138 lb BMI 29.9 BP 110/60 Blood Pressure Location Lt brachial Position Sitting Intake Visit Reasons: Annual Exam Intake Note: Patient here for an annual physical exam, c/o middle of back pain when laying down Mechanical Handyman Required: Yes Mechanical Handyman Language: Tube Man Name: Chela Mansfield MD Information Interpreted: non-clinical & clinical Accompanied by: Self / Same As Patient Allergies apple [Apple] Allergy (Severe, Verified 07/04/24 08:56) THROAT SWELLING pear [Pear] Allergy (Severe, Verified 07/04/24 08:56) THROAT SWELLING banana [BANANA] Allergy (Intermediate, Verified 07/04/24 08:56) HIVES,THROAT SWELLING latex Allergy (Intermediate, Verified 07/04/24 08:56) Rash nystatin Allergy (Intermediate, Verified 07/04/24 08:56) swelling nuts Allergy (Severe, Uncoded 07/04/24 08:56) anaphylaxis fruits Allergy (Intermediate, Uncoded 07/04/24 08:56) anaphylaxis Medication List - Last Reconciled 07/04/24 by Chela Mansfield MD acetaminophen ER 650 mg PO Q8H PRN 30 days aspirin 81 mg PO DAILY 90 days calcium carbonate 1,200 mg (2 x 600 mg calcium (1,500 mg)) PO DAILY 90 days cetirizine 10 mg PO DAILY PRN 90 days cholecalciferol (vitamin D3) 25 mcg PO DAILY 90 days clotrimazole-betamethasone 1-0.05 % 1 appl topical BID diclofenac sodium 1% 2 grams topical QID 30 days docusate sodium (Colace) 200 mg (2 x 100 mg) PO BEDTIME epinephrine (EpiPen) 0.3 mg (0.3 mL) IM Q4H PRN 30 days lidocaine 5% 1 patch topical DAILY loratadine 10 mg PO QAM PRN magnesium 250 mg PO DAILY 90 days melatonin 5 mg PO BEDTIME PRN 90 days methocarbamol 500 mg PO BID PRN mirabegron ER (Myrbetriq) 25 mg PO DAILY 90 days qxheecjo-ymlbqxy-hsmy-lutein 1 tab PO .once a day 90 days nystatin 1 appl topical DAILY 2 weeks oxyquinoline-sod.lauryl sulfat 0.025-0.01 % 1 ea vaginal 2XW 30 days polyethylene glycol 3350 (Miralax) 17 grams PO DAILY psyllium husk (Metamucil) 1 tbsp PO DAILY Tobacco use date assessed: 07/04/24 Fall risk assessment: No Falls in past year Last assessed Fall Risk: 07/04/24 Dental Screening Dental Screen Date: 07/04/24 Did you have a dental visit in the last 12 months?: No Did you have a dental problem in the last 6 months where you did not have access to dental care?: No Was dental information given to patient?: Patient has dentist HPI HPI Comments History of Present Illness Details The patient is a 79-year-old female presenting for an annual physical examination. She has been diagnosed with osteopenia following a bone density test conducted in February 2024, which showed a lowest T-score of -1.8 in the femoral neck. Her osteopenia management includes calcium and vitamin D supplementation, with follow-up screening due in 2025. Her previous medical procedures include a benign mammogram in February 2024 and a normal colonoscopy in 2020. She is overdue for a Tdap booster as her last immunization was in 2013, however, her pneumococcal vaccination is current. The patient's extensive allergy profile includes apples, pears, bananas, latex, nystatin, nuts, and certain medications like Tylenol. The patient manages urinary incontinence with Myrbetriq, occasional allergies with Cetirizine, insomnia with Melatonin, and constipation with Colace. Surgical history includes cataract surgeries. The patient refrains from smoking and consumes alcohol very rarely. - Tdap vaccine due at this visit - Bone density screening recommended in 2025 - Annual mammogram performed February 2024 - benign - Normal colonoscopy in 2020; next due per standard recommendations - Up-to-date pneumococcal vaccination received at age 62 [facility] Medical History Internal and external thrombosed hemorrhoids Postmenopausal Physical exam Headache Low back pain Seasonal allergies Abdominal gas pain Right shoulder pain Left hip pain Right elbow pain Hypovitaminosis D Chronic constipation Surgical History History of tooth extraction Hx of colonoscopy Hx of cataract extraction Family History Father Throat cancer Mother Cancer of unknown origin Social History Household Members Other:: alone Housing: Apartment Alcohol intake: current Alcohol intake frequency: holidays/special occasions only Alcohol type: wine and hard liquor Patient Tobacco Use Status: Never used Tobacco Tobacco use type: Cigarette e-Cigarette/Vaping Use: Never Used Second Hand Smoke Exposure: No service: No Current occupational status: disabled Cognitive needs: No Hearing needs: Yes Vision needs: Yes Questionnaire PHQ-9 Over the last 2 weeks, how often have you been bothered by any of the following problems? 1. Little interest or pleasure in doing things: not at all 2. Feeling down, depressed, or hopeless: not at all 3. Trouble falling or staying asleep, or sleeping too much: not at all 4. Feeling tired or having little energy: not at all 5. Poor appetite or overeating: not at all 6. Feeling bad about yourself - or that you are a failure or have let yourself or your family down: not at all 7. Trouble concentrating on things, such as reading the newspaper or watching television: not at all 8. Moving or speaking so slowly that other people could have noticed. Or the opposite - being so fidgety or restless that you have been moving around a lot more than usual: not at all 9. Thoughts that you would be better off or of hurting yourself in some way: not at all Total score: 0 Depression Screening Interpretation: Negative Depression Screening Done: Yes 32822 - PHQ-9 Billing: Yes Source: Developed by Drs. Jeronimo De Leon, Joy Dominguez, Adonis Seth and colleagues, with an educational kristal from [employer]. Thrive Questionnaire Date Thrive assessed: 07/04/24 I am a: Patient What is your living situation today?: I have a steady place to live Within the past 12 months, did the food you bought not last and you didn't have the money to get more?: Never true Within the past 12 months, did you worry whether your food would run out before you got money to buy more?: Never true Do you have trouble paying for medicines?: No Do you have trouble getting transportation to medical appointments?: No Do you have trouble paying your heating and electricity bill?: No Do you have trouble taking care of your child, family member or friend?: No Do you have trouble with day-to-day activities such as bathing, preparing meals, shopping, managing finances, etc.?: No Are you currently unemployed and looking for a job?: No Are you interested in more education?: No Please select the resources that you would like help with: None Currently or been in a relationship where the following occur: No concerns reported THRIVE Score: 0 AUDIT C Alcohol Use Questionnaire (AUDIT-C) 1. How often do you have a drink containing alcohol?: Monthly or less 2. How many drinks containing alcohol do you have on a typical day when you are drinking?: 1 or 2 3. How often do you have six or more drinks on one occasion?: Never Total Score: 1 Score Reviewed/Action Taken: No SUSI-7 AMB Questionnaire SUSI-7 Date SUSI - 7 assessed: 07/04/24 Feeling nervous, anxious, or on edge: 1 = Several days Not being able to stop or control worryin = Not at all Worrying too much about different things: 0 = Not at all Trouble relaxin = Not at all Being so restless that it is hard to sit still: 0 = Not at all Becoming easily annoyed or irritable: 0 = Not at all Feeling afraid as if something awful might happen: 0 = Not at all Total SUSI-7 score (0-4 normal; 5-9 mild; 10-14 moderate; 15-21 severe): 1 Source: Developed by Drs. Jeronimo De Leon, Joy Dominguez, Adonis Seth and colleagues, with an educational kristal from [employer]. SUSI-7 Assessment Billing SUSI-7 Assessment Tool: SUSI-7 Assessment 14673 Review of Systems Const All systems reviewed & are unremarkable except as noted in HPI and below Card Denies chest pain at rest, Denies chest pain with activity, Denies edema, Denies irregular heart rhythm, Denies claudication, Denies dyspnea, Denies dyspnea on exertion, Denies orthopnea, Denies paroxysmal nocturnal dyspnea and Denies slow heart rate Resp Denies cough, Denies dyspnea and Denies dyspnea on exertion GI Denies abdominal pain, Denies change in bowel habits, Denies excessive flatus, Denies nausea and Denies vomiting Musc Reports arthralgias Physical exam (Primary Care) Vital Signs: Last Vital Signs BP 110/60 07/04/24 08:32 BMI result Body Mass Index 29.9 Tobacco/Smoking Status: Tobacco use Status Tobacco use date assessed 07/04/24 07/04/24 08:39 Patient Tobacco Use Status Never used Tobacco 07/04/24 08:39 Tobacco use type Cigarette 07/04/24 08:39 e-Cigarette/Vaping Use Never Used 07/04/24 08:39 PHQ-9: PHQ-9 Score PHQ-9: Total score 0 07/04/24 09:10 Depression Screening Interpretation: Negative Thrive Assessment: Date of Thrive Assessment Date Thrive assessed 07/04/24 07/04/24 08:39 Currently or been in a relationship where the following occur: No concerns reported HENMA Head: Yes normal to inspection, Yes normocephalic and Yes atraumatic Ears: external ears normal Eyes General: appearance normal, both eyes and all related structures Eyelids: Yes eyelids normal Conjunctivae: conjunctivae normal Neck Neck: Yes normal visual inspection and Yes supple Resp Effort & Inspection: normal respiratory effort Auscultation: clear to auscultation bilaterally Cardio Jugular venous distension: no JVD Rate: regular rate Rhythm: regular rhythm Heart sounds: S1 normal heart sound present and S2 normal heart sound present GI Inspection: Yes normal to inspection Palpation (GI): Soft to palpation and nontender Auscultation: normal bowel sounds Skin General skin exam: no rashes or lesions noted Neuro General: no focal motor deficits Extrem General: Yes full ROM Psych Appearance: grossly normal Immunizations Boostrix Tdap 2.5 Lf unit-8 mcg-5 Lf/0.5 mL intramuscular syringe Performing Provider: Chela Mansfield MD Performing Location[facility] [place] [facility] Administered by: EDGAR Lane on 07/04/24 09:11 Dose Route Admin Location Dispensed Lot Number Expiration Date [facility] [employer] 0.5 mL IM Left Deltoid 0.5 mL [id number] 08/06/26 51665-806-74 [email or web address] VIS Given Date VIS Provided VIS Publication Date 07/04/24 Single Vaccine 20 Eligibility Eligibility Date Funding Source Not [facility] Eligible 07/04/24 Private Coding Level of Care Code Est Pt Level 3 (77139) Est Pt Prev Care >65y(05085) Diagnoses Physical exam Z00.00 Left leg pain M79.605 PAD (peripheral artery disease) I73.9 Additional Codes SUSI-7 Assessment Billing - SUSI-7 Assessment Tool: SUSI-7 Assessment 97025 ([id number]) PHQ-9 - 36951 - PHQ-9 Billing: Yes ([id number]) Time Spent (min) 33 Assessment & Plan Assessment & Plan (1) Physical exam: Code(s): Z00.00 - Encounter for general adult medical examination without abnormal findings Category: Medical (2) Left leg pain: Code(s): M79.605 - Pain in left leg Category: Medical (3) PAD (peripheral artery disease): Code(s): I73.9 - Peripheral vascular disease, unspecified Category: Medical Plan I will administer a Tdap booster today as she is overdue. She will continue using Myrbetriq for urinary incontinence and Colace for constipation symptoms. Cetirizine will be used as needed for allergy management. I advised continuation of Melatonin for sleep: The patient has comprehensively managed her wide allergy profile with access to an Epipen for emergency use. Her preventative care is checked regularly, and she remains current except for today's Tdap administration. Patient was informed and verbally consented to the use of an ambient scribe for clinic note documentation during this visit. I discussed the importance of calcium and vitamin D to manage her osteopenia and the follow-up bone density screening scheduled for 2025. I informed her of the need for the Tdap booster due today and reassured her about the benign nature of her recent mammogram. We discussed the management and preventive approach for her allergies, including the importance of having an Epipen on hand. I explained the continuation of her current medication regimen, emphasizing the importance of regular screenings like mammograms and colonoscopies. We talked about lifestyle modifications to manage her sleep and incontinence. Orders: Orders Vitamin D 25-OH Total Today E55.9 - Vitamin D deficiency, unspecified Lipid Panel Today E78.5 - Hyperlipidemia, unspecified TDaP Immunization Today Z23 - Encounter for immunization Comprehensive Hardy. Panel Fast Today Z00.00 - Encounter for general adult medical examination without abnormal findings Patient Instructions: - Receive Tdap booster today - Continue calcium and vitamin D supplements - Keep Myrbetriq and Melatonin routines - Use Cetirizine only when allergy symptoms occur - Continue using Colace for constipation management - Schedule bone density screening in 2025 - Keep Epipen available for severe allergic reactions - Follow up with regular preventative care appointments
[2024-07-04 08:32] VITALS: BP 110/60; BMI 29.9
== END 2024-07-04 09:12 | disposition home or self-care (01) ==
LOC: HO.HMCH 07:56
PROVIDERS: PCP Internal Medicine; Visit Provider Internal Medicine
DX: Z00.00 Encounter for general adult medical examination without abnormal findings (principal); M79.605 Pain in left leg; I73.9 Peripheral vascular disease, unspecified; Z23 Encounter for immunization

== ENCOUNTER → 2024-07-04 07:56 | Outpatient (BNVA) | payer OTHER, SELFPAY | PROVIDERS: PCP Internal Medicine; Visit Provider Internal Medicine | DX: Z00.00 Encounter for general adult medical examination without abnormal findings (principal); Z23 Encounter for immunization; M79.605 Pain in left leg; I73.9 Peripheral vascular disease, unspecified | CPT/HCPCS: 90471; 90715; 96127; 99397 ==

== ENCOUNTER 2024-08-04 17:15 | Outpatient (AMB) | payer OTHER, SELFPAY ==
--- NOTE | 2024-08-04 17:18 | A.OFFPC_ITS ---
Vital Signs 08/04/24 17:19 Height 4 ft 9 in Weight 140 lb BMI 30.3 BP 118/70 Blood Pressure Location Lt brachial Position Sitting Intake Visit Reasons: Discuss forms Otolaryngology Teacher Required: No Accompanied by: Self / Same As Patient Allergies apple [Apple] Allergy (Severe, Verified 08/04/24 17:27) THROAT SWELLING pear [Pear] Allergy (Severe, Verified 08/04/24 17:27) THROAT SWELLING banana [BANANA] Allergy (Intermediate, Verified 08/04/24 17:27) HIVES,THROAT SWELLING latex Allergy (Intermediate, Verified 08/04/24 17:27) Rash nystatin Allergy (Intermediate, Verified 08/04/24 17:27) swelling nuts Allergy (Severe, Uncoded 08/04/24 17:27) anaphylaxis fruits Allergy (Intermediate, Uncoded 08/04/24 17:27) anaphylaxis Medication List - Last Reconciled 08/04/24 by Chela Mansfield MD acetaminophen ER 650 mg PO Q8H PRN 30 days aspirin 81 mg PO DAILY 90 days calcium carbonate 1,200 mg (2 x 600 mg calcium (1,500 mg)) PO DAILY 90 days cetirizine 10 mg PO DAILY PRN 90 days cholecalciferol (vitamin D3) 25 mcg PO DAILY 90 days clotrimazole-betamethasone 1-0.05 % 1 appl topical BID diclofenac sodium 1% 2 grams topical QID 30 days docusate sodium (Colace) 200 mg (2 x 100 mg) PO BEDTIME epinephrine (EpiPen) 0.3 mg (0.3 mL) IM Q4H PRN 30 days lidocaine 5% 1 patch topical DAILY loratadine 10 mg PO QAM PRN magnesium 250 mg PO DAILY 90 days melatonin 5 mg PO BEDTIME PRN 90 days methocarbamol 500 mg PO BID PRN mirabegron ER (Myrbetriq) 25 mg PO DAILY 90 days ekalfbbf-amxaxjw-favz-lutein 1 tab PO .once a day 90 days nystatin 1 appl topical DAILY 2 weeks oxyquinoline-sod.lauryl sulfat 0.025-0.01 % 1 ea vaginal 2XW 30 days polyethylene glycol 3350 (Miralax) 17 grams PO DAILY psyllium husk (Metamucil) 1 tbsp PO DAILY Tobacco use date assessed: 07/04/24 Dental Screening Dental Screen Date: 07/04/24 HPI HPI Comments History of Present Illness Details The patient is a 79-year-old female presenting with left hip pain. She experiences significant discomfort when attempting to lift or move the hip, which has restricted her mobility considerably. No recent falls or other injuries have been reported as inciting events. The patient was diagnosed with osteopenia following a bone densitometry test in February 2024, and she is currently under a regimen of calcium and vitamin D. Additionally, the patient suffers from chronic constipation, managed with Colace, Miralax, and Metamucil, and is dealing with urinary incontinence. She also notes having peripheral arterial disease without specific management details provided in this visit. The patient experiences voice tremors and has engaged in speech therapy previously. [facility] Medical History (Updated 08/04/24 @ 17:39 by Chela Mansfield MD) Internal and external thrombosed hemorrhoids Postmenopausal Physical exam Headache Low back pain Seasonal allergies Abdominal gas pain Right shoulder pain Left hip pain Right elbow pain Hypovitaminosis D Chronic constipation Surgical History History of tooth extraction Hx of colonoscopy Hx of cataract extraction Family History Father Throat cancer Mother Cancer of unknown origin Social History Household Members Other:: alone Housing: Apartment Alcohol intake: current Alcohol intake frequency: holidays/special occasions only Alcohol type: wine and hard liquor Patient Tobacco Use Status: Never used Tobacco Tobacco use type: Cigarette e-Cigarette/Vaping Use: Never Used Second Hand Smoke Exposure: No service: No Current occupational status: disabled Cognitive needs: No Hearing needs: Yes Vision needs: Yes Questionnaire Thrive Questionnaire Date Thrive assessed: 07/04/24 SUSI-7 AMB Questionnaire SUSI-7 Date SUSI - 7 assessed: 07/04/24 Source: Developed by Drs. Jeronimo De Leon, Joy Dominguez, Adonis Seth and colleagues, with an educational kritsal from [employer]. Review of Systems Const All systems reviewed & are unremarkable except as noted in HPI and below Card Denies chest pain at rest, Denies chest pain with activity, Denies edema, Denies irregular heart rhythm, Denies claudication, Denies dyspnea, Denies dyspnea on exertion, Denies orthopnea, Denies paroxysmal nocturnal dyspnea and Denies slow heart rate Resp Denies cough, Denies dyspnea and Denies dyspnea on exertion GI Denies abdominal pain, Denies change in bowel habits, Denies excessive flatus, Denies nausea and Denies vomiting Denies urinary incontinence, Denies urinary hesitancy and Denies urinary urgency Musc Denies atrophy, Denies deformity and Denies limited range of motion Physical exam (Primary Care) Vital Signs: Last Vital Signs BP 118/70 08/04/24 17:19 BMI result Body Mass Index 30.3 Tobacco/Smoking Status: Tobacco use Status Tobacco use date assessed 07/04/24 08/04/24 17:25 Patient Tobacco Use Status Never used Tobacco 08/04/24 17:25 Tobacco use type Cigarette 08/04/24 17:25 e-Cigarette/Vaping Use Never Used 08/04/24 17:25 Thrive Assessment: Date of Thrive Assessment Date Thrive assessed 07/04/24 08/04/24 17:25 Resp Effort & Inspection: normal respiratory effort Auscultation: clear to auscultation bilaterally Cardio Jugular venous distension: no JVD Rate: regular rate Rhythm: regular rhythm Heart sounds: S1 normal heart sound present and S2 normal heart sound present GI Inspection: Yes normal to inspection Palpation (GI): Soft to palpation and nontender Auscultation: normal bowel sounds Extrem General: Yes full ROM Coding Level of Care Code Est Pt Level 4 (03239) Complex EM visit Add On G2211 Diagnoses Left shoulder pain M25.512 Voice tremor R49.8 PAD (peripheral artery disease) I73.9 Left hip pain M25.552 Chronic constipation K59.09 Time Spent (min) 23 Assessment & Plan Assessment & Plan (1) Left shoulder pain: Code(s): M25.512 - Pain in left shoulder Category: Medical (2) Voice tremor: Code(s): R49.8 - Other voice and resonance disorders Category: Medical (3) PAD (peripheral artery disease): Code(s): I73.9 - Peripheral vascular disease, unspecified Category: Medical (4) Left hip pain: Code(s): M25.552 - Pain in left hip Category: Medical (5) Chronic constipation: Comment: Pleasant 75-year-old female follows up after recent colonoscopy no polyps. She is very happy. Reinforced importance of High-fiber diet, as well as consistent bowel regimen colace q.h.s., MiraLax We reviewed procedure report avoid straining. hemorrhoidal cream that has been effective. Asymptomatic screening colonoscopy 10 years Encouraged to call questions or concerns Code(s): K59.09 - Other constipation Category: Medical Plan The patient will be referred to an orthopedist for further evaluation of her left hip pain. Diagnostic imaging, such as an X-ray of the hip, will be ordered to better understand the cause of her symptoms. For osteopenia, we will continue her prescribed calcium and vitamin D supplementation. For constipation, the use of Colace, Miralax, and Metamucil will continue, and she should maintain hydration and adequate dietary fiber intake. Her current management of urinary incontinence will persist. A referral to speech therapy is advised for voice tremors to optimize vocal function. Further exploration and management of peripheral arterial disease need consideration. Patient was informed and verbally consented to the use of an ambient scribe for clinic note documentation during this visit. I discussed with the patient the management plan for her left hip pain, including referral to an orthopedist and the need for diagnostic imaging to clarify potential underlying causes. I reviewed the necessity of maintaining calcium and vitamin D supplementation to counteract her osteopenia and reduce the risk of fractures. For her constipation, we emphasized continuing her current medications: Colace, Miralax, and Metamucil, while ensuring adequate hydration and fiber intake. Regarding her urinary incontinence, she is to maintain her current therapy. In addressing her voice tremors, I highlighted the benefit of speech therapy to improve her vocal abilities and quality of life. Further discussions involved some possible impact on management and ongoing evaluation of peripheral arterial disease. Orders: Orders XR hip LT min 2V 08/04/24 M25.552 - Pain in left hip XR shoulder LT min 2V 08/04/24 M25.512 - Pain in left shoulder Referrals Orthopedics Referral M25.512 - Pain in left shoulder Speech and Hearing Referral R49.8 - Other voice and resonance disorders Patient Instructions: - Visit an orthopedist as recommended for your hip pain. - Get an X-ray of your left hip. - Keep taking your calcium and vitamin D supplements. - Continue using Colace, Miralax, and Metamucil for constipation. - Stay hydrated and eat more fiber. - Keep using your medication for urinary incontinence. - Attend speech therapy sessions for voice tremors. - Follow up with me for further care instructions.
[2024-08-04 17:19] VITALS: BP 118/70; BMI 30.3
== END 2024-08-04 17:38 | disposition home or self-care (01) ==
LOC: HO.HMCH 17:15
PROVIDERS: PCP Internal Medicine; Visit Provider Internal Medicine
DX: M25.512 Pain in left shoulder (principal); R49.8 Other voice and resonance disorders; I73.9 Peripheral vascular disease, unspecified; M25.552 Pain in left hip; K59.09 Other constipation

== ENCOUNTER → 2024-08-04 17:15 | Outpatient (BNVA) | payer OTHER, SELFPAY | PROVIDERS: PCP Internal Medicine; Visit Provider Internal Medicine | DX: M25.512 Pain in left shoulder (principal); R49.8 Other voice and resonance disorders; I73.9 Peripheral vascular disease, unspecified; M25.552 Pain in left hip; K59.09 Other constipation | CPT/HCPCS: 99212 ==

== ENCOUNTER 2024-09-27 09:32 | Outpatient (AMB) | payer OTHER, SELFPAY ==
[2024-09-27 09:59] VITALS: BMI 30.3
--- NOTE | 2024-09-27 09:59 | MHC.OFFVIS ---
Vital Signs 09/27/24 09:59 Height 4 ft 9 in Weight 140 lb BMI 30.3 Intake Visit Reasons: Left shoulder pain and weakness Intake Note: Jennifer is a 79 year old left hand dominant female who presents with complaints of progressively worsening left shoulder pain and weakness. She describes her pain as sharp in nature. She did injure his shoulder approximately 1 year ago while lifting a heavy object. Since that time she has had difficulty lifting her left hand above shoulder height. She has tried a home exercise program, physical therapy exercises, Tylenol and anti-inflammatory medicines which gave her minimal relief. She has failed the last 6 weeks of conservative treatment. Distributor Sales Manager Required: Yes Distributor Sales Manager Language: Distribution Center Assistant Services: Distributor Sales Manager Present Distributor Sales Manager Name: EDGAR Cook/QIAN Allergies apple [Apple] Allergy (Severe, Verified 09/27/24 10:08) THROAT SWELLING pear [Pear] Allergy (Severe, Verified 09/27/24 10:08) THROAT SWELLING banana [BANANA] Allergy (Intermediate, Verified 09/27/24 10:08) HIVES,THROAT SWELLING latex Allergy (Intermediate, Verified 09/27/24 10:08) Rash nystatin Allergy (Intermediate, Verified 09/27/24 10:08) swelling nuts Allergy (Severe, Uncoded 09/27/24 10:08) anaphylaxis fruits Allergy (Intermediate, Uncoded 09/27/24 10:08) anaphylaxis Medication List - Last Reconciled 09/27/24 by Preston Davis MD acetaminophen ER 650 mg PO Q8H PRN 30 days aspirin 81 mg PO DAILY 90 days calcium carbonate 1,200 mg (2 x 600 mg calcium (1,500 mg)) PO DAILY 90 days cetirizine 10 mg PO DAILY PRN 90 days cholecalciferol (vitamin D3) 25 mcg PO DAILY 90 days clotrimazole-betamethasone 1-0.05 % 1 appl topical BID docusate sodium (Colace) 200 mg (2 x 100 mg) PO BEDTIME epinephrine (EpiPen) 0.3 mg (0.3 mL) IM Q4H PRN 30 days loratadine 10 mg PO QAM PRN magnesium 250 mg PO DAILY 90 days melatonin 5 mg PO BEDTIME PRN 90 days mirabegron ER (Myrbetriq) 25 mg PO DAILY 90 days chwymzuu-oeghjqp-wouv-lutein 1 tab PO .once a day 90 days polyethylene glycol 3350 (Miralax) 17 grams PO DAILY PFSH Medical History Internal and external thrombosed hemorrhoids Postmenopausal Physical exam Headache Low back pain Seasonal allergies Abdominal gas pain Right shoulder pain Left hip pain Right elbow pain Hypovitaminosis D Chronic constipation Surgical History History of tooth extraction Hx of colonoscopy Hx of cataract extraction Family History Father Throat cancer Mother Cancer of unknown origin Social History Household Members Other:: alone Housing: Apartment Alcohol intake: current Alcohol intake frequency: holidays/special occasions only Alcohol type: wine and hard liquor Patient Tobacco Use Status: Never used Tobacco Tobacco use type: Cigarette e-Cigarette/Vaping Use: Never Used Second Hand Smoke Exposure: No service: No Current occupational status: disabled Cognitive needs: No Hearing needs: Yes Vision needs: Yes Physical Exam Vital Signs: BMI result Body Mass Index 30.3 Const Other: Well-nourished well-developed very friendly female awake alert and oriented x3 in no acute distress Extrem Other: Bilateral upper extremity examination shows good capillary refill, no skin lesions noted, normal sensation light touch Left shoulder examination shows decreased range of motion when compared to her right shoulder, 4/5 strength with supraspinatus testing, positive impingement signs, no instability Results Reviewed Results Reviewed: X-rays of the patient's left shoulder show severe acromioclavicular joint narrowing, a type 2 acromion, no acute bony abnormalities Assessment & Plan Assessment & Plan (1) Rotator cuff insufficiency of left shoulder: Code(s): M25.312 - Other instability, left shoulder Category: Medical Plan Ms. Joel Welch presents with progressively worsening left shoulder pain and weakness due to impingement syndrome and possible rotator cuff tearing. Thus, I will send the patient for an MRI of her left shoulder for further evaluation. I will see her back once the MRI is completed to discuss the findings and treatment options. She will continue with her xilqu-cy-cudwpk exercises in the meantime to prevent stiffness. Feel free to call me at any time should questions regarding her orthopedic management arise. I spent 20 minutes in reviewing the patient's records and imaging studies, seeing the patient and documenting in the medical record. Orders: Orders MR shoulder LT wo con Today M25.312 - Other instability, left shoulder Coding Level of Care Code New Pt Level 3 (33953) Complex EM visit Add On G2211 Diagnoses Rotator cuff insufficiency of left shoulder M25.312
--- OUTSIDE RECORDS SUMMARY | 2024-09-27 10:30 | XMS_ITS | Encounter Summary ---
Author Organization [facility] Address [address] [place] [address] Care Team Providers Care Claims Investigator Name Role Phone Timothy Obdulio HATHAWAY Primary Care Provider Unavail able Encounter Details Date Type Department Care Team (Late Contact Info) Description 06/19/2022 Abstract [facility] [address] [place], [place] [phone] Johnnie Baca, ZACH [address] [place], [place] [phone] Social History Tobacco Use Types Packs/Day Years Used Date Smoking Tobacco: Never Passive Smoke Exposure: Never Smokeless Tobacco: Never Alcohol Use Standard Drinks/Week Comments Never 0 (1 standard drink = 0.6 oz pur e alcohol) Comments Unknown Sex and Gender Information Value Date Recorded Sex Assigned at Female 02/17/2022 10:14 AM EDT Legal Sex Female 10:14 AM EDT Gender Identity Female 02/17/2022 10:14 AM EDT Sexual Orientation Straight 02/17/2022 10 :14 AM EDT COVID-19 Exposure Response Date Recorded In the last 10 days, have yo u been in contact with someone who was confirmed or suspected to have Coronavirus/COVID-19? No / Unsure 06/13/2022 12:45 PM EST documented as of this encounter Plan of Treatment Upcoming Encounters Date Type Department Care Team (Late Contact Info) Description 12/27/2024 10:00 AM EDT Office Visit [facility] [address] [place], [place] [phone] María Cervanets [address] [place], [place] [phone] documented as of this encounter Visit Diagnoses Not on filedocumented in this encounter Care Teams Claims Investigator Relationship Specialty Start Date End Date Obdulio Aguirre AGNP PCP - General Family Medicine 01/28/22 12/28/22 documented as of this encounter
== END 2024-09-27 10:23 | disposition home or self-care (01) ==
LOC: HO.HOS 09:33
PROVIDERS: PCP Internal Medicine; Visit Provider Orthopaedic Surgery
DX: M25.312 Other instability, left shoulder (principal)
CPT/HCPCS: 99203; G2211

== ENCOUNTER → 2024-09-27 09:32 | Outpatient (BNVA) | payer OTHER, SELFPAY | PROVIDERS: PCP Internal Medicine; Visit Provider Orthopaedic Surgery | DX: M25.312 Other instability, left shoulder (principal) | CPT/HCPCS: 99202 ==

== ENCOUNTER → 2024-10-06 09:35 | Outpatient (BNV) | payer OTHER, SELFPAY | PROVIDERS: PCP Internal Medicine; Visit Provider Radiology Diagnostic Radiology | DX: M75.102 Unspecified rotator cuff tear or rupture of left shoulder, not specified as traumatic (principal) | CPT/HCPCS: 73221 ==

== ENCOUNTER 2024-10-06 09:43 | Outpatient (REF) | payer OTHER, SELFPAY ==
--- NOTE | ~2024-10-06 | XR_ITS ---
Exam: AP and lateral x-rays of the pelvis. INDICATION: Preoperative screening Prior: December 24, 2022 FINDINGS: Mild degenerative changes are present in the hips with acetabular roof osteophytes. SI and pubic symphysis joint and adjacent minimal degenerative change. There is a normal bowel gas pattern. Soft tissue calcification is present lateral to the greater trochanter. No metallic foreign body is present. Degenerative disc disease and facet arthropathy is noted in the lower lumbar spine. XR/XR pre mri screening IMPRESSION: No metallic foreign body. Electronically signed by: Josafat Adler MD 10/06/2024 10:41 AM EDT
--- NOTE | ~2024-10-06 | MR_ITS ---
EXAMINATION: MR SHOULDER WITHOUT CONTRAST, LEFT TECHNIQUE: Multiplanar multisequence imaging through an upper extremity joint without contrast. INDICATION: Limited range of motion, positional pain, x couple years , worsening PRIOR: None FINDINGS: Rotator Cuff: There is a partial-thickness undersurface tear near the footprint involving rotator cuff in the region where supraspinatus and infraspinatus tendons overlap. Tear possibly extends full-thickness into supraspinatus tendon. Subscapularis and infraspinatus tendons are intact. Labrum: Labrum appears intact. Long biceps tendon: The long biceps tendon is intact and not displaced from the groove. Acromioclavicular joint: AC joint is intact and not degenerated. There is borderline increased fluid in the subacromial subdeltoid bursa. Acromial morphology is flat, type I. There is a moderate-sized subacromial spur. Axillary pouch: The axillary pouch is intact. Articular cartilage: There are no articular cartilage defects. Bones/Marrow: There are no marrow replacing lesions. Soft tissues: There is no fatty streaking, muscle atrophy, or muscle edema. There is no axillary adenopathy. MR/MR shoulder LT wo con IMPRESSION: There is a deep undersurface tear of rotator cuff near the footprint where supraspinatus and infraspinatus tendons overlap. Tear may extend full-thickness into supraspinatus tendon. Borderline subacromial subdeltoid bursal effusion. Moderate size subacromial spur. Type I acromion, flat. Electronically signed by: Josafat Adler MD 10/06/2024 11:28 AM EDT
--- OUTSIDE RECORDS SUMMARY | 2024-10-06 10:43 | XMS_ITS | Encounter Summary ---
Author Organization [facility] Address [address] [facility] [address] [place] [address] Care Team Providers Care Junior Programmer Name Role Phone Timothy Obdulio HATHAWAY Primary Care Provider Unavail able Encounter Details Date Type Department Care Team (Late Contact Info) Description 06/19/2022 Abstract [facility] [address] [place], [place] [phone] Johnnie Baca, ZACH [address] [place], [place] [phone] Social History Tobacco Use Types Packs/Day Years [...] Description 12/27/2024 10:00 AM EDT Office Visit [facility] [address] [place], [place] [phone] María Cervantes [address] [place], [place] [phone] documented as of this encounter Visit Diagnoses Not on filedocumented in this encounter Care Teams Junior Programmer Relationship Specialty Start Date End Date Obdulio Aguirre AGNP PCP - General Family Medicine 01/28/22 12/28/22 documented as of this encounter
[2024-10-06 13:01] LABS: Alanine Aminotransferase 16 U/L (0-31); Albumin Level 4.1 g/dL (3.5-5.0); Alkaline Phosphatase 104 U/L (39-117); Anion Gap 11 (12-20); Aspartate Amino Transferase 27 U/L (5-31); Bilirubin Total 0.4 mg/dL (0.0-1.0); Blood Urea Nitrogen 10 mg/dL (9-16); Carbon Dioxide 28 mmol/L (22-29); Chloride 108 mmol/L (96-108); Cholesterol 164 mg/dL (<200); Estimated Glomerular Filt Rate > 60; Glucose Fasting 90 mg/dL (60-99); HDL Cholesterol 46 mg/dL (>40); LDL Cholesterol Calculated 88 mg/dL (<100); Potassium 3.9 mmol/L (3.3-5.1); Sodium 143 mmol/L (135-145); Total Protein 7.4 g/dL (6.5-8.0); Triglycerides 150 mg/dL (<150)
[2024-10-06 13:16] LABS: Vitamin D 25-OH Total 32.9 ng/mL (>30)
== END 2024-10-06 09:44 | disposition home or self-care (01) ==
LOC: HO.MRI 09:43
PROVIDERS: PCP Internal Medicine; Visit Provider Orthopaedic Surgery
DX: M25.312 Other instability, left shoulder (principal); E55.9 Vitamin D deficiency, unspecified; E78.5 Hyperlipidemia, unspecified; Z00.00 Encounter for general adult medical examination without abnormal findings
CPT/HCPCS: 36415; 73221; 80053; 80061; 82306

== ENCOUNTER 2024-10-19 10:28 | Outpatient (AMB) | payer OTHER, SELFPAY ==
--- NOTE | 2024-10-19 10:34 | A.OFFVIS_ITS ---
Vital Signs 10/19/24 10:37 Height 4 ft 9 in Weight 140 lb BMI 30.3 Intake Visit Reasons: OV-Lt shoulder MRI review Intake Note: Jennifer is a 79 year old female who presents today for a MRI review of the left shoulder. She describes her left shoulder pain as achy in nature. Most of the pain is along the lateral aspect of her shoulder. She denies any weakness. She has tried Tylenol and anti-inflammatory medicines which gave her only mild relief. She wishes to hold off on surgery if at all possible. Gate Cutter Required: Yes Gate Cutter Language: Client Retention Specialist Name: EDGAR Cook/QIAN Allergies apple (Apple) Allergy (Severe, Verified 10/19/24 10:36) THROAT SWELLING pear (Pear) Allergy (Severe, Verified 10/19/24 10:36) THROAT SWELLING banana (BANANA) Allergy (Intermediate, Verified 10/19/24 10:36) HIVES,THROAT SWELLING latex Allergy (Intermediate, Verified 10/19/24 10:36) Rash nystatin Allergy (Intermediate, Verified 10/19/24 10:36) swelling nuts Allergy (Severe, Uncoded 10/19/24 10:36) anaphylaxis fruits Allergy (Intermediate, Uncoded 10/19/24 10:36) anaphylaxis Medication List - Last Reconciled 10/19/24 by Preston Davis MD acetaminophen ER 650 mg PO Q8H PRN 30 days aspirin 81 mg PO DAILY 90 days calcium carbonate 1,200 mg (2 x 600 mg calcium (1,500 mg)) PO DAILY 90 days cetirizine 10 mg PO DAILY PRN 90 days cholecalciferol (vitamin D3) 25 mcg PO DAILY 90 days clotrimazole-betamethasone 1-0.05 % 1 appl topical BID docusate sodium (Colace) 200 mg (2 x 100 mg) PO BEDTIME epinephrine (EpiPen) 0.3 mg (0.3 mL) IM Q4H PRN 30 days loratadine 10 mg PO QAM PRN magnesium 250 mg PO DAILY 90 days melatonin 5 mg PO BEDTIME PRN 90 days mirabegron ER (Myrbetriq) 25 mg PO DAILY 90 days yltjztoq-nosewmo-ensy-lutein 1 tab PO .once a day 90 days polyethylene glycol 3350 (Miralax) 17 grams PO DAILY [facility] Medical History Internal and external thrombosed hemorrhoids Postmenopausal Physical exam Headache Low back pain Seasonal allergies Abdominal gas pain Right shoulder pain Left hip pain Right elbow pain Hypovitaminosis D Chronic constipation Surgical History History of tooth extraction Hx of colonoscopy Hx of cataract extraction Family History Father Throat cancer Mother Cancer of unknown origin Social History Household Members Other:: alone Housing: Apartment Alcohol intake: current Alcohol intake frequency: holidays/special occasions only Alcohol type: wine and hard liquor Patient Tobacco Use Status: Never used Tobacco Tobacco use type: Cigarette e-Cigarette/Vaping Use: Never Used Second Hand Smoke Exposure: No service: No Current occupational status: disabled Cognitive needs: No Hearing needs: Yes Vision needs: Yes Physical Exam Vital Signs: BMI result Body Mass Index 30.3 Const Other: Well-nourished well-developed very friendly female awake alert and oriented x3 in no acute distress Extrem Other: Left shoulder examination shows decreased range of motion when compared to her right shoulder, 4+ out of 5 strength with supraspinatus testing, positive impingement signs, tenderness over her acromioclavicular joint, no instability Results Reviewed Results Reviewed: MRI of the patient's left shoulder show severe acromioclavicular joint narrowing, a type 2 acromion, signal change within the supraspinatus tendon most likely due to rotator cuff tendinosis Assessment & Plan Assessment & Plan (1) Impingement syndrome of left shoulder: Code(s): M75.42 - Impingement syndrome of left shoulder Category: Medical Plan Ms. Joel Welch presents with left shoulder pain due to impingement syndrome. I had a lengthy discussion with the patient regarding the treatment options. She wishes to hold off on surgery if at all possible. I agree with this plan. I did give her a prescription for a Medrol Dosepak. I also referred her to our physical therapy department. The do's and don'ts of lifting were discussed at length with the patient. We will hold off on a cortisone injection at this time. She will follow up with me on an as-needed basis should her symptoms not plateau at an unacceptable level over the next few months. Feel free to call me at any time should questions regarding her orthopedic management arise. I spent 21 minutes in reviewing the patient's records and imaging studies, seeing the patient and documenting in the medical record. Orders: Orders PT Evaluation and Treatment Today M75.42 - Impingement syndrome of left shoulder Medications: New methylprednisolone (Medrol (Chapito)) PO PER PKG DIR 21 ea 0RF Coding Level of Care Code Est Pt Level 3 (36468) Complex EM visit Add On G2211 Diagnoses Impingement syndrome of left shoulder M75.42
[2024-10-19 10:37] VITALS: BMI 30.3
--- OUTSIDE RECORDS SUMMARY | 2024-10-19 11:05 | XMS_ITS | Encounter Summary ---
Author Organization [facility] Address [address] [place] [address] Care Team Providers Care Capacity Manager Name Role Phone Chela Mansfield MD Primary Care Provider [phone] Encounter Details Date Type Department Care Team (Late st Contact Info) Description 08/08/[address] [facility] - Main Lab [address] [facility] [place] [address] Maricel Clemente PA [address] [place], [place] [phone] Urinary tract infection, site not specified; Dysuria Social History Tobacco Use Types Packs/Day Years Used Date Smoking Tobacco: Never Smokeless Tobacco: Never Alcohol Use Standard Drinks/Week Comments Yes 0 (1 standard drink = 0.6 oz pur e alcohol) Comments Unknown Sex and Gender Information Value Date Recorded Sex Assigned at Not on file Legal Sex Female 10:25 AM EST Gender Identity Not on file Sexual Orientation Not on file documented as of this encounter Plan of Treatment Not on file documented as of this encounter Procedures Procedure Name Priority Date/Time Associated Diagnosis Comments CULTURE URINE Routine 08/08/2024 9:45 AM EDT Urinary tract infection, site not specified Dysuria documented in this encounter Results * Culture urine (08/08/2024 9:45 AM EDT) Culture, Urine No growth 08/09/2024 10:21 AM EDT [facility] Urine Urine specimen obtained by clean catch procedure / Unknown 08/08/2024 9:45 AM EDT 08/08/2024 12:13 PM EDT us Maricel [facility] MICROBIOLOGY - GENERAL ORD ERABLES Final Result [facility] [address] [place] [address], documented in this encounter Visit Diagnoses Diagnosis Urinary tract infection, site not specified Dysuria documented in this encounter Care Teams Capacity Manager Relationship Specialty Start Date End Date Chela Mansfield MD [address] [facility] , [address] [place] [address] Physician Associ D/B/A: [facility] MICHELLE Alvarado PCP - General Internal Medicine 11/16/20 documented as of this encounter
--- OUTSIDE RECORDS SUMMARY | 2024-10-19 11:05 | XMS_ITS | Encounter Summary ---
Author Organization [facility] Address [address] [facility] [address] [place] [address] Care Team Providers Care Poultry Scalder Name Role Phone Timothy Obdulio HATHAWAY Primary Care Provider Unavail able Encounter Details Date Type Department Care Team (Late Contact Info) Description 06/19/2022 Abstract [facility] [address] [place], [place] [phone] Johnnie Baca, ZACH [address] [place], [place] [phone] Social History Tobacco Use Types Packs/Day Years [...] Description 12/27/2024 10:00 AM EDT Office Visit [facility] [address] [place], [place] [phone] María Cervantes [address] [place], [place] [phone] documented as of this encounter Visit Diagnoses Not on filedocumented in this encounter Care Teams Poultry Scalder Relationship Specialty Start Date End Date Obdulio Aguirre AGNP PCP - General Family Medicine 01/28/22 12/28/22 documented as of this encounter
== END 2024-10-19 11:04 | disposition home or self-care (01) ==
LOC: HO.HOS 10:28
PROVIDERS: PCP Internal Medicine; Visit Provider Orthopaedic Surgery
DX: M75.42 Impingement syndrome of left shoulder (principal)
CPT/HCPCS: 99213; G2211

== ENCOUNTER → 2024-10-19 10:28 | Outpatient (BNVA) | payer OTHER, SELFPAY | PROVIDERS: PCP Internal Medicine; Visit Provider Orthopaedic Surgery | DX: M75.42 Impingement syndrome of left shoulder (principal) | CPT/HCPCS: 99212 ==

== ENCOUNTER 2024-11-03 08:47 | Outpatient (AMB) | payer OTHER, SELFPAY ==
[2024-11-03 08:59] VITALS: BMI 30.3
--- NOTE | 2024-11-03 08:59 | A.OFFVIS_ITS ---
Vital Signs 11/03/24 08:59 Height 4 ft 9 in Weight 140 lb BMI 30.3 Intake Visit Reasons: New prob- RT index & RT ring trigger finger Intake Note: Jennifer 79 yr old left hand dominant zambian speaking female presents today for a new problem visit for her right index and ring finger. States when she makes a fist her fingers catch and lock. States this is painful and cause discomfort when doing daily life activities. Patient reports this started about 1-2 months ago and has not improved. Denies numbness, tingling or any injury. Production Support Developer Name: Radha GARSIA/QIAN Allergies apple (Apple) Allergy (Severe, Verified 11/03/24 09:02) THROAT SWELLING pear (Pear) Allergy (Severe, Verified 11/03/24 09:02) THROAT SWELLING banana (BANANA) Allergy (Intermediate, Verified 11/03/24 09:02) HIVES,THROAT SWELLING latex Allergy (Intermediate, Verified 11/03/24 09:02) Rash nystatin Allergy (Intermediate, Verified 11/03/24 09:02) swelling nuts Allergy (Severe, Uncoded 11/03/24 09:02) anaphylaxis fruits Allergy (Intermediate, Uncoded 11/03/24 09:02) anaphylaxis HPI HPI New prob- RT index & RT ring trigger finger: Details: Jennifer 79 yr old left hand dominant zambian speaking female presents today for a new problem visit for her right index and ring finger. States when she makes a fist her fingers catch and lock. States this is painful and cause discomfort when doing daily life activities. Patient reports this started about 1-2 months ago and has not improved. Denies numbness, tingling or any injury. [facility] Medical History Internal and external thrombosed hemorrhoids Postmenopausal Physical exam Headache Low back pain Seasonal allergies Abdominal gas pain Right shoulder pain Left hip pain Right elbow pain Hypovitaminosis D Chronic constipation Surgical History History of tooth extraction Hx of colonoscopy Hx of cataract extraction Family History Father Throat cancer Mother Cancer of unknown origin Social History Household Members Other:: alone Housing: Apartment Alcohol intake: current Alcohol intake frequency: holidays/special occasions only Alcohol type: wine and hard liquor Patient Tobacco Use Status: Never used Tobacco Tobacco use type: Cigarette e-Cigarette/Vaping Use: Never Used Second Hand Smoke Exposure: No service: No Current occupational status: disabled Cognitive needs: No Hearing needs: Yes Vision needs: Yes Review of Systems Const All systems reviewed & are unremarkable except as noted in HPI and below Physical Exam Vital Signs: BMI result Body Mass Index 30.3 Extrem Other: Patient is alert, oriented, and in no acute distress. Neuro: Normal sensation of the tips of all digits of the right hand at this time Vascular: Cap refill brisk Pain: Tenderness to palpation of the A1 pulleys of the right index and ring fingers Pain associated with locking and catching ROM: There is visible and palpable locking and catching of the right index and ring fingers in the office today Range of motion of other digits of the right hand full and intact Skin: No lacerations or abrasions. General: No ecchymosis, erythema, or evidence of infection. Psych: Appears grossly normal Affect normal Attitude cooperative Office Procedures AMB Tendon Injection Tendon Injection [id number] Tendon Sheath Injection All charges added?: Procedure code (CPT) selection complete Assessment & Plan Assessment & Plan (1) Trigger finger, right ring finger: Code(s): M65.341 - Trigger finger, right ring finger Category: Medical (2) Trigger finger, right index finger: Code(s): M65.321 - Trigger finger, right index finger Category: Medical Plan 1. Trigger finger, right ring finger Patient is educated about this condition Patient is educated about the treatment options available Patient would like to proceed with steroid injection at this time The risks and benefits of a steroid injection including but not limited to risk of damage to blood vessels, nerves, tendons, infection, skin bleaching, failure to improve symptoms, increased pain, and possible need for further injections or other intervention were discussed with the patient and the patient wishes to proceed with the steroid injection. Once consent was obtained, I sterilely prepped the area over the A1 hannah of the flexor tendon sheath of the right ring finger. I then injected the flexor tendon sheath with a combination of 1 mL of dexamethasone (4mg/ml), and 1% lidocaine. The patient tolerated the procedure well with no complications. If the patient continues to have locking and catching 4-6 weeks following this injection, they may call to schedule appointment to discuss alternative treatment options Patient initially consent to trigger injection of the right index finger as well, but after 1st injection she states that it was too painful and would not like to do a 2nd injection today. Patient states that if the injection she was given today is effective, she will return for injection for the ring finger Follow-up prn Coding Level of Care Code New Pt Level 3 (91837) Diagnoses Trigger finger, right ring finger M65.341 Trigger finger, right index finger M65.321 CPT Codes Tendon Injection - Tendon Injection 1: [id number] Tendon Sheath Injection ([id number])
--- OUTSIDE RECORDS SUMMARY | 2024-11-03 08:59 | XMS_ITS | Encounter Summary ---
Author Organization [employer] Address [address] [place] [address] Care Team Providers Care Die Lay Out Worker Name Role Phone Chela Mansfield MD Primary Care Provider [phone] Encounter Details Date Type Department Care Team (Late st Contact Info) Description 08/08/2024 Lab Requisition [facility] - Main Lab [address] [facility] [place] [address] Maricel Clemente PA [address] [place], [place] [phone] Urinary tract infection, site not specified; Dysuria [...] Urine No growth 08/09/2024 10:21 AM EDT [facility] Urine Urine specimen obtained by clean catch procedure / Unknown 08/08/2024 9:45 AM EDT 08/08/2024 12:13 PM EDT us Maricel [facility] MICROBIOLOGY - GENERAL ORD ERABLES Final Result [facility] [address] [place] [address], documented in this encounter Visit Diagnoses Diagnosis Urinary tract infection, site not specified Dysuria documented in this encounter Care Teams Die Lay Out Worker Relationship Specialty Start Date End Date Chela Mansfield MD [address] [facility] , [address] [place] [address] Physician Associ D/B/A: [facility] MICHELLE Alvarado PCP - General Internal Medicine 11/16/20 documented as of this encounter
--- OUTSIDE RECORDS SUMMARY | 2024-11-03 08:59 | XMS_ITS | Encounter Summary ---
Author Organization [facility] Address [address] [facility] [address] [place] [address] Care Team Providers Care Extruder Operator Multiple Name Role Phone Timothy Obdulio HATHAWAY Primary Care Provider Unavail able Encounter Details Date Type Department Care Team ([facility] Contact Info) Description 06/19/2022 Abstract [facility] [address] [place], [place] [phone] Johnnie Baca, ZACH [address] [place], [place] [phone] Social History Tobacco Use Types Packs/Day Years [...] Description 12/27/2024 10:00 AM EDT Office Visit [facility] [address] [place], [place] [phone] María Cervantes [address] [place], [place] [phone] documented as of this encounter Visit Diagnoses Not on filedocumented in this encounter Care Teams Extruder Operator Multiple Relationship Specialty Start Date End Date Obdulio Aguirre AGNP PCP - General Family Medicine 01/28/22 12/28/22 documented as of this encounter
== END 2024-11-03 09:45 | disposition home or self-care (01) ==
LOC: HO.HOS 08:47
PROVIDERS: PCP Internal Medicine
DX: M65.341 Trigger finger, right ring finger (principal); M65.321 Trigger finger, right index finger
CPT/HCPCS: 20550; 99213

== ENCOUNTER → 2024-11-03 08:47 | Outpatient (BNVA) | payer OTHER, SELFPAY | PROVIDERS: PCP Internal Medicine | DX: M65.341 Trigger finger, right ring finger (principal); M65.321 Trigger finger, right index finger; Z79.52 Long term (current) use of systemic steroids | CPT/HCPCS: 20550; 99212; J1100; J2003 ==

== ENCOUNTER 2024-12-07 10:00 | Outpatient (RCR) | payer OTHER, SELFPAY ==
--- NOTE | 2024-11-28 13:55 | MHC.PT.EP ---
[facility] [place] Office [place] Office [place] Office [address] Mitesh Monge [address] [phone] F: [phone] F: [phone] F: [phone] F: [phone] Physical Therapy Plan of Care Date of Evaluation: 11/28/24 Date of Surgery: NA Diagnosis: Impingement syndrome of L shoulder Assessment: Jennifer is a 79 year old female who is referred to PT for impingement syndrome of L shoulder . She reports of having pain in L shoulder for a few months. She denies any trauma or falls. Her pain is better but still present. On PT examination she presents with 0/10 pain at rest 3/10 pain with reaching behind back, L SL, carrying weights and over head activities, decreased L shoulder ROM, decreased L shoulder and scap strength, altered posture and positive Hawkin lucia and empty can test. She lives alone and is independent with self care activities. Family assists her with IADLS. She has pain with self care activities. She would benefit from skilled PT to address the aforementioned impairments and improve tolerance to functional activities. Frequency and Duration: The patient will be seen 2/week for 5 weeks Short Term Goals: 1. Pt will have 50% decrease in pain which will enable her to tolerate sleeping on L side in 2 weeks 2. Pt will be able to move her L shoulder through full plane of motion without pain which will enable her to dress her upper body in 3 weeks Nursing Home Goals: 1. Pt will demonstrate an increase in muscle strength by 1 grade which will enable her to clean and cook without pain in 5 weeks 2. Pt will be independent with all HEP for symptom management and maintenance following d/c in 5 weeks. Treatment Plan: Modalities to reduce pain, spasms and effusion. Manual therapy to restore motion and function. Therapeutic exercise to improve strength and flexibility. Neuromuscular re-education for posture and balance. Therapeutic activities to return to functional activities of daily living. Electronically signed by: Nichol Verma PT DPT Please sign and return to therapist. Thank you for your referral.
--- NOTE | 2025-01-02 13:20 | MHC.PT.DC ---
[facility] [place] Office [place] Office [place] Office [address] [phone] F: [phone] F: [phone] F: [phone] F: [phone] Physical Therapy Discharge Report Diagnosis: Impingement syndrome of L shoulder Date of Surgery: NA Date of Evaluation: 11/28/24 Date of Discharge: 01/02/25 Treatments to Date: 3 Cancellations to Date: 0 No Shows to Date: 0 Discharge Status: Patient Elected to Stop Discharge Summary: Jennifer attended 3 PT visits and canceled her last 2 stating she was sick. She has not called back to re-schedule them in the last 3 weeks. She is therefore being d/c from PT. Electronically signed by: Nichol Verma PT DPT Please sign and return to therapist. Thank you for your referral.
== END 2025-01-02 13:20 | disposition home or self-care (01) ==
LOC: HO.PT 10:00
PROVIDERS: PCP Internal Medicine; Visit Provider Orthopaedic Surgery
DX: M75.42 Impingement syndrome of left shoulder (principal)
CPT/HCPCS: 97110; 97161

== ENCOUNTER 2024-12-28 08:04 | Outpatient (REF) | payer OTHER, SELFPAY ==
--- OUTSIDE RECORDS SUMMARY | 2024-12-27 10:00 | XMS_ITS | Encounter Summary ---
Author Organization [employer] Address [address] [place] [address] [address] [place] [address] Care Team Providers Care Lye Treater Name Role Phone Unavailable Primary Care Provider Unavailabl e Reason for Visit * Reason Comments Routine Cleaning Dental Exam x-rays Perio chart Encounter Details Date Type Department Care Team ([facility] st Contact Info) Description 12/27/2024 10:00 AM EDT Office Visit [facility] ADULT DENTAL [address] [place] [address] María Cervantes [address] [place] [address] Partial edentulism, unspecified edentulism class (Primary Dx); Dental plaque; Tipped teeth; Localized gingival recession; Ill-fitting dentures Social History Tobacco Use Types Packs/Day Years [...] Orientation Straight 02/17/2022 10 :14 AM EDT documented as of this encounter Last Filed Vital Signs Vital Sign Reading Time Taken Comments Blood Pressure 122/72 12/27/2024 9:45 AM EDT Pulse - - Temperature - - Respiratory Rate - - Oxygen Saturation - - Inhaled Oxygen Concentration - - Weight - - Height - - Body Mass Index - - documented in this encounter Progress Notes * María Cervantes - 12/27/2024 10:00 AM EDT Patient ID: Jennifer Welch is a 79 y.o. female. Time Out: Timeout Date: 12/27/24, Timeout Time: 950 (X-rays, Perio chart, Prophy, P. exam with Dr. Smalls) Location: [facility] Tooth: Maxilla and Mandible Procedure: P. Exam and denture adjustment by Dr. Smalls, FMX, Perio chart, prophy, fluoride tx. Verified the above with patient, chemist assistant, and provider. Confirmed via patient's chart, intraorally and by radiographs. Press Manager: not applicable Medical Hx: Vitals: Blood pressure 122/72. Medications, Med Hx reviewed with patient and updated in chart. Treatment Provided Dental procedures in this visit D0210 - INTRAORAL - COMPLETE SERIES OF RADIOGRAPHIC IMAGES (Completed) Service provider: María Velazquez provider: Francois Smalls DDS D9450 - CASE PRESENTATION, DETAILED AND EXTENSIVE TREATMENT PLANNING (Completed) Service provider: María Velazquez provider: Francois Smalls DDS D1110 - PROPHYLAXIS - ADULT (Completed) Service provider: María Velazquez provider: Francois Smalls DDS D1330 - ORAL HYGIENE INSTRUCTIONS (Completed) Service provider: María Velazquez provider: Francois Smalls DDS D1206 - TOPICAL APPLICATION OF FLUORIDE VARNISH (Completed) Service provider: María Velazquez provider: SARA Diaz Dr. did exam and adjusted maxillary and mandibular partials, Dr. Smalls suggested Pt used Fixodent denture paste for the LR quad flange to assure the partial doesn't rock when chewing. Gave a sample of Fixodent. Instruments Used: Ultrasonic Scalers and Prophy angle Fluoride: 5% NaF varnish applied and POI given Oral Cancer Screening: No lesions Head/Neck Exam: No Lesions Calculus: None Plaque: trace Stain: None Bleeding: None Gingiva: pink, [id number] recession OH: Good Perio Chart: Completed Oral hygiene instructions provided to patient including brushing technique and flossing. Recommendations: [place] two times daily, modified joshi technique, Floss daily, Electric toothbrush, Soft bristle toothbrush, [place] Tongue, Anti-sensitivity toothpaste, OTC mouthwash with fluoride. Fixodent paste for LR partial denture flange. Recall Frequency: 6 mo Prophy, Fluoride NV: Dr. Smalls EXO #12. Pt will think about this appoint, since #12 no longer hurts. Pt may be cancelling this appoint. Hygienist: María Cervantes RDH * Francois Smalls DDS - 12/27/2024 10:00 AM EDT Dental procedures in this visit D0210 - INTRAORAL - COMPLETE SERIES OF RADIOGRAPHIC IMAGES (Completed) Service provider: María Cervantes Billing provider: Francois Smalls DDS D9450 - CASE PRESENTATION, DETAILED AND EXTENSIVE TREATMENT PLANNING (Completed) Service provider: María Cervantes [place] provider: Francois Smalls DDS D1110 - PROPHYLAXIS - ADULT (Completed) Service provider: María Cervantes [place] provider: Francois Smalls DDS D1330 - ORAL HYGIENE INSTRUCTIONS (Completed) Service provider: María Cervantes Billing provider: Francois Smalls DDS D1206 - TOPICAL APPLICATION OF FLUORIDE VARNISH (Completed) Service provider: María Cervantes Billing provider: Francois Smalls DDS D0120 - PERIODIC ORAL EVALUATION - ESTABLISHED PATIENT (Completed) Service provider: Francois Smalls DDS [place] provider: Francois Smalls DDS D5422 - ADJUST PARTIAL DENTURE - MANDIBULAR (Completed) Service provider: Francois Smalls DDS [place] provider: Francois Smalls DDS D5421 - ADJUST PARTIAL DENTURE - MAXILLARY (Completed) Service provider: Francois Smalls DDS Billing provider: Francois Smalls DDS Patient ID: Jennifer Welch is a 79 y.o. female. Time Out: Timeout Date: 12/27/24, Timeout Time: 950 (X-rays, Perio chart, Adonay P. exam with Dr. Smalls) Location: [facility] Tooth: Maxilla and Mandible Procedure: Exam, X-rays, and Prophylaxis and adj RPD Verified the above with patient, chemist assistant, and provider. Confirmed via patient's chart, intraorally and by radiographs. Press Manager: not applicable Chief Complaint Patient presents with Routine Cleaning Dental Exam x-rays Perio chart Medical Hx: Vitals: Blood pressure 122/72. Medical History[1] Medications: Encounter Medications[2] Objective HPI Discomfort on left side Head and Neck Exam: Lymph Nodes, Lips, Palate, Buccal Mucosa, Floor of Mouth, Tongue, Tonsils, Alveolar Ridges, Oropharynx, Salivary Ducts, and Vestibules Details: Skin NSF OCS: negative Dental Exam As charted Adjust max. And moira partials on left flanges Reference tooth chart for additional findings. Oral Cancer Risk: Low Risk Oral Hygiene Instructions: [place] two times daily, modified joshi technique, Floss daily, Electric toothbrush, Soft bristle toothbrush, [place] Tongue Caries Risk Assessment: Low- no risk factor Assessment/Plan LLOYD X rays Prophy Adj. Set of partials Patient tolerated procedure well, all questions answered and expressed understanding. Dismissed in good condition. NV: Exo and add tooth Floor Tech: María Cervantes RDH Dentist: Francois Smalls DDS [1] Past Medical History: Diagnosis Date Allergies Arthritis [2] Outpatient Encounter Medications as of 12/27/2024 Medication Sig Dispense Refill acetaminophen (Tylenol 8 Hour) 650 MG ER tablet Take 1 tablet (650 mg) by mouth every 8 (eight) hours if needed for mild pain. Do not crush, chew, or split. 30 tablet 0 bisacodyl (Dulcolax) 5 MG EC tablet take 2 tablet by oral route once daily as needed for constipation calcium carbonate 1500 (600 Ca) MG tablet Take 3,000 mg by mouth in the morning. cetirizine (ZyrTEC) 10 MG tablet Take 1 tablet by mouth at bed time. chlorhexidine (Periogard) 0.12 % solution Place 15 mL into mouth between cheek and gum every 12 (twelve) hours. cholecalciferol (Vitamin D-3) 50 MCG (1999 UT) tablet Take 1 tablet by mouth at bed time. clotrimazole-betamethasone (Lotrisone) cream APPLY TO THE AFFECTED AREA(S) TWICE DAILY Diclofenac Sodium (Voltaren) 1 % gel apply 2 gram by topical route 4 times every day to the affected area(s) EPINEPHrine (Epipen) 0.3 MG/0.3ML injection syringe INJECT INTRAMUSCULARLY DIRECTED ON PACKAGE AND GO TO EMERGENCY ROOM 2 each 1 Premarin 0.625 MG/GM cream INSERT 1 GRAM VAGINALLY TWICE A WEEK ON THURSDAY AND THURSDAY Vitamin D High Potency 25 MCG (1000 UT) capsule Take 25 mcg by mouth in the morning. No facility-administered encounter medications on file as of 12/27/2024. documented in this encounter Plan of Treatment Upcoming Encounters Date Type Department Care Team (Late st Contact Info) Description 01/20/2025 8:00 AM EDT Office Visit [facility] ADULT D[facility] [address] [place] [address] Francois Smalls DDS [address] [place] [address] 06/27/2025 8:45 AM EDT Office Visit [facility] ADULT D[facility] [address] [place] [address] Mraía Cervantes [address] [place] [address] Scheduled Orders Name Type Priority Associated Diagnoses Orde r Schedule PROPHYLAXIS - ADULT Dental Routine 1 Occ urrences starting 12/27/2024 TOPICAL APPLICATION OF FLUORIDE VARNISH Dental Routine 1 Occurrences s tarting 12/27/2024 CASE PRESENTATION, DETAILED AND EXTENSIVE TREATMENT PLANNING Dental Routine 1 Occurrences starting 12/27/2024 ORAL HYGIENE INSTRUCTIONS Dental Routine 1 Occurrences starting 12/27/2024 documented as of this encounter Procedures Procedure Name Priority Date/Time Associated Diagnosis Comments TOPICAL APPLICATION OF FLUORIDE VARNISH Routine 12/27/2024 10:00 AM EDT Partial edentulism, unspecified edentulism class Dental plaque Tipped teeth PROPHYLAXIS - ADULT Routine 12/27/2024 1 0:00 AM EDT Partial edentulism, unspecified edentulism class Dental plaque Tipped teeth PERIODIC ORAL EVALUATION - ESTABLISHED PATIENT Routine 12/27/2024 10:00 AM EDT ORAL HYGIENE INSTRUCTIONS Routine 12/27/2024 10:00 AM EDT Partial edentulism, unspecified edentulism class Dental plaque Tipped teeth INTRAORAL - COMPLETE SERIES OF RADIOGRAPHIC IMAGES Routine 12/27/2024 10:00 AM EDT Partial edentulism, unspecified edentulism class Dental plaque Tipped teeth CASE PRESENTATION, DETAILED AND EXTENSIVE TREATMENT PLANNING Routine 12/27/2024 10:00 AM EDT Partial edentulism, unspecified edentulism class Dental plaque Tipped teeth ADJUST PARTIAL DENTURE - MAXILLARY Routine 12/27/2024 10:00 AM EDT ADJUST PARTIAL DENTURE - MANDIBULAR Routine 12/27/2024 10:00 AM EDT documented in this encounter Visit Diagnoses Diagnosis Partial edentulism, unspecified edentulism class- Primary Dental plaque Accretions on teeth Tipped teeth Horizontal displacement of teeth Localized gingival recession Gingival recession, localized Ill-fitting dentures documented in this encounter
--- NOTE | ~2024-12-28 | XR_ITS ---
EXAMINATION: XR HIP 2 OR MORE VIEWS LEFT HISTORY: M25.552 - Pain in left hip COMPARISON: Comparison is made with the prior examination dated 07/17/2020. FINDINGS: Two views of the left hip are submitted. Osseous mineralization is normal. There is no fracture or dislocation. There is mild joint space narrowing. The soft tissues are unremarkable. XR/XR hip LT min 2V IMPRESSION: Mild joint space narrowing. Electronically signed by: Jeronimo Fitzgerald MD 12/28/2024 08:33 AM EDT
--- NOTE | ~2024-12-28 | XR_ITS ---
EXAMINATION: XR SHOULDER 2 OR MORE VIEWS LEFT HISTORY: M25.512 - Pain in left shoulder COMPARISON: There are no prior studies available for comparison. FINDINGS: Four views of the left shoulder are submitted. Osseous mineralization is normal. There is no fracture or dislocation. The glenohumeral joint is maintained. There is mild narrowing of the AC joint. The soft tissues are unremarkable. XR/XR shoulder LT min 2V IMPRESSION: Mild narrowing of the AC joint. Electronically signed by: Jeronimo iFtzgerald MD 12/28/2024 08:35 AM EDT
--- OUTSIDE RECORDS SUMMARY | 2024-12-28 09:05 | XMS_ITS | Encounter Summary ---
Author Organization [employer] Address [address] [facility] [address] [place] [address] Care Team Providers Care Ammunition Assembly Laborer Name Role Phone Timothy Obdulio HATHAWAY Primary Care Provider Unavail able Encounter Details Date Type Department Care Team (Late Contact Info) Description 06/19/2022 Abstract [facility] ADULT DENT[facility] [address] [place] [address] Johnnie Baca DMD [address] [place], [place] [phone] Social History Tobacco Use Types Packs/Day Years [...] Department Care Team (Late Contact Info) Description 01/20/2025 8:00 AM EDT Office Visit [facility] [address] [place], [place] [phone] Francois Smalls DDS [address] [place], [place] [phone] 06/27/2025 8:45 AM EDT Office Visit [facility] [address] [place] [address] Joseph Cervantesaris [address] [place] [address] documented as of this encounter Visit Diagnoses Not on filedocumented in this encounter Care Teams Ammunition Assembly Laborer Relationship Specialty Start Date End Date Obdulio Aguirre AGNP PCP - General Family Medicine 01/28/22 12/28/22 documented as of this encounter
--- OUTSIDE RECORDS SUMMARY | 2024-12-28 09:05 | XMS_ITS | Encounter Summary ---
Author Organization [employer] Address [address] [facility] [address] [place] [address] Care Team Providers Care Hairspring I Inspector Name Role Phone Timothy Obdulio HATHAWAY Primary Care Provider Unavail able Encounter Details Date Type Department Care Team (Late Contact Info) Description 06/27/2022 Abstract [facility] ADULT DENTAL [address] [place] [address] Johnnie Baca DMD [address] [place], [place] [phone] Social History Tobacco Use Types Packs/Day Years [...] suspected to have Coronavirus/COVID-19? No / Unsure 06/23/2022 3:01 PM EST documented as of this encounter Plan of Treatment Upcoming Encounters Date Type Department Care Team (Late Contact Info) Description 01/20/2025 8:00 AM EDT Office Visit [facility] ADULT DENTAL [address] [place] [address] Francois Smalls DDS [address] [place], [place] [phone] 06/27/2025 8:45 AM EDT Office Visit [facility] ADULT DENT[facility] [address] [place] [address] Joseph Cervantesaris [address] [place] [address] documented as of this encounter Visit Diagnoses Not on filedocumented in this encounter Care Teams Hairspring I Inspector Relationship Specialty Start Date End Date Obdulio Aguirre AGNP PCP - General Family Medicine 01/28/22 12/28/22 documented as of this encounter
--- OUTSIDE RECORDS SUMMARY | 2024-12-28 09:05 | XMS_ITS | Encounter Summary ---
Author Organization [employer] Address [address] [facility] [address] [place] [address] Care Team Providers Care Drafter Chief Design Name Role Phone Timothy Obdulio HATHAWAY Primary Care Provider Unavail able Encounter Details Date Type Department Care Team (Late Contact Info) Description 06/25/2022 Abstract [facility] ADULT DENTAL [address] [place] [address] Johnnie Baca DMD [address] [place], [place] [phone] Social History Tobacco Use Types Packs/Day Years [...] Description 01/20/2025 8:00 AM EDT Office Visit [facility] ADULT D[facility] [address] [place] [address] Francois Smalls DDS [address] [place], [place] [phone] 06/27/2025 8:45 AM EDT Office Visit [facility] ADULT DENT[facility] [address] [place] [address] Joseph Cervantesaris [address] [place] [address] documented as of this encounter Visit Diagnoses Not on filedocumented in this encounter Care Teams Drafter Chief Design Relationship Specialty Start Date End Date Obdulio Aguirre AGNP PCP - General Family Medicine 01/28/22 12/28/22 documented as of this encounter
--- OUTSIDE RECORDS SUMMARY | 2024-12-28 09:05 | XMS_ITS | Encounter Summary ---
Author Organization [employer] Address [address] [facility] [address] [place] [address] Care Team Providers Care Button Inspector Name Role Phone Timothy Obdulio HATHAWAY Primary Care Provider Unavail able Encounter Details Date Type Department Care Team (Late Contact Info) Description 06/20/2022 Abstract [facility] ADULT DENT[facility] [address] [place] [address] Johnnie Baca DMD [address] [place], [place] [phone] Social History Tobacco Use Types Packs/Day Years [...] Description 01/20/2025 8:00 AM EDT Office Visit [facility] ADULT D[facility] [address] [place], [place] [phone] Francois Smalls DDS [address] [place], [place] [phone] 06/27/2025 8:45 AM EDT Office Visit [facility] ADULT DENT[facility] [address] [place] [address] Joseph Cervantesaris [address] [place] [address] documented as of this encounter Visit Diagnoses Not on filedocumented in this encounter Care Teams Button Inspector Relationship Specialty Start Date End Date Obdulio Aguirre AGNP PCP - General Family Medicine 01/28/22 12/28/22 documented as of this encounter
--- OUTSIDE RECORDS SUMMARY | 2024-12-28 09:06 | XMS_ITS | Encounter Summary ---
Author Organization [employer] [facility] Address [address] [place] [address] [address] [place] [address] Care Team Providers Care Brick And Block Mason Name Role Phone Obdulio Aguirre Primary Care Provider Unavail able Encounter Details Date Type Department Care Team (Latest Contact Info) Description 09/18/2021 Abstract [facility] CONVERSIONS Dental, Provider, DDS Social History Tobacco Use Types Packs/Day Years Used Date Smoking Tobacco: Never Assessed Comments Unknown Sex and Gender Information Value Date Recorded Sex Assigned at Female 02/17/2022 10:14 AM EDT Legal Sex Female 10:14 AM EDT Gender Identity Female 02/17/2022 10:14 AM EDT Sexual Orientation Straight 02/17/2022 10 :14 AM EDT documented as of this encounter Plan of Treatment Upcoming Encounters Date Type Department Care Team (Late st Contact Info) Description 01/20/2025 8:00 AM EDT Office Visit [facility] ADULT DENTAL [address] [place] [address] Francois Smalls DDS [address] [place] [address] 06/27/2025 8:45 AM EDT Office Visit [facility] ADULT DENTAL [address] [place] [address] Billy María [address] [place] [address] documented as of this encounter Visit Diagnoses Not on filedocumented in this encounter Care Teams Brick And Block Mason Relationship Specialty Start Date End Date Obdulio Aguirre AGNP PCP - General Family Medicine 01/28/22 12/28/22 documented as of this encounter
--- OUTSIDE RECORDS SUMMARY | 2024-12-28 09:06 | XMS_ITS | Encounter Summary ---
Author Organization [employer] Address [address] [facility] 7t [place] [address] Care Team Providers Care Building Construction Inspector Name Role Phone Obdulio Aguirre RIVAS Primary Care Provider Unavail able Encounter Details Date Type Department Care Team (Late Contact Info) Description 07/10/[address] [facility] ADULT DENTAL [address] [place] [address] Susan Willams DDS [address] [place] [address] Social History Tobacco Use Types Packs/Day Years [...] Description 01/20/2025 8:00 AM EDT Office Visit [facility] [address] [place] [address] Francois Smalls DDS [address] [place] [address] 06/27/2025 8:45 AM EDT Office Visit [facility] [address] [place] [address] Joseph Cervantesaris [address] [place] [address] documented as of this encounter Visit Diagnoses Not on filedocumented in this encounter Care Teams Building Construction Inspector Relationship Specialty Start Date End Date Obdulio Aguirre AGNP PCP - General Family Medicine 01/28/22 12/28/22 documented as of this encounter
--- OUTSIDE RECORDS SUMMARY | 2024-12-28 09:06 | XMS_ITS | Clinical Summary ---
Author Organization [employer] Address [address] [place] [address] 7t [place] [address] Care Team Providers Care Attorney Law Clerk Name Role Phone Unavailable Primary Care Provider Unavailabl e Allergies Active Allergy Reactions Criticality Noted Date Comments Fruit Extracts Anaphylaxis High 12/09/2012 Peanut-Containing Drug Products Anaphylaxis High Medications bisacodyl (Dulcolax) 5 MG EC tablet take 2 tablet by oral route once daily as needed for constipation 04/19/20 20 Active calcium carbonate 1500 (600 Ca) MG tablet Take 3,000 mg by mouth in the morning. 01/14/20 22 Active cetirizine (ZyrTEC) 10 MG tablet Take 1 tablet by mouth at bed time. 04/09/20 21 Active chlorhexidine (Periogard) 0.12 % solution Place 15 mL into mouth between cheek and gum every 12 (twelve) hours. 11/13/19 22 Active cholecalcifero l (Vitamin D-3) 50 MCG (2000 UT) tablet Take 1 tablet by mouth at bed time. 12/29/19 19 Active clotrimazole-b etamethasone (Lotrisone) cream APPLY TO THE AFFECTED AREA(S) TWICE DAILY 02/27/20 22 Active Diclofenac Sodium (Voltaren) 1 % gel apply 2 gram by topical route 4 times every day to the affected area(s) 01/13/20 20 Active Premarin 0.625 MG/GM cream INSERT 1 GRAM VAGINALLY TWICE A WEEK ON THURSDAY AND Thursday01/14/20 22 Active EPINEPHrine (Epipen) 0.3 MG/0.3ML injection syringeIndicat ions:Peanut allergy INJECT INTRAMUSCULARLY DIRECTED ON PACKAGE AND GO TO EMERGENCY ROOM 2 each 1 04/25/20 23 Active Vitamin D High Potency 25 MCG (1000 UT) capsule Take 25 mcg by mouth in the morning. 01/28/20 Active acetaminophen (Tylenol 8 Hour) 650 MG ER tablet Take 1 tablet (650 mg) by mouth every 8 (eight) hours if needed for mild pain. Do not crush, chew, or split. 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 Vitamin D deficiency 04/05/2013 Allergic rhinitis 10/09/2011 Backache 10/09/2011 Constipation 10/09/2011 Midline cystocele 10/09/2011 Varicose veins of lower extremity 10/09/2011 Encounters Date Type Department Care Team Description 12/27/2024 10:00 AM EDT Office Visit [facility] ADULT DENTAL [address] [place] [address] Billy, María Partial edentulism, unspecified edentulism class (Primary Dx); Dental plaque; Tipped teeth; Localized gingival recession; Ill-fitting dentures 12/15/2024 9:00 AM EDT Office Visit [facility] ADULT DENTAL [address] [place] [address] Francois Smalls DDS Closed fracture of tooth, initial encounter (Primary Dx) from Last 3 Months Immunizations Immunization Administration Dates Next Due Influenza High-dose Quadriva lent Preservative Free 01/27/2023,01/14/2022,12/12/2020,01/31 Influenza injectable quadriv alent preservative free 01/18/2019,02/05/2017,01/19/2016 Influenza, High Dose Seasona l, Preservative Free 01/12/2018 Influenza, IIV3, injectable 03/23/2009 Moderna Covid-19 Vaccine 12+ 06/26/2020,05/29/19 Pneumococcal Conjugate PCV 13 12/12/2020, 017,10/09/2015 Pneumococcal Polysaccharide PPSV23 08/24/2013 TD (adult), 2 Lf tetanus tox oid, preservative free, adsorbed 04/21/1995 Tdap 08/24/2013 Zoster, Recombinant 04/11/2020,02/09/2020 Zoster, live 06/15/2014 Social History Tobacco Use Types Packs/Day Years Used Date Smoking Tobacco: Never Passive Smoke Exposure: Never Smokeless Tobacco: Never Tobacco Cessation:Counseling Given: Not Answered Alcohol Use Standard Drinks/Week Comments Never 0 (1 standard drink = 0.6 oz pur e alcohol) Comments Unknown Sex and Gender Information Value Date Recorded Sex Assigned at Female 02/17/2022 10:14 AM EDT Legal Sex Female 10:14 AM EDT Gender Identity Female 02/17/2022 10:14 AM EDT Sexual Orientation Straight 02/17/2022 10 :14 AM EDT Last Filed Vital Signs Vital Sign Reading Time Taken Comments Blood Pressure 122/72 12/27/2024 9:45 AM EDT Pulse 88 07/27/2024 9:20 AM EDT Temperature - - Respiratory Rate - - Oxygen Saturation - - Inhaled Oxygen Concentration - - Weight 64.3 kg (141 lb 12.8 oz) 020 12:09 AM EDT Height 144.8 cm (4' 9 ) 01/13/2020 12:0 9 AM EDT Body Mass Index 30.68 01/13/2020 12:09 AM EDT Plan of Treatment Upcoming Encounters Date Type Department Care Team (Late st Contact Info) Description 01/20/2025 8:00 AM EDT Office Visit [facility] ADULT DENTAL [address] [place] [address] Francois Smalls DDS [address] [place] [address] 06/27/2025 8:45 AM EDT Office Visit [facility] ADULT DENTAL [address] [place] [address] María Cervantes [address] [place] [address] Health Maintenance Due Date Last Done Comments Depression Screening 1945 SDOH Screening 1945 Alcohol/Substance Use Screening 1959 Hepatitis C Screening 1965 COVID-19 Vaccine ( season) 2024 02/17/2023, 02/26/2022, 09/02/2021, Additional history exists Influenza Vaccine (#1) 2024 , 01/27/2023, 01/14/2022, Additional history exists Dental Oral Exam 06/27/2025 12/27/2024, 06/2024, 12/15/2023, Additional history exists Dental Prophylaxis 06/27/2025 12/27/2024, 0 06/20/2024, 12/15/2023, Additional history exists Tobacco Screening 12/27/2025 12/27/2024 Dental X-Ray: Bitewings 12/28/2025 12/28/19, 12/15/2023, 10/06/2023, Additional history exists Dental X-Ray: Full Mouth 12/29/2027 12/27/2024, 02/20 DTaP/Tdap/Td Vaccines (3 - Td or Tdap) 07/04/2034 07/04/2024, 08/24/2013, 04/21/1995 Pneumococcal Vaccine: 50+ Years Completed 12/12/2020, 06/11/2016, 10/09/2015, Additional history exists Zoster Vaccines Completed 05/21/2023, 01/18, 04/11/2020, Additional history exists RSV Patients and Patients Aged 60 years or older Completed 11/19/2023 HIB Vaccines Aged Out No longer eligi ble based on patient's age to complete this topic HPV Vaccines Aged Out No longer eligi ble based on patient's age to complete this topic Hepatitis A Vaccines Aged Out No long er eligible based on patient's age to complete this topic Hepatitis B Vaccines Aged Out No long er eligible based on patient's age to complete this topic IPV Vaccines Aged Out No longer eligi ble based on patient's age to complete this topic Meningococcal B Vaccine Aged Out No l onger eligible based on patient's age to complete this topic Meningococcal Vaccine Aged Out No georgina jesus eligible based on patient's age to complete this topic RSV under 20 months Aged Out No longe r eligible based on patient's age to complete this topic Rotavirus Vaccines Aged Out No longer eligible based on patient's age to complete this topic Procedures Procedure Name Priority Date/Time Associated Diagnosis Comments ADJUST PARTIAL DENTURE - MAXILLARY Routine 12/27/2024 10:00 AM EDT ADJUST PARTIAL DENTURE - MANDIBULAR Routine 12/27/2024 10:00 AM EDT PERIODIC ORAL EVALUATION - ESTABLISHED PATIENT Routine 12/27/2024 10:00 AM EDT TOPICAL APPLICATION OF FLUORIDE VARNISH Routine 12/27/2024 10:00 AM EDT Partial edentulism, unspecified edentulism class Dental plaque Tipped teeth ORAL HYGIENE INSTRUCTIONS Routine 12/27/2024 10:00 AM [...] PRESENTATION, DETAILED AND EXTENSIVE TREATMENT PLANNING Routine 12/15/2024 9:00 AM EDT INTRAORAL - PERIAPICAL FIRST RADIOGRAPHIC IMAGE Routine 12/15/2024 9:00 AM EDT LIMITED ORAL EVALUATION - PROBLEM FOCUSED Routine 12/15/2024 9:00 AM EDT from Last 3 Months Insurance [facility] PLAN MEDICARE DENTAL - [facility]
--- OUTSIDE RECORDS SUMMARY | 2024-12-28 09:06 | XMS_ITS | Encounter Summary ---
Author Organization [employer] Address [address] [facility] 7t [place] [address] Care Team Providers Care Tick Eradicator Name Role Phone Obdulio Aguirre RIVAS Primary Care Provider Unavail able Encounter Details Date Type Department Care Team (Late Contact Info) Description 07/17/2022 Abstract [facility] ADULT DENTAL [address] [place] [address] Susan Willams DDS [address] [place] [address] Social History Tobacco Use Types Packs/Day Years [...] Description 01/20/2025 8:00 AM EDT Office Visit [facility] ADULT DENTAL [address] [place] [address] Francois Smalls DDS [address] [place] [address] 06/27/2025 8:45 AM EDT Office Visit [facility] ADULT DENTAL [address] [place] [address] Joseph Cervantesaris [address] [place] [address] documented as of this encounter Visit Diagnoses Not on filedocumented in this encounter Care Teams Tick Eradicator Relationship Specialty Start Date End Date Obdulio Aguirre AGNP PCP - General Family Medicine 01/28/22 12/28/22 documented as of this encounter
--- OUTSIDE RECORDS SUMMARY | 2024-12-28 09:06 | XMS_ITS | Encounter Summary ---
Author Organization [employer] Address [address] [place] [address] Care Team Providers Care Merchandise Worker Name Role Phone Chela Mansfield MD Primary Care Provider [phone] Encounter Details Date Type Department Care Team (Late st Contact Info) Description 08/08/2024 Lab Requisition [facility] - Main Lab [address] [facility] [place] [address] Maricel Clemente PA [address] [place], [place] [id number] Urinary tract infection, site not specified; Dysuria [...] Urine No growth 08/09/2024 10:21 AM EDT [facility] Urine Urine specimen obtained by clean catch procedure / Unknown 08/08/2024 9:45 AM EDT 08/08/2024 12:13 PM EDT us Mar[facility] MICROBIOLOGY - GENERAL ORD ERABLES Final Result [facility] [address] [place] [address], documented in this encounter Visit Diagnoses Diagnosis Urinary tract infection, site not specified Dysuria documented in this encounter Care Teams Merchandise Worker Relationship Specialty Start Date End Date Chela Mansfield MD [address] [facility] , [address] [place] [address] Physician Associ D/B/A: [facility] MICHELLE Alvarado PCP - General Internal Medicine 11/16/20 documented as of this encounter
--- OUTSIDE RECORDS SUMMARY | 2024-12-28 09:06 | XMS_ITS | Encounter Summary ---
Author Organization [employer] Address [address] [facility] 7t [place] [address] Care Team Providers Care C2 Tactical Analysis Technician Name Role Phone Aguirre Obdulio HATHAWAY Primary Care Provider Unavail able Reason for Visit * Reason Onset Date Comments Appointment 07/28/2022 Jennifer Welch Patient called in and wanted to know if crown is in office to be able to give her appt please advise. Encounter Details Date Type Department Care Team ([facility] Contact Info) Description 07/28/2022 Telephone [facility] ADULT DENTAL [address] [place] [address] Johnnie Baca, DMD [address] [place] [address] Appointment (Jennifer Welch 1945 Patient called in and wanted to know if crown is in office to be able to give her appt please advise.) Social History Tobacco Use Types Packs/Day Years [...] suspected to have Coronavirus/COVID-19? No / Unsure 07/21/2022 8:08 AM EDT documented as of this encounter Miscellaneous Notes * Telephone Encounter - Antonietta Jones - 07/28/2022 2:11 PM EDT Jennifer Welch LEI 1945 Patient called in and wanted to know if crown is in office to be able to give her appt please advise documented in this encounter Plan of Treatment Upcoming Encounters Date Type Department Care Team (Late st Contact Info) Description 01/20/2025 8:00 AM EDT Office Visit [facility] ADULT [facility] [address] [place] [address] Francois Smalls DDS [address] [place] [address] 06/27/2025 8:45 AM EDT Office Visit [facility] ADULT DENTAL [address] [place] [address] María Cervantes [address] [place] [address] documented as of this encounter Visit Diagnoses Not on filedocumented in this encounter Care Teams C2 Tactical Analysis Technician Relationship Specialty Start Date End Date Obdulio Aguirre AGNP PCP - General Family Medicine 01/28/22 12/28/22 documented as of this encounter
--- OUTSIDE RECORDS SUMMARY | 2024-12-28 09:06 | XMS_ITS | Encounter Summary ---
Author Organization [facility] Address [address] [facility] 7t [place] [address] Care Team Providers Care Certified Novell Administrator Name Role Phone Obdulio Aguirre Primary Care Provider Unavail able Encounter Details Date Type Department Care Team (Latest Contact Info) Description 02/10/2020 Abstract [facility] CONVERSIONS Dental, Provider, DDS Social History Tobacco [...] Description 01/20/2025 8:00 AM EDT Office Visit [facility] ADULT DENTAL [address] [place] [address] Francois Smalls DDS [address] [place] [address] 06/27/2025 8:45 AM EDT Office Visit [facility] ADULT DENTAL [address] [place] [address] Billy María [address] [place] [address] documented as of this encounter Visit Diagnoses Not on filedocumented in this encounter Care Teams Certified Novell Administrator Relationship Specialty Start Date End Date Obdulio Aguirre AGNP PCP - General Family Medicine 01/28/22 12/28/22 documented as of this encounter
--- OUTSIDE RECORDS SUMMARY | 2024-12-28 09:06 | XMS_ITS | Encounter Summary ---
Author Organization [employer] [facility] Address [address] [place] [address] 7t [place] [address] Care Team Providers Care Physical Security Engineer Name Role Phone Obdulio Aguirre RIVAS Primary Care Provider Unavail able Encounter Details Date Type Department Care Team (Late st Contact Info) Description 03/19/2022 Abstract [facility] ADULT DENTAL [address] [place] [address] Dental, Provider, DDS Social History Tobacco Use [...] Description 01/20/2025 8:00 AM EDT Office Visit [facility] ADULT DENTAL [address] [place] [address] Francois Smalls DDS [address] [place] [address] 06/27/2025 8:45 AM EDT Office Visit [facility] ADULT DENTAL [address] [place] [address] María Cervantes [address] [place] [address] documented as of this encounter Procedures Procedure Name Priority Date/Time Associated Diagnosis Comments 19,29,30,31 PARTIAL DENTURE - RESIN Routine 03/19/2022 12:00 AM EST 12 PREFABRICATED POST AND CORE IN ADDITION TO CROWN Routine 03/19/2022 12:00 AM EST 12 CROWN - PORCELAIN/CERAMIC Routine 03/19/2022 12:00 AM EST 2 CROWN - PORCELAIN/CERAMIC Routine 03/19/2022 12:00 AM EST 28 DOL COMPOSITE FILLING Routine 12:00 AM EST 15 DOL COMPOSITE FILLING Routine 12:00 AM EST 13 MO COMPOSITE FILLING Routine 03/19/20 12:00 AM EST 10 I COMPOSITE FILLING Routine 12:00 AM EST 21 O AMALGAM FILLING Routine 03/19/2022 12:00 AM EST 20 O AMALGAM FILLING Routine 03/19/2022 12:00 AM EST 18 SLICK AMALGAM FILLING Routine 03/19/2022 12:00 AM EST 16 O AMALGAM FILLING Routine 03/19/2022 12:00 AM EST 1 MO AMALGAM FILLING Routine 03/19/2022 12:00 AM EST 32 EXTRACTION Routine 03/19/2022 12:00 AM EST 31 EXTRACTION Routine 03/19/2022 12:00 AM EST 30 EXTRACTION Routine 03/19/2022 12:00 AM EST 29 EXTRACTION Routine 03/19/2022 12:00 AM EST 19 EXTRACTION Routine 03/19/2022 12:00 AM EST 17 EXTRACTION Routine 03/19/2022 12:00 AM EST 14 EXTRACTION Routine 03/19/2022 12:00 AM EST 3 EXTRACTION Routine 03/19/2022 12:00 AM EST 12 ROOT CANAL Routine 03/19/2022 12:00 AM EST documented in this encounter Visit Diagnoses Not on filedocumented in this encounter Care Teams Physical Security Engineer Relationship Specialty Start Date End Date Obdulio Aguirre AGNP PCP - General Family Medicine 01/28/22 12/28/22 documented as of this encounter
--- OUTSIDE RECORDS SUMMARY | 2024-12-28 09:06 | XMS_ITS | Encounter Summary ---
Author Organization [employer] [facility] Address [address] [facility] 7t [place] [address] Care Team Providers Care Transfer Car Operator Name Role Phone Obdulio Aguirre Primary Care Provider Unavail able Encounter Details Date Type Department Care Team (Latest Contact Info) Description 03/10/2019 Abstract [facility] CONVERSIONS Dental, Provider, DDS Social History Tobacco [...] 8:00 AM EDT Office Visit [facility] ADULT DENTAL [address] [place] [address] Francois Smalls DDS [address] [place] [address] 06/27/2025 8:45 AM EDT Office Visit [facility] ADULT DENTAL [address] [place] [address] Billy María [address] [place] [address] documented as of this encounter Visit Diagnoses Not on filedocumented in this encounter Care Teams Transfer Car Operator Relationship Specialty Start Date End Date Obdulio Aguirre AGNP PCP - General Family Medicine 01/28/22 12/28/22 documented as of this encounter
--- OUTSIDE RECORDS SUMMARY | 2024-12-28 09:06 | XMS_ITS | Encounter Summary ---
Author Organization [facility] Address [address] [place] [address] 7t [place] [address] Care Team Providers Care Basketball Coach Name Role Phone Obdulio Aguirre Primary Care Provider Unavail able Encounter Details Date Type Department Care Team (Latest Contact Info) Description 03/19/2021 Abstract [facility] CONVERSIONS Dental, Provider, DDS Social History [...] Description 01/20/2025 8:00 AM EDT Office Visit [facility] ADULT DENTAL [address] [place] [address] Francois Smalls DDS [address] [place] [address] 06/27/2025 8:45 AM EDT Office Visit [facility] ADULT DENTAL [address] [place] [address] Billy María [address] [place] [address] documented as of this encounter Visit Diagnoses Not on filedocumented in this encounter Care Teams Basketball Coach Relationship Specialty Start Date End Date Obdulio Aguirre AGNP PCP - General Family Medicine 01/28/22 12/28/22 documented as of this encounter
--- OUTSIDE RECORDS SUMMARY | 2024-12-28 09:06 | XMS_ITS | Clinical Summary ---
Author Organization [address] [facility] Address [address] [place] [address] Phone Care Team Providers Care Getterer Name Role Phone Chela Mansfield MD Primary Care Provider Surgical History Surgery Date Site/Laterality Comments CATARACT EXTRACTION PROCEDURE: HISTORICAL CATARACT REMOVAL Medical History Medical History Date Comments Allergic rhinitis DX:Allergic rh initis Cystocele with incomplete ut erovaginal prolapse DX:Cystocele with incomplete uterovaginal prolapse Constipation DX:Constipation Vitamin D deficiency DX:Vitamin D deficiency Degenerative arthritis of hand D X:Degenerative arthritis of hand Social History Tobacco Use Types Packs/Day Years Used Date Smoking Tobacco: Never Smokeless Tobacco: Never Alcohol Use Standard Drinks/Week Comments Yes 0 (1 standard drink = 0.6 oz pur e alcohol) Comments Unknown Sex and Gender Information Value Date Recorded Sex Assigned at Not on file Legal Sex Female 10:25 AM EST Gender Identity Not on file Sexual Orientation Not on file Obstetrics History Plan of Treatment Health Maintenance Due Date Last Done Comments RSV Immunization Adult Patients (1 - 1-dose 75+ series) 2022 Falls Risk Assessment 03/24/2022 Hepatitis C Screening 03/24/2022 Osteoporosis Screening (Bone Density Screening) 03/24/2022 Social Influencers of Health Screening 03/24/2022 DTaP,Tdap,and Td Vaccines (3 - Td or Tdap) 08/25/2023 08/24/2013, 04/21/1995 Depression Screening 04/20/2024 COVID-19 Vaccine (2024- season) 2024 06/26/2020, 05/29/2020 Influenza Vaccine (#1) 2024 , 01/14/2022, 12/12/2020, Additional history exists Zoster Vaccines Completed 04/11/2020, 01/19, 06/15/2014 Pneumococcal Vaccine: 50+ Years Completed 12/12/2020, 06/11/2016, 10/09/2015, Additional history exists HIB Vaccines Aged Out No longer eligi [...] on patient's age to complete this topic MMR Vaccines Aged Out No longer eligi ble based on patient's age to complete this topic Meningococcal ACWY Vaccine Aged Out N o longer eligible based on patient's age to complete this topic Meningococcal B Vaccine Aged Out No l onger eligible based on patient's age to complete this topic RSV Immunization Patients Under 20 months Aged Out No longer eligible based on patient's age to complete this topic Varicella Vaccines Aged Out No longer eligible based on patient's age to complete this topic Insurance [facility] [place] [id number] Care Teams Getterer Relationship Specialty Start Date End Date Chela Mansfield MD [address] [place] [address] , [address] Physician Associ D/B/A: [facility] [place] PCP - General Internal Medicine 11/16/20
--- OUTSIDE RECORDS SUMMARY | 2024-12-28 09:06 | XMS_ITS | Encounter Summary ---
Author Organization [employer] Address [address] [facility] 7t [place] [address] Care Team Providers Care Medical Reception Specialist Name Role Phone Timothy Obdulio HATHAWAY Primary Care Provider Unavail able Encounter Details Date Type Department Care Team (Late Contact Info) Description 07/10/2022 Abstract [facility] ADULT DENTAL [address] [place] [address] Johnnie Baca DMD [address] [place], [place] [phone] Social History Tobacco Use Types Packs/Day Years [...] Description 01/20/2025 8:00 AM EDT Office Visit [facility] ADULT DENTAL [address] [place], [place] [phone] Francois Smalls DDS [address] [place], [place] [phone] 06/27/2025 8:45 AM EDT Office Visit [facility] ADULT DENTAL [address] [place] [address] Joseph Cervantesaris [address] [place] [address] documented as of this encounter Visit Diagnoses Not on filedocumented in this encounter Care Teams Medical Reception Specialist Relationship Specialty Start Date End Date Obdulio Aguirre AGNP PCP - General Family Medicine 01/28/22 12/28/22 documented as of this encounter
== END 2024-12-28 08:05 | disposition home or self-care (01) ==
LOC: HO.XRAY 08:04
PROVIDERS: Visit Provider Internal Medicine
DX: M25.552 Pain in left hip (principal); M25.512 Pain in left shoulder
CPT/HCPCS: 73030; 73502

== ENCOUNTER → 2024-12-28 08:13 | Outpatient (BNV) | payer OTHER, SELFPAY | PROVIDERS: Visit Provider Radiology Diagnostic Radiology | DX: M16.12 Unilateral primary osteoarthritis, left hip (principal); M19.012 Primary osteoarthritis, left shoulder | CPT/HCPCS: 73030; 73502 ==

== ENCOUNTER 2025-01-04 09:38 | Outpatient (AMB) | payer OTHER, SELFPAY ==
[2025-01-04 10:32] VITALS: BP 120/60; PULSE 78; RESP 18; TEMP 36.1; O2SAT 95; BMI 30.2
--- NOTE | 2025-01-04 10:32 | MHC.PC.OV ---
Vital Signs 01/04/25 10:32 Height 4 ft 9 in Weight 139 lb 8 oz BMI 30.2 BP 120/60 Blood Pressure Location Lt brachial Position Sitting Respiration 18 Pulse 78 Pulse Source Pulse Oximeter Temp 96.9 F Temp Source Temporal Artery Scan Pulse Oximetry (%) 95 Oxygen Delivery Method Room Air Intake Visit Reasons: allergies Wallpaperer Required: No Accompanied by: Self / Same As Patient Allergies apple (Apple) Allergy (Severe, Verified 01/04/25 10:44) THROAT SWELLING pear (Pear) Allergy (Severe, Verified 01/04/25 10:44) THROAT SWELLING banana (BANANA) Allergy (Intermediate, Verified 01/04/25 10:44) HIVES,THROAT SWELLING latex Allergy (Intermediate, Verified 01/04/25 10:44) Rash nystatin Allergy (Intermediate, Verified 01/04/25 10:44) swelling nuts Allergy (Severe, Uncoded 01/04/25 10:44) anaphylaxis fruits Allergy (Intermediate, Uncoded 01/04/25 10:44) anaphylaxis Medication List - Last Reconciled 01/04/25 by Chela Mansfield MD acetaminophen ER 650 mg PO Q8H PRN 30 days aspirin 81 mg PO DAILY 90 days calcium carbonate 1,200 mg (2 x 600 mg calcium (1,500 mg)) PO DAILY 90 days cetirizine 10 mg PO DAILY PRN 90 days cholecalciferol (vitamin D3) 25 mcg PO DAILY 90 days clotrimazole-betamethasone 1-0.05 % 1 appl topical BID docusate sodium (Colace) 200 mg (2 x 100 mg) PO BEDTIME epinephrine (EpiPen) 0.3 mg (0.3 mL) IM Q4H PRN 30 days loratadine 10 mg PO QAM PRN magnesium 250 mg PO DAILY 90 days melatonin 5 mg PO BEDTIME PRN 90 days methylprednisolone (Medrol (Chapito)) PO PER PKG DIR mirabegron ER (Myrbetriq) 25 mg PO DAILY 90 days ysquseok-ivenuix-lnix-lutein 1 tab PO .once a day 90 days polyethylene glycol 3350 (Miralax) 17 grams PO DAILY Tobacco use date assessed: 01/04/25 Fall risk assessment: No Falls in past year Last assessed Fall Risk: 01/04/25 Dental Screening Dental Screen Date: 01/04/25 Did you have a dental visit in the last 12 months?: Yes Did you have a dental problem in the last 6 months where you did not have access to dental care?: No Was dental information given to patient?: Patient has dentist HPI HPI Comments History of Present Illness Details The patient is a 79-year-old female presenting with follow-up on allergic rhinitis, urge urinary incontinence, and constipation. The patient reports experiencing allergic rhinitis, which has been a persistent issue. She is currently managing urge urinary incontinence with Myrbetriq, which she reports is effective. She follows up with [facility] for this condition. The patient also experiences constipation and has noticed some recent memory loss. She declined a neurology referral and an MRI of the brain but agreed to undergo thyroid and vitamin B12 testing due to their association with memory impairment. Additionally, the patient has dysphonia and has been referred to a NeuroLaryngologist at [facility] for further evaluation. She is scheduled to begin speech therapy for her dysphonia in February. FORMERLY [facility], [facility] Medical History Internal and external thrombosed hemorrhoids Postmenopausal Physical exam Headache Low back pain Seasonal allergies Abdominal gas pain Right shoulder pain Left hip pain Right elbow pain Hypovitaminosis D Chronic constipation Surgical History History of tooth extraction Hx of colonoscopy Hx of cataract extraction Family History Father Throat cancer Mother Cancer of unknown origin Social History Household Members Other:: alone Housing: Apartment Alcohol intake: current Alcohol intake frequency: holidays/special occasions only Alcohol type: wine and hard liquor Patient Tobacco Use Status: Never used Tobacco Tobacco use type: Cigarette e-Cigarette/Vaping Use: Never Used Second Hand Smoke Exposure: No service: No Current occupational status: disabled Cognitive needs: No Hearing needs: Yes Vision needs: Yes Questionnaire PHQ-9 Over the last 2 weeks, how often have you been bothered by any of the following problems? 1. Little interest or pleasure in doing things: more than half the days 2. Feeling down, depressed, or hopeless: not at all 3. Trouble falling or staying asleep, or sleeping too much: several days 4. Feeling tired or having little energy: several days 5. Poor appetite or overeating: not at all 6. Feeling bad about yourself - or that you are a failure or have let yourself or your family down: not at all 7. Trouble concentrating on things, such as reading the newspaper or watching television: several days 8. Moving or speaking so slowly that other people could have noticed. Or the opposite - being so fidgety or restless that you have been moving around a lot more than usual: not at all 9. Thoughts that you would be better off or of hurting yourself in some way: not at all Total score: 5 Depression Screening Interpretation: Positive Depression Screening Follow-up: Existing condition and Follow-up Visit Requested Depression Screening Done: Yes 66346 - PHQ-9 Billing: Yes Source: Developed by Drs. Jeronimo De Leon, Joy Dominguez, Adonis Seth and colleagues, with an educational kristal from [employer]. Thrive Questionnaire Date Thrive assessed: 07/04/24 I am a: Patient What is your living situation today?: I have a steady place to live Within the past 12 months, did the food you bought not last and you didn't have the money to get more?: Never true Within the past 12 months, did you worry whether your food would run out before you got money to buy more?: Never true Do you have trouble paying for medicines?: No Do you have trouble getting transportation to medical appointments?: No Do you have trouble paying your heating and electricity bill?: No Do you have trouble taking care of your child, family member or friend?: No Do you have trouble with day-to-day activities such as bathing, preparing meals, shopping, managing finances, etc.?: No Are you currently unemployed and looking for a job?: No Are you interested in more education?: No Please select the resources that you would like help with: None Currently or been in a relationship where the following occur: No concerns reported THRIVE Score: 0 AUDIT C Alcohol Use Questionnaire (AUDIT-C) 1. How often do you have a drink containing alcohol?: Never Total Score: 0 Score Reviewed/Action Taken: No SUSI-7 AMB Questionnaire SUSI-7 Date SUSI - 7 assessed: 07/04/24 Feeling nervous, anxious, or on edge: 0 = Not at all Not being able to stop or control worryin = Not at all Worrying too much about different things: 0 = Not at all Trouble relaxin = Not at all Being so restless that it is hard to sit still: 0 = Not at all Becoming easily annoyed or irritable: 1 = Several days Feeling afraid as if something awful might happen: 0 = Not at all Total SUSI-7 score (0-4 normal; 5-9 mild; 10-14 moderate; 15-21 severe): 1 Source: Developed by Drs. Jeronimo De Leon, Joy Dominguez, Adonis Seth and colleagues, with an educational kristal from [employer]. SUSI-7 Assessment Billing SUSI-7 Assessment Tool: SUSI-7 Assessment 28385 Review of Systems Const All systems reviewed & are unremarkable except as noted in HPI and below Card Denies chest pain at rest, Denies chest pain with activity, Denies edema, Denies irregular heart rhythm, Denies claudication, Denies dyspnea, Denies dyspnea on exertion, Denies orthopnea, Denies paroxysmal nocturnal dyspnea and Denies slow heart rate Resp Denies cough, Denies dyspnea and Denies dyspnea on exertion GI Denies abdominal pain, Denies change in bowel habits, Denies excessive flatus, Denies nausea and Denies vomiting Denies urinary incontinence, Denies urinary hesitancy and Denies urinary urgency Physical exam (Primary Care) Vital Signs: Last Vital Signs Temp 96.9 F 01/04/25 10:32 Pulse 78 01/04/25 10:32 Resp 18 01/04/25 10:32 BP 120/60 01/04/25 10:32 Pulse Ox 95 01/04/25 10:32 Oxygen Delivery Method Room Air 01/04/25 10:32 BMI result Body Mass Index 30.2 BMI Assessment/Plan discussion: High BMI High, discussed plan: lifestyle, weight reduction, dietary and physical activity Tobacco/Smoking Status: Tobacco use Status Tobacco use date assessed 01/04/25 01/04/25 10:43 Patient Tobacco Use Status Never used Tobacco 01/04/25 10:43 Tobacco use type Cigarette 01/04/25 10:43 e-Cigarette/Vaping Use Never Used 01/04/25 10:43 PHQ-9: PHQ-9 Score PHQ-9: Total score 5 01/04/25 10:48 Depression Screening Interpretation: Positive Depression Screening Follow-up: Existing condition and Follow-up Visit Requested Thrive Assessment: Date of Thrive Assessment Date Thrive assessed 07/04/24 01/04/25 10:43 Currently or been in a relationship where the following occur: No concerns reported Resp Effort & Inspection: normal respiratory effort Auscultation: clear to auscultation bilaterally Cardio Jugular venous distension: no JVD Rate: regular rate Rhythm: regular rhythm Heart sounds: S1 normal heart sound present and S2 normal heart sound present Extrem General: Yes full ROM Coding Level of Care Code Est Pt Level 4 (85273) Complex EM visit Add On G2211 Diagnoses Dysphonia R49.0 Hypovitaminosis D E55.9 Chronic constipation K59.09 Urge urinary incontinence N39.41 Lumbar pain M54.50 Additional Codes SUSI-7 Assessment Billing - SUSI-7 Assessment Tool: SUSI-7 Assessment 46702 ([id number]) PHQ-9 - 96172 - PHQ-9 Billing: Yes ([id number]) Time Spent (min) 22 Assessment & Plan Assessment & Plan (1) Dysphonia: Code(s): R49.0 - Dysphonia Category: Medical (2) Hypovitaminosis D: Code(s): E55.9 - Vitamin D deficiency, unspecified Category: Medical (3) Chronic constipation: Comment: Pleasant 75-year-old female follows up after recent colonoscopy no polyps. She is very happy. Reinforced importance of High-fiber diet, as well as consistent bowel regimen colace q.h.s., MiraLax We reviewed procedure report avoid straining. hemorrhoidal cream that has been effective. Asymptomatic screening colonoscopy 10 years Encouraged to call questions or concerns Code(s): K59.09 - Other constipation Category: Medical (4) Urge urinary incontinence: Code(s): N39.41 - Urge incontinence Category: Medical (5) Lumbar pain: Code(s): M54.50 - Low back pain, unspecified Category: Medical Plan Plan Patient was informed and verbally consented to the use of an ambient scribe for clinic note documentation during this visit. 1. Allergic Rhinitis The patient is being followed up for allergic rhinitis, with no new interventions discussed during this visit. 2. Urge Urinary Incontinence The patient is managing urge urinary incontinence with Myrbetriq, which is reported to be effective. She continues to follow up with [facility] for this condition. 3. Constipation The patient reports constipation, but no specific management plan was discussed during this visit. 4. Memory Loss The patient reports memory loss and declined both a neurology referral and an MRI of the brain. Thyroid and vitamin B12 testing were recommended due to their association with memory impairment. 5. Dysphonia The patient has been referred to a NeuroLaryngologist at [facility] for further evaluation of dysphonia. Speech therapy is scheduled to begin in February. Orders: Orders Vitamin B12 and Folate Today E53.8 - Deficiency of other specified B group vitamins Thyroid Stimulating Hormone Today R41.3 - Other amnesia Medications: New celecoxib (Celebrex) 100 mg PO BID PRN 10 caps 0RF pain 5 days Refilled aspirin 81 mg PO DAILY 90 tabs 1RF 90 days docusate sodium (Colace) 200 mg (2 x 100 mg) PO BEDTIME 60 caps 5RF polyethylene glycol 3350 (Miralax) 17 grams PO DAILY 510 grams 2RF
--- OUTSIDE RECORDS SUMMARY | 2025-01-04 11:27 | XMS_ITS | Encounter Summary ---
Author Organization [facility] Address [address] [place] [address] [address] [place] [address] Care Team Providers Care Commissioning Agent Name Role Phone Obdulio Aguirre Primary Care Provider Unavail able Encounter Details Date Type Department Care Team (Latest Contact Info) Description 03/19/2021 Abstract [facility] CONVERSIONS Dental, Provider, DDS Social History Tobacco [...] Description 01/20/2025 8:00 AM EDT Office Visit [facility]ULT [facility] [address] [place] [address] Francois Smalls DDS [address] [place] [address] 06/27/2025 8:45 AM EDT Office Visit [facility] [address] [place] [address] Billy María [address] [place] [address] documented as of this encounter Visit Diagnoses Not on filedocumented in this encounter Care Teams Commissioning Agent Relationship Specialty Start Date End Date Obdulio Aguirre AGNP PCP - General Family Medicine 01/28/22 12/28/22 documented as of this encounter
--- OUTSIDE RECORDS SUMMARY | 2025-01-04 11:27 | XMS_ITS | Encounter Summary ---
Author Organization [employer] Address [address] [facility] 7t [place] [address] Care Team Providers Care Set Up Mold Technician Name Role Phone Timothy Obdulio HATHAWAY Primary Care Provider Unavail able Encounter Details Date Type Department Care Team (Late Contact Info) Description 06/27/2022 Abstract [facility] ADULT DENTAL [address] [place] [address] Johnnie Baca DMD [address] [place], [place] [phone] Social History Tobacco Use Types Packs/Day Years [...] Description 01/20/2025 8:00 AM EDT Office Visit [facility] [address] [place] [address] Francois Smalls DDS [address] [place], [place] [phone] 06/27/2025 8:45 AM EDT Office Visit [facility] [address] [place] [address] Joseph Cervantesaris [address] [place] [address] documented as of this encounter Visit Diagnoses Not on filedocumented in this encounter Care Teams Set Up Mold Technician Relationship Specialty Start Date End Date Obdulio Aguirre AGNP PCP - General Family Medicine 01/28/22 12/28/22 documented as of this encounter
--- OUTSIDE RECORDS SUMMARY | 2025-01-04 11:27 | XMS_ITS | Clinical Summary ---
Author Organization [address] [facility] Address [address] [place] [address] Phone Care Team Providers Care Pet Counselor Name Role Phone Chela Mansfield MD Primary Care Provider [phone] Surgical History Surgery Date Site/Laterality Comments CATARACT [...] patient's age to complete this topic Insurance [facility] [place] [id number] Care Teams Pet Counselor Relationship Specialty Start Date End Date Chlea Mansfield MD [address] [place] [address] , [address] Physician Associ D/B/A: [facility] Jenny [place] PCP - General Internal Medicine 11/16/20
--- OUTSIDE RECORDS SUMMARY | 2025-01-04 11:27 | XMS_ITS | Encounter Summary ---
Author Organization [employer] Address [address] [facility] 7t [place] [address] Care Team Providers Care Automatic Fabric Cutter Name Role Phone Timothy Obdulio HATHAWAY Primary Care Provider Unavail able Encounter Details Date Type Department Care Team (Late Contact Info) Description 06/25/2022 Abstract [facility] ADULT DENT[facility] [address] [place] [address] Johnnie Baca DMD [address] [place], [place] [phone] Social History Tobacco Use Types Packs/Day Years [...] [facility] [address] [place], [place] [phone] Francois Smalls DDS [address] [place], [place] [phone] 06/27/2025 8:45 AM EDT Office Visit [facility] [address] [place] [address] Joseph Cervantesaris [address] [place] [address] documented as of this encounter Visit Diagnoses Not on filedocumented in this encounter Care Teams Automatic Fabric Cutter Relationship Specialty Start Date End Date Obdulio Aguirre AGNP PCP - General Family Medicine 01/28/22 12/28/22 documented as of this encounter
--- OUTSIDE RECORDS SUMMARY | 2025-01-04 11:27 | XMS_ITS | Encounter Summary ---
Author Organization [facility] Address [address] [facility] 7t [place] [address] Care Team Providers Care Relay Tester Name Role Phone Obdulio Aguirre Primary Care Provider Unavail able Encounter Details Date Type Department Care Team (Latest Contact Info) Description 02/10/2020 Abstract [facility] CONVERSIONS Dental, Provider, DDS Social History Tobacco [...] 8:00 AM EDT Office Visit [facility]ULT [facility] [address] [place] [address] Francois Smalls DDS [address] [place] [address] 06/27/2025 8:45 AM EDT Office Visit [facility] [address] [place] [address] Billy María [address] [place] [address] documented as of this encounter Visit Diagnoses Not on filedocumented in this encounter Care Teams Relay Tester Relationship Specialty Start Date End Date Obdulio Aguirre AGNP PCP - General Family Medicine 01/28/22 12/28/22 documented as of this encounter
--- OUTSIDE RECORDS SUMMARY | 2025-01-04 11:27 | XMS_ITS | Encounter Summary ---
Author Organization [employer] [facility] Address [address] [place] [address] 7t [place] [address] Care Team Providers Care Early Morning Name Role Phone Obdulio Aguirre RIVAS Primary Care Provider Unavail able Encounter Details Date Type Department Care Team (Late st Contact Info) Description 03/19/2022 Abstract [facility] ADULT DENT[facility] [address] [place] [address] Dental, Provider, DDS Social History Tobacco Use [...] Description 01/20/2025 8:00 AM EDT Office Visit [facility] [address] [place] [address] Francois Smalls DDS [address] [place] [address] 06/27/2025 8:45 AM EDT Office Visit [facility] [address] [place] [address] María Cervantes [address] [place] [address] documented as of this encounter Procedures Procedure [...] on filedocumented in this encounter Care Teams Early Morning Relationship Specialty Start Date End Date Obdulio Aguirre AGNP PCP - General Family Medicine 01/28/22 12/28/22 documented as of this encounter
--- OUTSIDE RECORDS SUMMARY | 2025-01-04 11:27 | XMS_ITS | Encounter Summary ---
Author Organization [employer] Address [address] [facility] 7t [place] [address] Care Team Providers Care Miner Helper Name Role Phone Timothy Obdulio HATHAWAY Primary Care Provider Unavail able Encounter Details Date Type Department Care Team (Late Contact Info) Description 07/10/2022 Abstract [facility] ADULT D[facility] [address] [place] [address] Johnnie Baca DMD [address] [place], [place] [phone] Social History Tobacco Use Types Packs/Day Years [...] Office Visit [facility] ADULT D[facility] [address] [place], [place] [phone] Francois Smalls DDS [address] [place], [place] [phone] 06/27/2025 8:45 AM EDT Office Visit [facility] ADULT D[facility] [address] [place] [address] Joseph Cervantesaris [address] [place] [address] documented as of this encounter Visit Diagnoses Not on filedocumented in this encounter Care Teams Miner Helper Relationship Specialty Start Date End Date Obdulio Aguirre AGNP PCP - General Family Medicine 01/28/22 12/28/22 documented as of this encounter
--- OUTSIDE RECORDS SUMMARY | 2025-01-04 11:27 | XMS_ITS | Encounter Summary ---
Author Organization [employer] [facility] Address [address] [facility] 7t [place] [address] Care Team Providers Care Complaint Evaluation Supervisor Name Role Phone Obdulio Aguirre Primary Care Provider Unavail able Encounter Details Date Type Department Care Team (Latest Contact Info) Description 03/10/2019 Abstract [facility] CONVERSIONS Dental, Provider, DDS Social History [...] Description 01/20/2025 8:00 AM EDT Office Visit [facility] ADULT DENTAL [address] [place] [address] Francois Smalls DDS [address] [place] [address] 06/27/2025 8:45 AM EDT Office Visit [facility] ADULT DENT[facility] [address] [place] [address] Billy María [address] [place] [address] documented as of this encounter Visit Diagnoses Not on filedocumented in this encounter Care Teams Complaint Evaluation Supervisor Relationship Specialty Start Date End Date Obdulio Aguirre AGNP PCP - General Family Medicine 01/28/22 12/28/22 documented as of this encounter
--- OUTSIDE RECORDS SUMMARY | 2025-01-04 11:27 | XMS_ITS | Encounter Summary ---
Author Organization [employer] Address [address] [facility] [address]t [place] [address] Care Team Providers Care Weaver Tire Cord Name Role Phone Timothy Obdulio HATHAWAY Primary Care Provider Unavail able Encounter Details Date Type Department Care Team (Late Contact Info) Description 06/20/2022 Abstract [facility] ADULT D[facility] [address] [place] [address] Johnnie Baca DMD [address] [place], [place] [phone] Social History Tobacco Use Types Packs/Day Years [...] Description 01/20/2025 8:00 AM EDT Office Visit [facility] [address] [place], [place] [phone] Francois Smalls DDS [address] [place], [place] [phone] 06/27/2025 8:45 AM EDT Office Visit [facility] [address] [place] [address] Joseph Cervantesaris [address] [place] [address] documented as of this encounter Visit Diagnoses Not on filedocumented in this encounter Care Teams Weaver Tire Cord Relationship Specialty Start Date End Date Obdulio Aguirre AGNP PCP - General Family Medicine 01/28/22 12/28/22 documented as of this encounter
--- OUTSIDE RECORDS SUMMARY | 2025-01-04 11:27 | XMS_ITS | Encounter Summary ---
Author Organization [employer] Address [address] [facility] 7t [place] [address] Care Team Providers Care Mass Spectrometry Manager Name Role Phone Obdulio Aguirre RIVAS Primary Care Provider Unavail able Encounter Details Date Type Department Care Team (Late Contact Info) Description 07/17/2022 Abstract [facility] ADULT DENTAL [address] [place] [address] Susan Willams DDS [address] [place] [address] Social History Tobacco Use Types Packs/Day Years [...] Description 01/20/2025 8:00 AM EDT Office Visit [facility]ULT [facility] [address] [place] [address] Francois Smalls DDS [address] [place] [address] 06/27/2025 8:45 AM EDT Office Visit [facility] ADULT D[facility] [address] [place] [address] Joseph Cervantesaris [address] [place] [address] documented as of this encounter Visit Diagnoses Not on filedocumented in this encounter Care Teams Mass Spectrometry Manager Relationship Specialty Start Date End Date Obdulio Aguirre AGNP PCP - General Family Medicine 01/28/22 12/28/22 documented as of this encounter
--- OUTSIDE RECORDS SUMMARY | 2025-01-04 11:27 | XMS_ITS | Encounter Summary ---
Author Organization [employer] [facility] Address [address] [place] [address] 7t [place] [address] Care Team Providers Care Tooling Supervisor Name Role Phone Obdulio Aguirre Primary Care Provider Unavail able Encounter Details Date Type Department Care Team (Latest Contact Info) Description 09/18/2021 Abstract [facility] CONVERSIONS Dental, Provider, DDS Social [...] 01/20/2025 8:00 AM EDT Office Visit [facility] ADULT DENTAL [address] [place] [address] Francois Smalls DDS [address] [place] [address] 06/27/2025 8:45 AM EDT Office Visit [facility] ADULT DENTAL [address] [place] [address] Billy María [address] [place] [address] documented as of this encounter Visit Diagnoses Not on filedocumented in this encounter Care Teams Tooling Supervisor Relationship Specialty Start Date End Date Obdulio Aguirre AGNP PCP - General Family Medicine 01/28/22 12/28/22 documented as of this encounter
--- OUTSIDE RECORDS SUMMARY | 2025-01-04 11:27 | XMS_ITS | Encounter Summary ---
Author Organization [employer] Address [address] [facility] 7t [place] [address] Care Team Providers Care Food Service Worker Name Role Phone Aguirre Obdulio HATHAWAY Primary Care Provider Unavail able Reason for Visit * Reason Onset Date Comments Appointment 07/28/2022 Jennifer Welch Patient called in and wanted to know if crown is in office to be able to give her appt please advise. Encounter Details Date Type Department Care Team ([facility] Contact Info) Description 07/28/2022 Telephone [facility] ADULT DENTAL [address] [place] [address] Johnnie Baca, DMD [address] [place] [address] Appointment (Jennifer Welch 1945 Patient called in [...] 01/20/2025 8:00 AM EDT Office Visit [facility] ADULT DENTAL [address] [place] [address] Francois Smalls DDS [address] [place] [address] 06/27/2025 8:45 AM EDT Office Visit [facility] ADULT DENTAL [address] [place] [address] María Cervantes [address] [place] [address] documented as of this encounter Visit Diagnoses Not on filedocumented in this encounter Care Teams Food Service Worker Relationship Specialty Start Date End Date Obdulio Aguirre AGNP PCP - General Family Medicine 01/28/22 12/28/22 documented as of this encounter
--- OUTSIDE RECORDS SUMMARY | 2025-01-04 11:27 | XMS_ITS | Encounter Summary ---
Author Organization [employer] Address [address] [place] [address] Care Team Providers Care Salesperson Toy Trains And Accessories Name Role Phone Chela Mansfield MD Primary Care Provider [phone] Encounter Details Date Type Department Care Team (Late st Contact Info) Description 08/08/[address] [facility] - Main Lab [address] [facility] [place] [address] Maricel Clemente PA [address] [place], [place] [phone] Urinary tract infection, site not specified; Dysuria [...] Urine No growth 08/09/2024 10:21 AM EDT [facility] Urine Urine specimen obtained by clean catch procedure / Unknown 08/08/2024 9:45 AM EDT 08/08/2024 12:13 PM EDT us Mar[facility] MICROBIOLOGY - GENERAL ORD ERABLES Final Result [facility] [address] [place] [address], documented in this encounter Visit Diagnoses Diagnosis Urinary tract infection, site not specified Dysuria documented in this encounter Care Teams Salesperson Toy Trains And Accessories Relationship Specialty Start Date End Date Chela Mansfield MD [address] [facility] , [address] [place] [address] Physician Associ D/B/A: [facility] MICHELLE Alvarado PCP - General Internal Medicine 11/16/20 documented as of this encounter
--- OUTSIDE RECORDS SUMMARY | 2025-01-04 11:27 | XMS_ITS | Encounter Summary ---
Author Organization [employer] Address [address] [facility] 7t [place] [address] Care Team Providers Care Clinical Data Coordinator Name Role Phone Obdulio Aguirre RIVAS Primary Care Provider Unavail able Encounter Details Date Type Department Care Team (Late Contact Info) Description 07/10/2022 Abstract [facility] ADULT DENTAL [address] [place] [address] Susan Willams DDS [address] [place] [address] Social History Tobacco Use Types Packs/Day Years [...] Description 01/20/2025 8:00 AM EDT Office Visit [facility] ADULT DENTAL [address] [place] [address] Francois Smalls DDS [address] [place] [address] 06/27/2025 8:45 AM EDT Office Visit [facility] ADULT DENTAL [address] [place] [address] Joseph Cervantesaris [address] [place] [address] documented as of this encounter Visit Diagnoses Not on filedocumented in this encounter Care Teams Clinical Data Coordinator Relationship Specialty Start Date End Date Obdulio Aguirre AGNP PCP - General Family Medicine 01/28/22 12/28/22 documented as of this encounter
--- OUTSIDE RECORDS SUMMARY | 2025-01-04 11:27 | XMS_ITS | Clinical Summary ---
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 Vitamin D deficiency 04/05/2013 Allergic rhinitis 10/09/2011 Backache 10/09/2011 Constipation 10/09/2011 Midline cystocele 10/09/2011 Varicose veins of lower extremity 10/09/2011 Encounters Date Type Department Care Team Description 12/27/2024 10:00 AM EDT [facility] [address] [place] [address] Billy, María Partial edentulism, unspecified edentulism class (Primary Dx); Dental plaque; Tipped teeth; Localized gingival recession; Ill-fitting dentures 12/15/2024 9:00 AM EDT [facility] [address] [place] [address] Francois mSalls DDS Closed fracture of tooth, initial encounter [...] 01/20/2025 8:00 AM EDT [facility] [address] [place] [address] Francois Smalls DDS [address] [place] [address] 06/27/2025 8:45 AM EDT [facility] [address] [place] [address] María Cervantes [address] [place] [address] Health Maintenance Due Date Last Done Comments [...] AM EDT from Last 3 Months Insurance [facility] MEDICARE DENTAL - [facility]
--- OUTSIDE RECORDS SUMMARY | 2025-01-04 11:27 | XMS_ITS | Encounter Summary ---
Author Organization [employer] Address [address] [facility] 7t [place] [address] Care Team Providers Care Mailer Name Role Phone Timothy Obdulio HATHAWAY Primary Care Provider Unavail able Encounter Details Date Type Department Care Team (Late Contact Info) Description 06/19/2022 Abstract [facility] ADULT DENTAL [address] [place] [address] Johnnie Baca DMD [address] [place], [place] [phone] Social History Tobacco Use Types Packs/Day Years [...] Description 01/20/2025 8:00 AM EDT Office Visit [facility] ADULT DENTAL [address] [place], [place] [phone] Francois Smalls DDS [address] [place], [place] [phone] 06/27/2025 8:45 AM EDT Office Visit [facility] ADULT DENTAL [address] [place] [address] Joseph Cervantesaris [address] [place] [address] documented as of this encounter Visit Diagnoses Not on filedocumented in this encounter Care Teams Mailer Relationship Specialty Start Date End Date Obdulio Aguirre AGNP PCP - General Family Medicine 01/28/22 12/28/22 documented as of this encounter
== END 2025-01-04 10:56 | disposition home or self-care (01) ==
LOC: HO.HMCH 09:39
PROVIDERS: PCP Internal Medicine; Visit Provider Internal Medicine
DX: R49.0 Dysphonia (principal); E55.9 Vitamin D deficiency, unspecified; K59.09 Other constipation; N39.41 Urge incontinence; M54.50 Low back pain, unspecified

== ENCOUNTER 2025-01-04 09:38 | Outpatient (REF) | payer OTHER, SELFPAY ==
[2025-01-04 13:05] LABS: Thyroid Stimulating Hormone 1.02 uIU/mL (0.32-4.0)
[2025-01-04 13:23] LABS: Folate > 20.0 ng/mL (> or = 4.0); Vitamin B12 495 pg/mL (200-900)
== END 2025-01-04 09:39 | disposition home or self-care (01) ==
LOC: HO.LAB 09:38
PROVIDERS: PCP Internal Medicine; Visit Provider Internal Medicine
DX: R41.3 Other amnesia (principal); E53.8 Deficiency of other specified B group vitamins; R49.0 Dysphonia; E55.9 Vitamin D deficiency, unspecified; K59.09 Other constipation; N39.41 Urge incontinence; M54.50 Low back pain, unspecified
CPT/HCPCS: 36415; 82607; 82746; 84443; 96127; 99212

== ENCOUNTER 2025-01-31 11:40 | Outpatient (AMB) | payer OTHER, SELFPAY ==
[2025-01-31 13:07] VITALS: BMI 30.1
--- NOTE | 2025-01-31 13:07 | MHC.OFFVIS ---
Vital Signs 01/31/25 13:07 Height 4 ft 9 in Weight 139 lb BMI 30.1 Intake Visit Reasons: OV- RT index & RT ring trigger finger f/u Intake Note: Jennifer is a 79 year old left hand dominant female who presents today for follow up of her Right Index & Right Ring Trigger Fingers. She was last seen on 11/03/24 where she was given a right ring trigger finger injection. Due to the pain, patient decided to hold off on injecting her right index finger. Patient was informed if she continued having locking & catching for 4-6 weeks alternative options could be discussed. Patient reports today she is not interested on injections. She would like to discuss scheduling surgery in a few months as she will be traveling soon. She would also like to know if there is anything she can do in the meantime to help her right ring finger as it continues to trigger. Wood Finisher Apprentice Required: Yes Wood Finisher Apprentice Language: Supervisor Last Model Department Services: Wood Finisher Apprentice Present Wood Finisher Apprentice Name: Joey RMA/LM Allergies apple (Apple) Allergy (Severe, Verified 01/31/25 13:08) THROAT SWELLING pear (Pear) Allergy (Severe, Verified 01/31/25 13:08) THROAT SWELLING banana (BANANA) Allergy (Intermediate, Verified 01/31/25 13:08) HIVES,THROAT SWELLING latex Allergy (Intermediate, Verified 01/31/25 13:08) Rash nystatin Allergy (Intermediate, Verified 01/31/25 13:08) swelling nuts Allergy (Severe, Uncoded 01/31/25 13:08) anaphylaxis fruits Allergy (Intermediate, Uncoded 01/31/25 13:08) anaphylaxis HPI HPI OV- RT index & RT ring trigger finger f/u: Details: Jennifer is a 79 year old left hand dominant female who presents today for follow up of her Right Index & Right Ring Trigger Fingers. She was last seen on 11/03/24 where she was given a right ring trigger finger injection. Due to the pain, patient decided to hold off on injecting her right index finger. Patient was informed if she continued having locking & catching for 4-6 weeks alternative options could be discussed. Patient reports today she is not interested on injections, has right ring finger trigger injection was only effective for a few days, and she continues to experience locking and catching of the right ring finger.. She would like to discuss scheduling surgery in a few months as she will be traveling soon. She would also like to know if there is anything she can do in the meantime to help her right ring finger as it continues to trigger. [facility] Medical History Internal and external thrombosed hemorrhoids Postmenopausal Physical exam Headache Low back pain Seasonal allergies Abdominal gas pain Right shoulder pain Left hip pain Right elbow pain Hypovitaminosis D Chronic constipation Surgical History History of tooth extraction Hx of colonoscopy Hx of cataract extraction Family History Father Throat cancer Mother Cancer of unknown origin Social History Household Members Other:: alone Housing: Apartment Alcohol intake: current Alcohol intake frequency: holidays/special occasions only Alcohol type: wine and hard liquor Patient Tobacco Use Status: Never used Tobacco Tobacco use type: Cigarette e-Cigarette/Vaping Use: Never Used Second Hand Smoke Exposure: No service: No Current occupational status: disabled Cognitive needs: No Hearing needs: Yes Vision needs: Yes Review of Systems Const All systems reviewed & are unremarkable except as noted in HPI and below Physical Exam Vital Signs: BMI result Body Mass Index 30.1 Extrem Other: Patient is alert, oriented, and in no acute distress. Neuro: Normal sensation of the tips of all digits of the right hand at this time Vascular: Cap refill brisk Pain: Tenderness to palpation of the A1 pulleys of the right index and ring fingers Pain associated with locking and catching ROM: There is visible and palpable locking and catching of the right index and ring fingers in the office today Range of motion of other digits of the right hand full and intact Skin: No lacerations or abrasions. General: No ecchymosis, erythema, or evidence of infection. Psych: Appears grossly normal Affect normal Attitude cooperative Assessment & Plan Assessment & Plan (1) Trigger finger, right ring finger: Code(s): M65.341 - Trigger finger, right ring finger Category: Medical (2) Trigger finger, right index finger: Code(s): M65.321 - Trigger finger, right index finger Category: Medical Plan 1. Right index finger trigger finger 2. Right ring finger trigger finger Patient is educated about this condition Patient is educated about the treatment options available At this time, patient would like to proceed with surgical intervention, but is going to hold off for a few months, as she is traveling to see her sisters who she states will likely pass away soon and she is not exactly sure upon her date of return Patient is educated that once she does return, she should call our office for another appointment and discussion of surgical intervention Patient understands this and is amenable to this plan Follow-up as needed Coding Level of Care Code Est Pt Level 3 (17112) Diagnoses Trigger finger, right ring finger M65.341 Trigger finger, right index finger M65.321
--- OUTSIDE RECORDS SUMMARY | 2025-01-31 14:16 | XMS_ITS | Encounter Summary ---
Author Organization [employer] Address [address] [facility] 7t [place] [address] Care Team Providers Care Industrial Relations Specialist Name Role Phone Aguirre Obdulio HATHAWAY Primary Care Provider Unavail able Reason for Visit * Reason Onset Date Comments Appointment 07/28/2022 Jennifer Welch Patient called in and wanted to know if crown is in office to be able to give her appt please advise. Encounter Details Date Type Department Care Team ([facility] Contact Info) Description 07/28/[address] [facility] ADULT DENTAL [address] [place] [address] Johnnie Baca, DMD [address] [place] [address] Appointment (Jennifer Welch 1945 Patient called in [...] Miscellaneous Notes * Telephone Encounter - Antonietta Quirozgas - 07/28/2022 2:11 PM EDT Jennifer Welch LEI 1945 Patient called in and wanted to know if crown is in office to be able to give her appt please advise documented in this encounter Plan of Treatment Upcoming Encounters Date Type Department Care Team (Late st Contact Info) Description 06/27/2025 8:45 AM EDT Office Visit [facility] ADULT DENTAL [address] [place] [address] Billy, María [address] [place] [address] documented as of this encounter Visit Diagnoses Not on filedocumented in this encounter Care Teams Industrial Relations Specialist Relationship Specialty Start Date End Date Obdulio Aguirre AGNP PCP - General Family Medicine 01/28/22 12/28/22 documented as of this encounter
--- OUTSIDE RECORDS SUMMARY | 2025-01-31 14:16 | XMS_ITS | Encounter Summary ---
Author Organization [employer] Address [address] [facility] 7t [place] [address] Care Team Providers Care Fish Hatchery Superintendent Name Role Phone Aguirre Obdulio HATHAWAY Primary Care Provider Unavail able Encounter Details Date Type Department Care Team (Late Contact Info) Description 06/25/2022 Abstract [facility] ADULT DENTAL [address] [place] [address] Johnnie Baca, ZACH [address] [place], [place] [phone] Social History Tobacco Use Types Packs/Day Years [...] Department Care Team (Late Contact Info) Description 06/27/2025 8:45 AM EDT Office Visit [facility] ADULT DENTAL [address] [place], [place] [phone] María Cervantes [address] [place] [address] documented as of this encounter Visit Diagnoses Not on filedocumented in this encounter Care Teams Fish Hatchery Superintendent Relationship Specialty Start Date End Date Obdulio Aguirre AGNP PCP - General Family Medicine 01/28/22 12/28/22 documented as of this encounter
--- OUTSIDE RECORDS SUMMARY | 2025-01-31 14:16 | XMS_ITS | Encounter Summary ---
Author Organization [employer] [facility] Address [address] [facility] 7t [place] [address] Care Team Providers Care Ep Tech Name Role Phone Aguirre Obdulio HATHAWAY Primary Care Provider Unavail able Encounter Details Date Type Department Care Team (Late st Contact Info) Description 03/19/2022 Abstract [facility] ADULT DENTAL [address] [place] [address] Dental, Provider, DDS Social History Tobacco Use [...] Description 06/27/2025 8:45 AM EDT Office Visit [facility] ADULT DENTAL [address] [place] [address] María Cervantes [address] [place] [address] documented as of this encounter Procedures Procedure Name Priority Date/Time Associated Diagnosis Comments 19,29,30,31 PARTIAL DENTURE - RESIN Routine 03/19/2022 12:00 AM EST 12 PREFABRICATED POST AND CORE IN ADDITION TO CROWN Routine 03/19/2022 12:00 AM EST 12 CROWN - PORCELAIN/CERAMIC Routine 03/19/2022 12:00 AM EST 2 CROWN - PORCELAIN/CERAMIC Routine 03/19/2022 12:00 AM EST 28 DOL COMPOSITE FILLING Routine 022 12:00 AM EST 15 DOL COMPOSITE FILLING [...] on filedocumented in this encounter Care Teams Ep Tech Relationship Specialty Start Date End Date Obdulio Aguirre AGNP PCP - General Family Medicine 01/28/22 12/28/22 documented as of this encounter
--- OUTSIDE RECORDS SUMMARY | 2025-01-31 14:16 | XMS_ITS | Clinical Summary ---
Author Organization [address] [facility] Address [address] [place] [address] Phone Care Team Providers Care Flower Shop Laborer/Designer Name Role Phone Chela Mansfield MD Primary Care Provider [phone] Surgical History Surgery Date Site/Laterality Comments CATARACT [...] patient's age to complete this topic Insurance [facility] [place] [id number] Care Teams Flower Shop Laborer/Designer Relationship Specialty Start Date End Date Chela Mansfield MD [address] [place] [address] , [address] Physician Associ D/B/A: [facility] Jenny [place] PCP - General Internal Medicine 11/16/20
--- OUTSIDE RECORDS SUMMARY | 2025-01-31 14:16 | XMS_ITS | Encounter Summary ---
Author Organization [employer] Address 75 [facility] 7t [place] [address] Care Team Providers Care Building Architectural Designer Name Role Phone Obdulio Aguirre RIVAS Primary Care Provider Unavail able Encounter Details Date Type Department Care Team (Late Contact Info) Description 07/10/2022 Abstract [facility] ADULT DENTAL [address] [place] [address] Susan Willams, ROMANS [address] [place], [place] [phone] Social History Tobacco Use Types Packs/Day Years [...] [facility] [address] [place] [address] María Cervantes [address] [place] [address] documented as of this encounter Visit Diagnoses Not on filedocumented in this encounter Care Teams Building Architectural Designer Relationship Specialty Start Date End Date Obdulio Aguirre AGNP PCP - General Family Medicine 01/28/22 12/28/22 documented as of this encounter
--- OUTSIDE RECORDS SUMMARY | 2025-01-31 14:16 | XMS_ITS | Encounter Summary ---
Author Organization [employer] Address [address] [facility] 7t [place] [address] Care Team Providers Care Public Policy Analyst Name Role Phone Aguirre Obdulio HATHAWAY Primary Care Provider Unavail able Encounter Details Date Type Department Care Team (Late Contact Info) Description 06/20/2022 Abstract [facility] ADULT DENTAL [address] [place] [address] Johnnie Baca, ZACH [address] [place], [place] [phone] Social History Tobacco Use Types Packs/Day Years [...] Description 06/27/2025 8:45 AM EDT Office Visit [facility] ADULT DENTAL [address] [place], [place] [phone] María Cervantes [address] [place] [address] documented as of this encounter Visit Diagnoses Not on filedocumented in this encounter Care Teams Public Policy Analyst Relationship Specialty Start Date End Date Obdulio Aguirre AGNP PCP - General Family Medicine 01/28/22 12/28/22 documented as of this encounter
--- OUTSIDE RECORDS SUMMARY | 2025-01-31 14:16 | XMS_ITS | Encounter Summary ---
Author Organization [employer] Address [address] [facility] 7t [place] [address] Care Team Providers Care Metal Reclamation Kettle Tender Name Role Phone Aguirre Obdulio HATHAWAY Primary Care Provider Unavail able Encounter Details Date Type Department Care Team (Late Contact Info) Description 06/27/2022 Abstract [facility] ADULT DENTAL [address] [place] [address] Johnnie Baca, ZACH [address] [place], [place] [phone] Social History Tobacco Use Types Packs/Day Years [...] 06/27/2025 8:45 AM EDT Office Visit [facility] ADULT DENTAL [address] [place] [address] María Cervantes [address] [place] [address] documented as of this encounter Visit Diagnoses Not on filedocumented in this encounter Care Teams Metal Reclamation Kettle Tender Relationship Specialty Start Date End Date Obdulio Aguirre AGNP PCP - General Family Medicine 01/28/22 12/28/22 documented as of this encounter
--- OUTSIDE RECORDS SUMMARY | 2025-01-31 14:16 | XMS_ITS | Encounter Summary ---
Author Organization [employer] Address [address] [facility] 7t [place] [address] Care Team Providers Care Cath Lab Tech Name Role Phone Aguirre Obdulio HATHAWAY Primary Care Provider Unavail able Encounter Details Date Type Department Care Team (Late Contact Info) Description 06/19/2022 Abstract [facility] ADULT DENTAL [address] [place] [address] Johnnie Baca, ZACH [address] [place], [place] [phone] Social History Tobacco Use Types Packs/Day Years [...] Description 06/27/2025 8:45 AM EDT Office Visit [facility] ADULT DENTAL [address] [place], [place] [phone] María Cervantes [address] [place] [address] documented as of this encounter Visit Diagnoses Not on filedocumented in this encounter Care Teams Cath Lab Tech Relationship Specialty Start Date End Date Obdulio Aguirre AGNP PCP - General Family Medicine 01/28/22 12/28/22 documented as of this encounter
--- OUTSIDE RECORDS SUMMARY | 2025-01-31 14:16 | XMS_ITS | Encounter Summary ---
Author Organization [employer] Address [address] [facility] 7t [place] [address] Care Team Providers Care Consulting Services Manager Name Role Phone Obdulio Aguirre RIVAS Primary Care Provider Unavail able Encounter Details Date Type Department Care Team (Late Contact Info) Description 07/17/2022 Abstract [facility] ADULT DENTAL [address] [place] [address] Susan Willams, ROMANS [address] [place], [place] [phone] Social History Tobacco Use Types Packs/Day Years [...] Description 06/27/2025 8:45 AM EDT Office Visit [facility] ADULT DENTAL [address] [place] [address] María Cervantes [address] [place] [address] documented as of this encounter Visit Diagnoses Not on filedocumented in this encounter Care Teams Consulting Services Manager Relationship Specialty Start Date End Date Obdulio Aguirre AGNP PCP - General Family Medicine 01/28/22 12/28/22 documented as of this encounter
--- OUTSIDE RECORDS SUMMARY | 2025-01-31 14:16 | XMS_ITS | Encounter Summary ---
Author Organization [employer] [facility] Address [address] [facility] 7t [place] [address] Care Team Providers Care Assisted Living Administrator Name Role Phone Obdulio Aguirre Primary Care Provider Unavail able Encounter Details Date Type Department Care Team (Latest Contact Info) Description 09/18/2021 Abstract [facility] CONVERSIONS Dental, Provider, DDS Social History Tobacco [...] Upcoming Encounters Date Type Department Care Team ( st Contact Info) Description 06/27/2025 8:45 AM EDT Office Visit [facility] ADULT DENTAL [address] [place] [address] Billy, María [address] [place] [address] documented as of this encounter Visit Diagnoses Not on filedocumented in this encounter Care Teams Assisted Living Administrator Relationship Specialty Start Date End Date Obdulio Aguirre AGNP PCP - General Family Medicine 01/28/22 12/28/22 documented as of this encounter
--- OUTSIDE RECORDS SUMMARY | 2025-01-31 14:16 | XMS_ITS | Encounter Summary ---
Author Organization [employer] Address [address] [facility] 7t [place] [address] Care Team Providers Care Chief Procurement Officer Name Role Phone Aguirre Obdulio HATHAWAY Primary Care Provider Unavail able Encounter Details Date Type Department Care Team (Late Contact Info) Description 07/10/2022 Abstract [facility] ADULT DENTAL [address] [place] [address] Johnnie Baca, ZACH [address] [place], [place] [phone] Social History Tobacco Use Types Packs/Day Years [...] Description 06/27/2025 8:45 AM EDT Office Visit [facility] ADULT DENTAL [address] [place], [place] [phone] María Cervantes [address] [place] [address] documented as of this encounter Visit Diagnoses Not on filedocumented in this encounter Care Teams Chief Procurement Officer Relationship Specialty Start Date End Date Obdulio Aguirre AGNP PCP - General Family Medicine 01/28/22 12/28/22 documented as of this encounter
--- OUTSIDE RECORDS SUMMARY | 2025-01-31 14:16 | XMS_ITS | Encounter Summary ---
Author Organization [employer] [facility] Address [address] [facility] 7t [place] [address] Care Team Providers Care Director Of Volunteer Services Name Role Phone Obdulio Aguirre Primary Care Provider Unavail able Encounter Details Date Type Department Care Team (Latest Contact Info) Description 03/10/2019 Abstract [facility] CONVERSIONS Dental, Provider, DDS Social [...] Description 06/27/2025 8:45 AM EDT Office Visit [facility] ADULT DENTAL [address] [place] [address] Billy, María [address] [place] [address] documented as of this encounter Visit Diagnoses Not on filedocumented in this encounter Care Teams Director Of Volunteer Services Relationship Specialty Start Date End Date Obdulio Aguirre AGNP PCP - General Family Medicine 01/28/22 12/28/22 documented as of this encounter
--- OUTSIDE RECORDS SUMMARY | 2025-01-31 14:16 | XMS_ITS | Encounter Summary ---
Author Organization [employer] [facility] Address [address] [facility] 7t [place] [address] Care Team Providers Care Refinery Operator Assistant Name Role Phone Obdulio Aguirre Primary Care Provider Unavail able Encounter Details Date Type Department Care Team (Latest Contact Info) Description 02/10/2020 Abstract [facility] CONVERSIONS Dental, Provider, DDS Social History Tobacco [...] Description 06/27/2025 8:45 AM EDT Office Visit [facility] ADULT DENTAL [address] [place] [address] Billy, María [address] [place] [address] documented as of this encounter Visit Diagnoses Not on filedocumented in this encounter Care Teams Refinery Operator Assistant Relationship Specialty Start Date End Date Obdulio Aguirre AGNP PCP - General Family Medicine 01/28/22 12/28/22 documented as of this encounter
--- OUTSIDE RECORDS SUMMARY | 2025-01-31 14:16 | XMS_ITS | Encounter Summary ---
Author Organization [employer] [facility] Address [address] [facility] 7t [place] [address] Care Team Providers Care Graffiti Cleaner Name Role Phone Obdulio Aguirre Primary Care Provider Unavail able Encounter Details Date Type Department Care Team (Latest Contact Info) Description 03/19/2021 Abstract [facility] CONVERSIONS Dental, Provider, DDS Social History [...] Description 06/27/2025 8:45 AM EDT Office Visit [facility] ADULT DENTAL [address] [place] [address] Billy, María [address] [place] [address] documented as of this encounter Visit Diagnoses Not on filedocumented in this encounter Care Teams Graffiti Cleaner Relationship Specialty Start Date End Date Obdulio Aguirre AGNP PCP - General Family Medicine 01/28/22 12/28/22 documented as of this encounter
--- OUTSIDE RECORDS SUMMARY | 2025-01-31 14:16 | XMS_ITS | Clinical Summary ---
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 Vitamin D deficiency 04/05/2013 Allergic rhinitis 10/09/2011 Backache 10/09/2011 Constipation 10/09/2011 Midline cystocele 10/09/2011 Varicose veins of lower extremity 10/09/2011 Encounters Date Type Department Care Team Description 12/27/2024 10:00 AM EDT Office Visit [facility]ULT [facility] [address] [place] [address] Billy, María Partial edentulism, unspecified edentulism class (Primary Dx); Dental plaque; Tipped teeth; Localized gingival recession; Ill-fitting dentures 12/15/2024 9:00 AM EDT Office Visit [facility] ADULT DENTAL [address] [place] [address] Francois Smalls DDS Closed fracture of tooth, [...] Description 06/27/2025 8:45 AM EDT Office Visit [facility] ADULT DENTAL [address] [place] [address] Billy, María [address] [place] [address] Health Maintenance Due Date Last Done Comments [...] AM EDT from Last 3 Months Insurance [facility] MEDICARE DENTAL - [facility] SCO
--- OUTSIDE RECORDS SUMMARY | 2025-01-31 14:16 | XMS_ITS | Encounter Summary ---
Author Organization [employer] Address [address] [place] [address] Care Team Providers Care Service Cleaner Name Role Phone Chela Mansfield MD Primary Care Provider [phone] Encounter Details Date Type Department Care Team (Late st Contact Info) Description 08/08/2024 Lab Requisition [facility] - Main Lab [address] [facility] [place] [address] Maricle Clemente PA [address] [place], [place] [phone] Urinary tract infection, site not specified; Dysuria [...] Urine No growth 08/09/2024 10:21 AM EDT [facility] LAB Urine Urine specimen obtained by clean catch procedure / Unknown 08/08/2024 9:45 AM EDT 08/08/2024 12:13 PM EDT us Maricel [facility] MICROBIOLOG[facility] - GENERAL ORD ERABLES Final Result [facility] H[facility] LAB [address] [place] [address], documented in this encounter Visit Diagnoses Diagnosis Urinary tract infection, site not specified Dysuria documented in this encounter Care Teams Service Cleaner Relationship Specialty Start Date End Date Chela Mansfield MD 2 [facility] , [address] [place] [address] Physician Associ D/B/A: [facility] MICHELLE Alvarado PCP - General Internal Medicine 11/16/20 documented as of this encounter
== END 2025-01-31 13:47 | disposition home or self-care (01) ==
LOC: HO.HOS 11:41
PROVIDERS: PCP Internal Medicine
DX: M65.341 Trigger finger, right ring finger (principal); M65.321 Trigger finger, right index finger
CPT/HCPCS: 99214

== ENCOUNTER → 2025-01-31 11:40 | Outpatient (BNVA) | payer OTHER, SELFPAY | PROVIDERS: PCP Internal Medicine | DX: M65.341 Trigger finger, right ring finger (principal); M65.321 Trigger finger, right index finger | CPT/HCPCS: 99212 ==

== ENCOUNTER 2025-03-08 07:46 | Outpatient (REF) | payer OTHER, SELFPAY ==
--- OUTSIDE RECORDS SUMMARY | 2025-03-08 15:19 | XMS_ITS | Encounter Summary ---
Author Organization [employer] Address [address] [facility] 7t [place] [address] Care Team Providers Care Tool Design Checker Name Role Phone Aguirre Obdulio HATHAWAY Primary Care Provider Unavail able Encounter Details Date Type Department Care Team (Late Contact Info) Description 06/19/2022 Abstract [facility] ADULT DENTAL [address] [place] [address] Johnnie Baca, ZACH [address] [place], [place] [phone] Social History Tobacco Use Types Packs/Day Years [...] Description 06/27/2025 8:45 AM EDT Office Visit [facility] ADULT DENTAL [address] [place], [place] [phone] María Cervantes [address] [place] [address] documented as of this encounter Visit Diagnoses Not on filedocumented in this encounter Care Teams Tool Design Checker Relationship Specialty Start Date End Date Obdulio Aguirre AGNP PCP - General Family Medicine 01/28/22 12/28/22 documented as of this encounter
--- OUTSIDE RECORDS SUMMARY | 2025-03-08 15:19 | XMS_ITS | Encounter Summary ---
Author Organization [employer] Address [address] [facility] 7t [place] [address] Care Team Providers Care Battery Vent Plug Inserter Name Role Phone Aguirre Obdulio HATHAWAY Primary Care Provider Unavail able Encounter Details Date Type Department Care Team (Late Contact Info) Description 06/20/2022 Abstract [facility] ADULT DENTAL [address] [place] [address] Johnnie Baca, ZACH [address] [place], [place] [phone] Social History Tobacco Use Types Packs/Day Years [...] AM EDT Office Visit [facility] ADULT DENTAL [address] [place], [place] [phone] María Cervantes [address] [place] [address] documented as of this encounter Visit Diagnoses Not on filedocumented in this encounter Care Teams Battery Vent Plug Inserter Relationship Specialty Start Date End Date Obdulio Aguirre AGNP PCP - General Family Medicine 01/28/22 12/28/22 documented as of this encounter
--- OUTSIDE RECORDS SUMMARY | 2025-03-08 15:19 | XMS_ITS | Encounter Summary ---
Author Organization [employer] Address [address] [facility] 7t [place] [address] Care Team Providers Care Forestry Tree Pruner Name Role Phone Aguirre Obdulio HATHAWAY Primary Care Provider Unavail able Encounter Details Date Type Department Care Team (Late Contact Info) Description 07/10/2022 Abstract [facility] ADULT DENTAL [address] [place] [address] Johnnie Baca, ZACH [address] [place], [place] [phone] Social History Tobacco Use Types Packs/Day Years [...] Description 06/27/2025 8:45 AM EDT Office Visit [facility] ADULT DENTAL [address] [place], [place] [phone] María Cervantes [address] [place] [address] documented as of this encounter Visit Diagnoses Not on filedocumented in this encounter Care Teams Forestry Tree Pruner Relationship Specialty Start Date End Date Obdulio Aguirre AGNP PCP - General Family Medicine 01/28/22 12/28/22 documented as of this encounter
--- OUTSIDE RECORDS SUMMARY | 2025-03-08 15:19 | XMS_ITS | Encounter Summary ---
Author Organization [employer] Address [address] [facility] 7t [place] [address] Care Team Providers Care Reversal Print Inspector Name Role Phone Aguirre Obdulio HATHAWAY Primary Care Provider Unavail able Encounter Details Date Type Department Care Team (Late Contact Info) Description 06/27/2022 Abstract [facility] ADULT DENTAL [address] [place] [address] Johnnie Baca, ZACH [address] [place], [place] [phone] Social History Tobacco Use Types Packs/Day Years [...] Description 06/27/2025 8:45 AM EDT Office Visit [facility] ADULT DENTAL [address] [place] [address] María Cervantes [address] [place] [address] documented as of this encounter Visit Diagnoses Not on filedocumented in this encounter Care Teams Reversal Print Inspector Relationship Specialty Start Date End Date Obdulio Aguirre AGNP PCP - General Family Medicine 01/28/22 12/28/22 documented as of this encounter
--- OUTSIDE RECORDS SUMMARY | 2025-03-08 15:19 | XMS_ITS | Encounter Summary ---
Author Organization [employer] Address [address] [facility] 7t [place] [address] Care Team Providers Care Weight And Balance Control Agent Name Role Phone Aguirre Obdulio HATHAWAY Primary Care Provider Unavail able Encounter Details Date Type Department Care Team (Late Contact Info) Description 06/25/2022 Abstract [facility] ADULT DENTAL [address] [place] [address] Johnnie Baca, ZACH [address] [place], [place] [phone] Social History Tobacco Use Types Packs/Day Years [...] Description 06/27/2025 8:45 AM EDT Office Visit [facility] ADULT DENTAL [address] [place] [address] María Cervantes [address] [place] [address] documented as of this encounter Visit Diagnoses Not on filedocumented in this encounter Care Teams Weight And Balance Control Agent Relationship Specialty Start Date End Date Obdulio Aguirre AGNP PCP - General Family Medicine 01/28/22 12/28/22 documented as of this encounter
--- OUTSIDE RECORDS SUMMARY | 2025-03-08 15:19 | XMS_ITS | Encounter Summary ---
Author Organization [employer] Address [address] [facility] 7t [place] [address] Care Team Providers Care Parts Salesperson Name Role Phone Obdulio Aguirre RIVAS Primary Care Provider Unavail able Encounter Details Date Type Department Care Team (Late Contact Info) Description 07/10/2022 Abstract [facility] ADULT DENTAL [address] [place] [address] Susan Willams, ROMANS [address] [place], [place] [phone] Social History Tobacco Use Types Packs/Day Years [...] Description 06/27/2025 8:45 AM EDT Office Visit [facility] ADULT DENTAL [address] [place] [address] María Cervantes [address] [place] [address] documented as of this encounter Visit Diagnoses Not on filedocumented in this encounter Care Teams Parts Salesperson Relationship Specialty Start Date End Date Obdulio Aguirre AGNP PCP - General Family Medicine 01/28/22 12/28/22 documented as of this encounter
--- OUTSIDE RECORDS SUMMARY | 2025-03-08 15:19 | XMS_ITS | Encounter Summary ---
Author Organization [email or web address] Address [address] [facility] 7t [place] [address] Care Team Providers Care Smoking Tobacco Packing Machine Hand Name Role Phone Obdulio Aguirre RIVAS Primary Care Provider Unavail able Encounter Details Date Type Department Care Team (Late Contact Info) Description 07/17/2022 Abstract [facility] ADULT DENTAL [address] [place] [address] Susan Willams, ROMANS [address] [place], [place] [phone] Social History Tobacco Use Types Packs/Day Years [...] 8:45 AM EDT Office Visit [facility] ADULT DENTAL [address] [place] [address] María Cervantes [address] [place] [address] documented as of this encounter Visit Diagnoses Not on filedocumented in this encounter Care Teams Smoking Tobacco Packing Machine Hand Relationship Specialty Start Date End Date Obdulio Aguirre AGNP PCP - General Family Medicine 01/28/22 12/28/22 documented as of this encounter
--- OUTSIDE RECORDS SUMMARY | 2025-03-08 15:20 | XMS_ITS | Encounter Summary ---
Author Organization [employer] Address [address] [place] [address] Care Team Providers Care House Visitor Name Role Phone Chela Mansfield MD Primary Care Provider Encounter Details Date Type Department Care Team (Late st Contact Info) Description 08/08/2024 Lab Requisition [facility] - Main Lab [address] [facility] [place] [address] Maricel Clemente PA [address] [place], [place] [phone] Urinary tract infection, site not specified; Dysuria [...] Urine No growth 08/09/2024 10:21 AM EDT [facility] Urine Urine specimen obtained by clean catch procedure / Unknown 08/08/2024 9:45 AM EDT 08/08/2024 12:13 PM EDT us Maricel [facility] MICRO[facility]OLOGY - GENERAL ORD ERABLES Final Result [facility] LAB [address] [place] [address], documented in this encounter Visit Diagnoses Diagnosis Urinary tract infection, site not specified Dysuria documented in this encounter Care Teams House Visitor Relationship Specialty Start Date End Date Chela Mansfield MD 2 [facility] , [address] [place] [address] Physician Associ D/B/A: [facility] MICHELLE Alvarado PCP - General Internal Medicine 11/16/20 documented as of this encounter
--- OUTSIDE RECORDS SUMMARY | 2025-03-08 15:20 | XMS_ITS | Encounter Summary ---
Author Organization [employer] [facility] Address [address] [facility] 7t [place] [address] Care Team Providers Care Ramp Service Employee Name Role Phone Obdulio Aguirre Primary Care Provider Unavail able Encounter Details Date Type Department Care Team (Latest Contact Info) Description 03/10/2019 Abstract [facility] CONVERSIONS Dental, Provider, DDS Social History [...] 8:45 AM EDT Office Visit [facility] ADULT DENTAL [address] [place] [address] Billy, María [address] [place] [address] documented as of this encounter Visit Diagnoses Not on filedocumented in this encounter Care Teams Ramp Service Employee Relationship Specialty Start Date End Date Obdulio Aguirre AGNP PCP - General Family Medicine 01/28/22 12/28/22 documented as of this encounter
--- OUTSIDE RECORDS SUMMARY | 2025-03-08 15:20 | XMS_ITS | Encounter Summary ---
Author Organization [employer] Address [address] [facility] 7t [place] [address] Care Team Providers Care Cost Estimating Engineer Name Role Phone Aguirre Obdulio HATHAWAY Primary Care Provider Unavail able Reason for Visit * Reason Onset Date Comments Appointment 07/28/2022 Jennifer Welch Patient called in and wanted to know if crown is in office to be able to give her appt please advise. Encounter Details Date Type Department Care Team ([facility] Contact Info) Description 07/28/2022 Telephone [facility] ADULT DENTAL [address] [place] [address] Johnnie Baca, DMD [address] [place] [address] Appointment (Jennifer Welch 1945 Patient called in [...] Description 06/27/2025 8:45 AM EDT Office Visit [facility] ADULT DENTAL [address] [place] [address] Billy, María [address] [place] [address] documented as of this encounter Visit Diagnoses Not on filedocumented in this encounter Care Teams Cost Estimating Engineer Relationship Specialty Start Date End Date Obdulio Aguirre AGNP PCP - General Family Medicine 01/28/22 12/28/22 documented as of this encounter
--- OUTSIDE RECORDS SUMMARY | 2025-03-08 15:20 | XMS_ITS | Encounter Summary ---
Author Organization [employer] [facility] Address [address] [facility] 7t [place] [address] Care Team Providers Care Chief Service Observer Name Role Phone Obdulio Aguirre Primary Care Provider Unavail able Encounter Details Date Type Department Care Team (Latest Contact Info) Description 02/10/2020 Abstract [facility] CONVERSIONS Dental, Provider, DDS Social [...] Description 06/27/2025 8:45 AM EDT Office Visit [facility] ADULT DENTAL [address] [place] [address] Billy, María [address] [place] [address] documented as of this encounter Visit Diagnoses Not on filedocumented in this encounter Care Teams Chief Service Observer Relationship Specialty Start Date End Date Obdulio Aguirre AGNP PCP - General Family Medicine 01/28/22 12/28/22 documented as of this encounter
--- OUTSIDE RECORDS SUMMARY | 2025-03-08 15:20 | XMS_ITS | Clinical Summary ---
Author Organization [address] [facility] Address [address] [place] [address] Phone Care Team Providers Care Director Agency & Strategic Partnerships Name Role Phone Chela Mansfield MD Primary [...] patient's age to complete this topic Insurance [facility] [place] [id number] Care Teams Director Agency & Strategic Partnerships Relationship Specialty Start Date End Date Chela Mansfield MD [address] [place] [address] , [address] Physician Associ D/B/A: [facility] [place] PCP - General Internal Medicine 11/16/20
--- OUTSIDE RECORDS SUMMARY | 2025-03-08 15:20 | XMS_ITS | Encounter Summary ---
Author Organization [employer] [facility] Address [address] [facility] 7t [place] [address] Care Team Providers Care Aircraft Engine Mechanic Overhaul Name Role Phone Obdulio Aguirre Primary Care [...] [facility] [address] [place] [address] Billy, María [address] [place] [address] documented as of this encounter Visit Diagnoses Not on filedocumented in this encounter Care Teams Aircraft Engine Mechanic Overhaul Relationship Specialty Start Date End Date Obdulio Aguirre AGNP PCP - General Family Medicine 01/28/22 12/28/22 documented as of this encounter
--- OUTSIDE RECORDS SUMMARY | 2025-03-08 15:20 | XMS_ITS | Encounter Summary ---
Author Organization [employer] [facility] Address 75 [facility] 7t [place] [address] Care Team Providers Care Lead Solutions Architect Name Role Phone Aguirre Obdulio HATHAWAY Primary Care Provider Unavail able Encounter Details Date Type Department Care Team (Late st Contact Info) Description 03/19/2022 Abstract [facility] ADULT DENTAL [address] [place] [address] Dental, Provider, DDS Social History Tobacco Use [...] Description 06/27/2025 8:45 AM EDT Office Visit [facility] ADULT DENTAL [address] [place] [address] María Cervantes [address] [place] [address] documented as of this encounter Procedures Procedure Name Priority Date/Time Associated Diagnosis Comments ,29,30,31 PARTIAL DENTURE - RESIN Routine 03/19/2022 12:00 [...] on filedocumented in this encounter Care Teams Lead Solutions Architect Relationship Specialty Start Date End Date Obdulio Aguirre AGNP PCP - General Family Medicine 01/28/22 12/28/22 documented as of this encounter
--- OUTSIDE RECORDS SUMMARY | 2025-03-08 15:20 | XMS_ITS | Encounter Summary ---
Author Organization [employer] [facility] Address [address] [facility] 7t [place] [address] Care Team Providers Care Electrical Tech/Project Manager Name Role Phone Obdulio Aguirre Primary Care Provider Unavail able Encounter Details Date Type Department Care Team (Latest Contact Info) Description 03/19/2021 Abstract [facility] CONVERSIONS Dental, Provider, DDS Social History [...] Description 06/27/2025 8:45 AM EDT Office Visit [facility] ADULT DENTAL [address] [place] [address] Billy, María [address] [place] [address] documented as of this encounter Visit Diagnoses Not on filedocumented in this encounter Care Teams Electrical Tech/Project Manager Relationship Specialty Start Date End Date Obdulio Aguirre AGNP PCP - General Family Medicine 01/28/22 12/28/22 documented as of this encounter
--- OUTSIDE RECORDS SUMMARY | 2025-03-08 15:20 | XMS_ITS | Clinical Summary ---
Author Organization [employer] Address [address] [place] [address] 7t [place] [address] Care Team Providers Care Software Clerk Name Role Phone Unavailable Primary Care [...] not crush, chew, or split. 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 Vitamin D deficiency 04/05/2013 Allergic rhinitis 10/09/2011 Backache 10/09/2011 Constipation 10/09/2011 Midline cystocele 10/09/2011 Varicose veins of lower extremity 10/09/2011 Encounters Date Type Department Care Team Description 12/27/2024 10:00 AM EDT Office Visit [facility] ADULT DENTAL [address] [place] [address] María Cervantes Partial edentulism, unspecified edentulism class (Primary Dx); Dental plaque; Tipped teeth; Localized gingival recession; Ill-fitting dentures 12/15/2024 9:00 AM EDT Office Visit [facility] ADULT DENTAL [address] [place] [address] Francois Smalls DDS Closed fracture of tooth, initial encounter (Primary Dx) from Last 3 Months Immunizations Immunization Administration Dates Next Due Influenza High-dose Quadriva lent Preservative Free 01/27/2023,01/14/2022,12/12/2020,01/31 Influenza injectable quadriv alent preservative free 01/18/2019,02/05/2017,01/19/2016 Influenza, High Dose Seasona l, Preservative Free 01/12/2018 Influenza, IIV3, injectable 03/23/2009 Moderna Covid-19 Vaccine 12+ 06/26/2020,05/29/19 21 Pneumococcal Conjugate PCV 13 12/12/2020, 017,10/09/2015 Pneumococcal [...] Description 06/27/2025 8:45 AM EDT Office Visit [facility] ADULT DENTAL [address] [place] [address] Billy, María [address] [place] [address] Health Maintenance Due Date Last Done Comments [...] AM EDT from Last [address] [place] [address] [place] [address] MEDICARE DENTAL - [facility] SCO
== END 2025-03-08 07:47 | disposition home or self-care (01) ==
LOC: HO.MAMMO 07:46
PROVIDERS: PCP Internal Medicine; Visit Provider Internal Medicine
DX: Z12.31 Encounter for screening mammogram for malignant neoplasm of breast (principal)
CPT/HCPCS: 77063; 77067

== ENCOUNTER → 2025-03-08 08:30 | Outpatient (BNV) | payer OTHER, SELFPAY | PROVIDERS: PCP Internal Medicine; Visit Provider Internal Medicine | DX: Z12.31 Encounter for screening mammogram for malignant neoplasm of breast (principal) | CPT/HCPCS: 77063; 77067 ==

== ENCOUNTER 2025-03-24 10:48 | Outpatient (AMB) | payer OTHER, SELFPAY ==
--- NOTE | 2025-03-24 11:12 | A.OFFPC_ITS ---
Vital Signs 03/24/25 11:13 Height 4 ft 9 in Weight 132 lb BMI 28.6 BP 120/60 Blood Pressure Location Lt brachial Position Sitting Pulse 83 Pulse Source Pulse Oximeter Temp 97.3 F Temp Source Temporal Artery Scan Pulse Oximetry (%) 98 Oxygen Delivery Method Room Air Intake Visit Reasons: Left knee swelling and pain Intake Note: Patient is here to follow up on left knee swelling and pain. Deputy Sheriff/Investigator Required: Yes Deputy Sheriff/Investigator Name: ID: [id number] [employer]: Not Required per policy Accompanied by: Self / Same As Patient Allergies apple (Apple) Allergy (Severe, Verified 03/24/25 11:13) THROAT SWELLING pear (Pear) Allergy (Severe, Verified 03/24/25 11:13) THROAT SWELLING banana (BANANA) Allergy (Intermediate, Verified 03/24/25 11:13) HIVES,THROAT SWELLING latex Allergy (Intermediate, Verified 03/24/25 11:13) Rash nystatin Allergy (Intermediate, Verified 03/24/25 11:13) swelling nuts Allergy (Severe, Uncoded 03/24/25 11:13) anaphylaxis fruits Allergy (Intermediate, Uncoded 03/24/25 11:13) anaphylaxis Medication List - Last Reconciled 03/24/25 by Brionna Hartman MD acetaminophen ER 650 mg PO Q8H PRN 30 days aspirin 81 mg PO DAILY 90 days calcium carbonate 1,200 mg (2 x 600 mg calcium (1,500 mg)) PO DAILY 90 days celecoxib 100 mg PO BID cetirizine 10 mg PO DAILY PRN 90 days cholecalciferol (vitamin D3) 25 mcg PO DAILY 90 days clotrimazole-betamethasone 1-0.05 % 1 appl topical BID docusate sodium (Colace) 200 mg (2 x 100 mg) PO BEDTIME epinephrine (EpiPen) 0.3 mg (0.3 mL) IM Q4H PRN 30 days magnesium 250 mg PO DAILY 90 days mirabegron ER (Myrbetriq) 25 mg PO DAILY 90 days hdygmvci-ybxcxzq-xkmf-lutein 1 tab PO .once a day 90 days polyethylene glycol 3350 (Miralax) 17 grams PO DAILY Tobacco use date assessed: 03/24/25 Fall risk assessment: No Falls in past year Last assessed Fall Risk: 03/24/25 Dental Screening Dental Screen Date: 01/04/25 HPI HPI Comments History of Present Illness Details The patient is a 80 year old female presenting with severe left knee pain. The pain began as discomfort a month ago and has become severe over the last three weeks, at times reaching a 10/10 intensity. The pain is exacerbated by climbing stairs and is associated with intermittent swelling, a sensation of the knee giving way, and subsequent loss of balance. denies knee injection. The patient reports no precipitating trauma or fall. She has been treating the pain by alternating Tylenol and Advil, which provides some relief. She also reports recent onset of cramping in both legs, worse on the left. Her past medical history is notable for hip arthritis. [facility] Medical History Internal and external thrombosed hemorrhoids Postmenopausal Physical exam Headache Low back pain Seasonal allergies Abdominal gas pain Right shoulder pain Left hip pain Right elbow pain Hypovitaminosis D Chronic constipation Surgical History History of tooth extraction Hx of colonoscopy Hx of cataract extraction Family History Father Throat cancer Mother Cancer of unknown origin Social History Household Members Other:: alone Housing: Apartment Alcohol intake: current Alcohol intake frequency: holidays/special occasions only Alcohol type: wine and hard liquor Patient Tobacco Use Status: Never used Tobacco Tobacco use type: Cigarette e-Cigarette/Vaping Use: Never Used Second Hand Smoke Exposure: No service: No Current occupational status: disabled Cognitive needs: No Hearing needs: Yes Vision needs: Yes Questionnaire Thrive Questionnaire Date Thrive assessed: 01/04/25 I am a: Patient What is your living situation today?: I have a steady place to live Within the past 12 months, did the food you bought not last and you didn't have the money to get more?: Never true Within the past 12 months, did you worry whether your food would run out before you got money to buy more?: Never true Do you have trouble paying for medicines?: No Do you have trouble getting transportation to medical appointments?: No Do you have trouble paying your heating and electricity bill?: No Do you have trouble taking care of your child, family member or friend?: No Do you have trouble with day-to-day activities such as bathing, preparing meals, shopping, managing finances, etc.?: No Are you currently unemployed and looking for a job?: No Are you interested in more education?: No Please select the resources that you would like help with: None Currently or been in a relationship where the following occur: No concerns reported THRIVE Score: 0 SUSI-7 AMB Questionnaire SUSI-7 Date SUSI - 7 assessed: 07/04/24 Source: Developed by Drs. Jeronimo De Leon, Joy Dominguez, Adonis Seth and colleagues, with an educational kristal from [employer]. Physical exam (Primary Care) Vital Signs: Last Vital Signs Temp 97.3 F 03/24/25 11:13 Pulse 83 03/24/25 11:13 BP 120/60 03/24/25 11:13 Pulse Ox 98 03/24/25 11:13 Oxygen Delivery Method Room Air 03/24/25 11:13 General: Well-appearing, alert, oriented ?3, in no acute distress. Cardiovascular: RRR, S1-S2 appreciated, no murmurs, rubs or gallops. Respiratory: Lungs clear to auscultation bilaterally, no wheezes, rales or rhonchi. knee exam: No erythema upon inspection. pain elicited with active movement of left knee. Tenderness to palpation over the medial aspect. Mild swelling noted of the left knee, Compared to right knee. Sensation intact. no signs of ligament laxity. BMI result Body Mass Index 28.6 Tobacco/Smoking Status: Tobacco use Status Tobacco use date assessed 03/24/25 03/24/25 11:18 Patient Tobacco Use Status Never used Tobacco 03/24/25 11:18 Tobacco use type Cigarette 03/24/25 11:18 e-Cigarette/Vaping Use Never Used 03/24/25 11:18 Thrive Assessment: Date of Thrive Assessment Date Thrive assessed 01/04/25 03/24/25 11:18 Currently or been in a relationship where the following occur: No concerns reported Coding Level of Care Code Est Pt Level 4 (84476) Diagnoses Left knee pain, unspecified chronicity M25.562 Chronicity: unspecified Assessment & Plan Assessment & Plan (1) Left knee pain: Code(s): M25.562 - Pain in left knee Category: Medical Qualifiers: Chronicity: unspecified Qualified Code(s): M25.562 - Pain in left knee Plan: patient presenting with progressive left knee pain with intermittent swelling over the past month without precipitating fall or trauma to the knee, likely s econdary to underlying osteoarthritis. We will obtain knee x-ray. For pain management, take celecoxib 100 mg twice a day for 5 days course. patient was counseled extensively to avoid concurrent use of NSAIDs like Advil or ibuprofen with celecoxib due to increased risk of GI bleeding and kidney injury. She identified she can continue Tylenol. Return to clinic if symptoms are not improving or worsening, For possible need for injection Orders: Orders XR knee LT 3V Today M25.569 - Pain in unspecified knee Medications: New celecoxib 100 mg PO BID 10 caps 0RF Discontinued melatonin Discontinued Reason: Patient no longer taking 5 mg PO BEDTIME 90 days PRN 90 tabs 0RF sleep celecoxib (Celebrex) Discontinued Reason: Patient no longer taking 100 mg PO BID 5 days PRN 10 caps 0RF pain
[2025-03-24 11:13] VITALS: BP 120/60; PULSE 83; TEMP 36.3; O2SAT 98; BMI 28.6
== END 2025-03-24 11:46 | disposition home or self-care (01) ==
LOC: HO.HMCH 10:49
PROVIDERS: PCP Internal Medicine; Visit Provider Student in an Organized Health Care Education/Training Program
DX: M25.562 Pain in left knee (principal)

== ENCOUNTER 2025-03-24 10:48 | Outpatient (REF) | payer OTHER, SELFPAY ==
--- NOTE | ~2025-03-24 | XR_ITS ---
EXAMINATION: XR KNEE, LEFT CLINICAL INFORMATION: M25.569 - Pain in unspecified knee COMPARISON: None available. TECHNIQUE: Three views of the left knee. FINDINGS: No fracture, dislocation, or suspicious bone lesion. There is anatomical alignment. Extremely mild joint space narrowing in the medial and patellofemoral compartments, consistent with very mild osteoarthrosis. Preservation of the lateral compartment. Minimal spurring of the lateral tibial spine. No evidence of joint effusion. Soft tissues demonstrate vascular calcifications but are otherwise normal. XR/XR knee LT 3V IMPRESSION: 1. No acute bony or soft tissue abnormalities of the left knee. No joint effusion. 2. Very mild osteoarthrosis in the medial and patellofemoral compartments. Electronically signed by: Trevor Maxwell MD 03/24/2025 12:28 PM JENN[facility]ER
== END 2025-03-24 10:49 | disposition home or self-care (01) ==
LOC: HO.XRAY 10:48
PROVIDERS: PCP Internal Medicine; Visit Provider Student in an Organized Health Care Education/Training Program
DX: M25.562 Pain in left knee (principal)
CPT/HCPCS: 73562

== ENCOUNTER → 2025-03-24 11:58 | Outpatient (BNV) | payer OTHER, SELFPAY | PROVIDERS: PCP Internal Medicine; Visit Provider Radiology Diagnostic Radiology | DX: M17.12 Unilateral primary osteoarthritis, left knee (principal) | CPT/HCPCS: 73562 ==